=== PATIENT | female | born 1985 | race African-American/Black ===

== ENCOUNTER 2017-07-01 14:03 | Outpatient (CLI) | payer MEDICAID ==
[~2017-07-01] VITALS: Ht 167.6 cm; Wt 85.4 kg
[~2017-07-01 14:03] MED LIST: CALC500T7 PO; DCS100C PO; HC2.5C30 TOP; HYDR-3720 PO; HYDR1TAB PO; IBP800T PO; METR500T PO; NITR-65 PO; OMEP40CA36 PO; ONDA-43 PO; ONDA8TAB9 PO; PNT40TEC PO; PREN1TAB71 PO; SCR1T PO; SRTR100T PO; TRAM50TA2 PO; TRAZ150T42 PO
[2017-07-01 14:20] VITALS: BP 120/82
--- NOTE | 2017-07-04 08:09 | Physician Query-Final Dx ---
ROLAND OQUENDO 07/04/17 0809: Clinic Account Progress/Dx Physician Query: Please give diagnosis Date of Service Jul 01, 2017 at 14:03 MARY AMEZCUA DO 07/19/17 1043: Clinic Account Progress/Dx DIAGNOSIS: Diagnosis low back pain third trimester ROLAND OQUENDO Jul 04, 2017 08:09 MARY AMEZCUA DO Jul 19, 2017 10:43
== END 2017-07-01 15:40 | disposition home or self-care (01) ==
LOC: WSo 14:03 → LDRP 14:03 → WSo 15:40
PROVIDERS: ATTEND Obstetrics & Gynecology
DX: O99.89 Other specified diseases and conditions complicating pregnancy, childbirth and the puerperium (principal); M54.5 Low back pain; Z3A.32 32 weeks gestation of pregnancy
CPT/HCPCS: 99213

== ENCOUNTER 2017-07-20 12:08 | Outpatient (CLI) | payer MEDICAID ==
[~2017-07-20] VITALS: Ht 160 cm; Wt 84.4 kg
[2017-07-20 12:20] VITALS: BP 115/66
[2017-07-20] MEDS: D5 LR IV SOLUTION 1,000 ML IV SCH ×3 (12:25→16:30)
[2017-07-20 12:37] LABS: BASOPHILS % (AUTO) 0 % (0-10); EOSINOPHILS # (AUTO) 0.2 10^3/uL (0.0-0.3); EOSINOPHILS % (AUTO) 1 % (0-10); LYMPHOCYTES # (AUTO) 3.7 X 10^3 (1.0-4.0); LYMPHOCYTES % (AUTO) 22 % (12-44); MEAN CORPUSCULAR HEMOGLOBIN 28 PG (25-34); MEAN CORPUSCULAR HGB CONC 34 G/DL (32-36); MEAN CORPUSCULAR VOLUME 83 FL (80-99); MEAN PLATELET VOLUME 9.2 FL (7.4-10.4); MONOCYTES # (AUTO) 1.8 X 10^3 (0.0-1.0); MONOCYTES % (AUTO) 10 % (0-12); NEUTROPHILS # (AUTO) 11.4 X 10^3 (1.8-7.8); NEUTROPHILS % (AUTO) 67 % (42-75); PLATELET COUNT 365 10^3/uL (130-400); RED BLOOD COUNT 4.07 10^6/uL (4.35-5.85); RED CELL DISTRIBUTION WIDTH 13.9 % (10.0-14.5); WHITE BLOOD COUNT 17.2 10^3/uL (4.3-11.0)
[2017-07-20 12:55] LABS: BAND NEUTROPHILS 1 %; EOSINOPHILS % (MANUAL) 2 %; LYMPHOCYTES % (MANUAL) 21 %; NEUTROPHILS % (MANUAL) 67 %
[2017-07-20] MEDS ORDERED: CITRIC ACID/SOB CIT (BICITRA) 30 ML UDC PO ONE (15:00)
[2017-07-20 15:10] VITALS: BP 118/59
--- NOTE | 2017-07-20 17:15 | Progress Note-Standard ---
Standard Progress Note Progress Notes/Assess & Plan Date Seen by Provider: Jul 20, 2017 Time Seen by Provider: 17:10 Progress/Assessment & Plan this patient is a 31-year-old female currently at 35 gestation. She was seen in my clinic on this date for routine follow-up. She did complain of sensation of leaking fluid per the vagina in the night. she also complained of feeling somewhat queasy and with decreased appetite and increased thirst. Nitrazine was performed on the vaginal discharge that was negative. Fern test was performed on a sample of the vaginal discharge taken from the posterior fornix. That was negative. Patient denied bleeding. An ultrasound was performed showing an DECLAN of 41 mm. Patient was sent to labor and delivery for medical evaluation for lab work and for hydration. Her lab work follows Laboratory Tests 07/20/17 12:26 Vital Signs Date Time Temp Pulse Resp B/P (MAP) Pulse Ox O2 Delivery O2 Flow Rate FiO2 07/20/17 15:10 98.0 112 20 118/59 Room Air 07/20/17 12:20 97.3 114 20 115/66 Room Air I & O 07/21/17 07:00 Intake Total 1000 ml Balance 1000 ml monitor shows a beautifully reactive heart rate strip. Bedside sono shows an DECLAN of 58 mm. patient reports feeling significantly improved after her hydration. Her physical exam is unremarkable. She does appear to be comfortable. Assessment and plan 35+ week gestation with oligohydramnios likely due to mild dehydration possibly due to a viral syndrome. She is symptomatically improved with hydration the DECLAN has increased from 41mm to 58 mm which is still somewhat low but it is within the range of normal that being from 50 mm to 240 mm. Plan is for discharge home with strict regard options to return to clinic for any signs or symptoms or indications of leaking fluid, labor, progressive unrelenting nausea vomiting or diarrhea. Patient is return to clinic next week as scheduled and when necessary. Final Diagnosis oligohydramnios/dehydration LYNDA DE LEON MD Jul 20, 2017 5:15 pm
== END 2017-07-20 17:15 | disposition home or self-care (01) ==
LOC: WSo 12:08 → LDRP 12:09 → 3RD 12:38 → LDRP 12:38 → WSo 17:15
PROVIDERS: ATTEND Obstetrics & Gynecology
DX: O41.03X0 Oligohydramnios, third trimester, not applicable or unspecified (principal); E86.0 Dehydration; Z3A.35 35 weeks gestation of pregnancy
CPT/HCPCS: 36415; 85007; 85027; 86850; 86900; 86901; 96360; 96361; 99213

== ENCOUNTER 2017-07-21 02:27 | Outpatient (CLI) | payer MEDICAID ==
[~2017-07-21] VITALS: Ht 160 cm; Wt 86.2 kg
[2017-07-21] MEDS ORDERED: D5 LR IV SOLUTION 1,000 ML IV ONE (02:45)
[2017-07-21] MEDS ORDERED: ONDANSETRON 4 MG/2 ML (SDV) Z0FRAN ONE (02:50)
[2017-07-21 03:00] VITALS: BP 114/69
[2017-07-21] MEDS: D5 LR IV SOLUTION 1,000 ML IV SCH ×2 (03:00→07:34)
[2017-07-21] MEDS ORDERED: ONDANSETRON 4 MG/2 ML (SDV) Z0FRAN IVP ONE (03:15)
[2017-07-21 03:19] LABS: BILIRUBIN,URINE NEGATIVE (NEGATIVE); KETONES,URINE NEGATIVE (NEGATIVE); LEUKOCYTE ESTERASE ,URINE 1+ (NEGATIVE); NITRITE,URINE NEGATIVE (NEGATIVE); PH,URINE 8 (5-9); PROTEIN,URINE NEGATIVE (NEGATIVE); UROBILINOGEN,URINE NORMAL (NORMAL)
[2017-07-21 03:20] LABS: BASOPHILS % (AUTO) 0 % (0-10); EOSINOPHILS # (AUTO) 0.3 10^3/uL (0.0-0.3); EOSINOPHILS % (AUTO) 1 % (0-10); LYMPHOCYTES # (AUTO) 4.1 X 10^3 (1.0-4.0); LYMPHOCYTES % (AUTO) 22 % (12-44); MEAN CORPUSCULAR HEMOGLOBIN 27 PG (25-34); MEAN CORPUSCULAR HGB CONC 33 G/DL (32-36); MEAN CORPUSCULAR VOLUME 84 FL (80-99); MEAN PLATELET VOLUME 9.4 FL (7.4-10.4); MONOCYTES # (AUTO) 2.1 X 10^3 (0.0-1.0); MONOCYTES % (AUTO) 12 % (0-12); NEUTROPHILS # (AUTO) 11.8 X 10^3 (1.8-7.8); NEUTROPHILS % (AUTO) 64 % (42-75); PLATELET COUNT 355 10^3/uL (130-400); RED BLOOD COUNT 3.61 10^6/uL (4.35-5.85); RED CELL DISTRIBUTION WIDTH 13.7 % (10.0-14.5); WHITE BLOOD COUNT 18.3 10^3/uL (4.3-11.0)
[2017-07-21 03:40] LABS: ALANINE AMINOTRANSFERASE 6 U/L (0-55); ALBUMIN 2.7 GM/DL (3.2-4.5); ANION GAP 9 MMOL/L (5-14); ASPARTATE AMINO TRANSFERASE 9 U/L (5-34); BILIRUBIN,TOTAL 0.2 MG/DL (0.1-1.0); BLOOD UREA NITROGEN 4 MG/DL (7-18); BUN/CREATININE RATIO 7; CALCIUM 8.8 MG/DL (8.5-10.1); CARBON DIOXIDE 23 MMOL/L (21-32); CHLORIDE 106 MMOL/L (98-107); CREATININE SERUM 0.56 MG/DL (0.60-1.30); GFR ESTIMATED > 60; GLUCOSE 93 MG/DL (70-105); POTASSIUM 3.5 MMOL/L (3.6-5.0); SODIUM 138 MMOL/L (135-145); TOTAL PROTEIN 5.3 GM/DL (6.4-8.2)
[2017-07-21 03:46] LABS: BAND NEUTROPHILS 2 %; EOSINOPHILS % (MANUAL) 1 %; HYPOCHROMASIA SLIGHT; LYMPHOCYTES % (MANUAL) 16 %; NEUTROPHILS % (MANUAL) 74 %
[2017-07-21] MEDS ORDERED: CLINDAMYCIN 900 MG/6ML (CLEOCIN) VIAL ONE (03:53)
[2017-07-21] MEDS ORDERED: NS (IVPB) 50 ML ONE (03:54)
[2017-07-21] MEDS ORDERED: CLINDAMYCIN INJECTION 900 MG in NS (IVPB) 50 ML IV SCH ×2 (06:00→12:00)
[2017-07-21 07:25] VITALS: BP 107/67
--- NOTE | 2017-07-21 07:54 | Progress Note-Standard ---
Standard Progress Note Progress Notes/Assess & Plan Date Seen by Provider: Jul 21, 2017 Time Seen by Provider: 07:50 Progress/Assessment & Plan this patient is a 31-year-old female at 35-6/7 weeks' gestation. She was just released last evening after being clinically evaluated through the day and hydrated due to oligohydramnios. Inclining with oligo sent to labor and delivery hydrated and her oligo had improved from 41 mm at 58mm.with the oligohydramnios resolved to a satisfactory point patient was discharged home. Patient returned down last evening with unrelenting nausea and vomiting. She was not febrile. She denied ruptured membranes or bleeding. She had no diarrhea. She again was hydrated and treated with antiemetics to good effect. This morning patient is already requesting discharge. Her nausea has resolved. She is having no contractions. She denies ruptured membranes or bleeding. Allergies are Ceclor Medications are vitamins Medical social surgical obstetric and family history is upper that apartment. Patient generally is well-developed well-nourished female currently no acute distress. The abdomen is soft nontender gravid and benign She'll be show clubbing cyanosis. Pelvic exam is deferred. monitor showed normal heart rate pattern no contractions Laboratory Tests 07/21/17 03:00 assessment and plan 35 and 6 weeks gestation with hyperemesis likely due to viral syndrome. Patient is symptomatically improved and requested discharge home. Patient will be discharged with follow-up in clinic. Final Diagnosis viral gastroenteritis/hyperemesis LYNDA DE LEON MD Jul 21, 2017 7:54 am
--- NOTE | 2017-07-21 07:55 | Discharge Instructions ---
Discharge Instructions Discharge Medications New, Converted or Re-Newed RX: Other Patient Instructions Patient Instructions: as directed Return to [facility] For: as directed Activity & Diet Discharge Diet: No Restrictions Activity as Tolerated: Yes Orders-Post D/C & Referrals return to clinic when necessary and as scheduled for OB LYNDA DE LEON MD Jul 21, 2017 7:55 am
[2017-07-21 08:05] VITALS: BP 107/67
== END 2017-07-21 08:05 | disposition home or self-care (01) ==
LOC: LDRP 02:27 → WSo 02:27
PROVIDERS: ATTEND Obstetrics & Gynecology
DX: O98.513 Other viral diseases complicating pregnancy, third trimester (principal); A08.4 Viral intestinal infection, unspecified; Z3A.35 35 weeks gestation of pregnancy
CPT/HCPCS: 36415; 80053; 81000; 85007; 85027; 87088; 96361; 96374; 96375; 99213

== ENCOUNTER 2017-07-28 13:08 | Outpatient (CLI) | payer MEDICAID ==
[~2017-07-28] VITALS: Ht 160 cm; Wt 85.3 kg
[2017-07-28 13:23] VITALS: BP 122/67
[2017-07-28] MEDS ORDERED: ACET-2267 PO (13:32)
[2017-07-28] MEDS ORDERED: AZIT1PAC11 PO (13:32)
--- NOTE | 2017-07-29 11:21 | Physician Query-Final Dx ---
ROLAND OQUENDO 07/29/17 1121: Clinic Account Progress/Dx Physician Query: Please give diagnosis Date of Service Jul 28, 2017 at 13:08 LYNDA DE LEON MD 07/29/17 1145: Clinic Account Progress/Dx DIAGNOSIS: Diagnosis false labor ROLAND OQUENDO Jul 29, 2017 11:21 LYNDA DE LEON MD Jul 29, 2017 11:45
== END 2017-07-28 14:05 | disposition home or self-care (01) ==
LOC: WSo 13:08 → LDRP 13:09 → WSo 14:05
PROVIDERS: ATTEND Obstetrics & Gynecology
DX: O47.03 False labor before 37 completed weeks of gestation, third trimester (principal); Z3A.36 36 weeks gestation of pregnancy
CPT/HCPCS: 99213

== ENCOUNTER 2017-08-05 13:45 | Inpatient (IN) | payer MEDICAID ==
[~2017-08-05] VITALS: Ht 160 cm; Wt 85.3 kg
[~2017-08-05 13:45] MED LIST changes: +ACET-2267 PO; +AZIT1PAC11 PO
--- OUTSIDE RECORDS SUMMARY | 2017-08-05 13:53 | XMS REPORT ---
Author Author GENERATED, SYSTEM Organization Unknown Address Unknown Phone Unavailable Care Team Providers Care Replenishment Merchandising Associate Name Role Phone PP Unavailable Reason For Visit Chief Complaint VAGINAL BLEEDING Social History Functional Status Vital Signs Results Chemistry from 12/24/2016 8:54 PMSODIUM 138 MMOL/L (136-145 MMOL/L) POTASSIUM 3.6 MMOL/L (3.5-5.1 MMOL/L) CHLORIDE 102 MMOL/L (98-107 MMOL/L) TCO2 28.2 MMOL/L (21.0-32.0 MMOL/L) *ANION GAP 7.8 MMOL/L L (8.0-16.0 MMOL/L) BUN 14 MG/DL (7-18 MG/DL) CREATININE 0.78 MG/DL (0.55-1.02 MG/DL) *BUN/CREATININE RATIO 17.9 H (9.1-17.0 ) GLUCOSE 96 MG/DL (65-99 MG/DL) *GFR EST NON AFR EGYPTIAN >90 ML/MIN (Reference Range: not available) *GFR EST AFR AMER >90 ML/MIN (Reference Range: not available) CALCIUM 9.0 MG/DL (8.5-10.1 MG/DL) BILIRUBIN TOTAL 0.20 MG/DL (0.20-1.00 MG/DL) TOTAL PROTEIN 6.9 GM/DL (6.4-8.2 GM/DL) ALBUMIN 3.6 GM/DL (3.4-5.0 GM/DL) *GLOBULIN 3.3 GM/DL (2.3-3.5 GM/DL) *A/G RATIO 1.1 MG/DL L (1.5-2.2 MG/DL) ALK PHOS 55 U/L (46-116 U/L) ALT (SGPT) 14 U/L L (16-63 U/L) AST (SGOT) 11 U/L L (15-37 U/L) LIPASE 119 U/L (73-393 U/L) HCG QUANT 35972 MIU/ML H (0-6 MIU/ML) Hematology from 12/24/2016 8:54 PMWBC 15.2 X10e3/UL H (3.6-11.2 X10e3/UL) RBC 4.77 X10e6/UL (3.63-4.92 X10e6/UL) HEMOGLOBIN 13.2 G/DL (11.0-14.3 G/DL) HEMATOCRIT 40.4 % (31.2-41.9 %) *MCV 84.9 FL (79.0-98.0 FL) *MCH 27.7 PG (27.0-33.0 PG) *MCHC 32.7 G/DL (32.0-36.0 G/DL) *RDW 14.3 % (12.3-17.0 %) *RDWSD 42.4 (37.1-47.8 ) PLATELET 284 X10e3/UL (159-386 X10e3/UL) *MPV 7.7 FL (7.4-10.4 FL) AUTOMATED DIFF PERFORMED (Reference Range: not available) SEGS 58.6 % (Reference Range: not available) *LYMPHOCYTES 31.0 % (Reference Range: not available) *MONOCYTES 7.6 % (Reference Range: not available) *EOSINOPHILS 2.0 % (Reference Range: not available) *BASOPHILS 0.8 % (Reference Range: not available) *ABSOLUTE NEUTROPHILS 8.90 X10e3/UL H (1.80-7.80 X10e3/UL) *ABSOLUTE LYMPHOCYTES 4.70 X10e3/UL H (1.00-3.00 X10e3/UL) *ABSOLUTE MONOCYTES 1.20 X10e3/UL H (0.30-1.00 X10e3/UL) *ABSOLUTE EOSINOPHILS 0.30 X10e3/UL (0.00-0.50 X10e3/UL) *ABSOLUTE BASOPHILS 0.10 X10e3/UL (0.00-0.20 X10e3/UL) Urinalysis from 12/24/2016 9:15 PM*URINE COLOR STRAW (STRAW/YELL/DK YELL ) *URINE APPEARANCE CLEAR (CLEAR ) URINE PH 7.0 (5.0-8.0 ) URINE SPECIFIC GRAVITY 1.020 (<=1.005->=1.030 ) *URINE GLUCOSE NEGATIVE MG/DL (NEGATIVE MG/DL) *URINE BILIRUBIN NEGATIVE (NEGATIVE ) *URINE KETONES NEGATIVE MG/DL (NEGATIVE MG/DL) *URINE BLOOD NEGATIVE (NEGATIVE ) *URINE PROTEIN NEGATIVE MG/DL (NEGATIVE MG/DL) *URINE UROBILINOGEN 0.2 EU/DL (0.2-1.0 EU/DL) *URINE NITRITES POSITIVE A (NEGATIVE ) *URINE LEUKOCYTES NEGATIVE (NEGATIVE ) *MICROSCOPIC EXAM PERFORMED PERFORMED (Reference Range: not available) *WBC URINE 0-1 /HPF (0-5 /HPF) *SQUAMOUS EP. CELLS FEW /LPF (NEG-FEW /LPF) *BACTERIA MANY /HPF A (NEGATIVE /HPF) Microbiology from 12/24/2016 11:45 PM* *SOHA- FUNGAL SMEAR Specimen Number: [id number] Sample Collection Date/Time: 12/24/2016 11:45 PM Specimen Source: Cervix Cervix *WET PREP: No Trichomonas seen No yeast seen Few Clue cells seen *SOHA- FUNGAL SMEAR: No yeast or fungal elements seen CULTURE GC PROFILE: No growth * *WET PREP Specimen Number: [id number] Sample Collection Date/Time: 12/24/2016 11:45 PM Specimen Source: Cervix Cervix *WET PREP: No Trichomonas seen No yeast seen Few Clue cells seen *SOHA- FUNGAL SMEAR: No yeast or fungal elements seen CULTURE GC PROFILE: No growth * CULTURE GC PROFILE (Preliminary Result) Specimen Number: [id number] Sample Collection Date/Time: 12/24/2016 11:45 PM Specimen Source: Cervix Cervix *WET PREP: No Trichomonas seen No yeast seen Few Clue cells seen CULTURE GC PROFILE: No growth *SOHA- FUNGAL SMEAR: No yeast or fungal elements seen Microbiology from 12/24/2016 9:15 PM* CULTURE URINE (Preliminary Result) Specimen Number: [id number] Sample Collection Date/Time: 12/24/2016 9:15 PM Specimen Source: Urine Clean Catch CULTURE URINE: Gram-negative bacillus >100,000 cfu/ml ID and Susceptibility to follow Blood Bank from 12/24/2016 9:13 PMRH TYPE POS (Reference Range: not available ) Problems Encounter Diagnosis No relevant problems exist. Encounters Encounter Diagnosis No relevant problems exist. Plan of Care Procedures No relevant procedures performed. Immunizations No immunizations administered or ordered. Hospital Course Hospital Discharge Instructions Allergies, Adverse Reactions, Alerts This section is inbound call center representative of the current allergy information, at the time of the CCD generation. In the case of regeneration of the CCD, the allergy information may not reflect the state of known allergies at the time of the CCD' s subject visit. * Latex Allergy has not been assessed. * IV Contrast Allergy has not been assessed. Medication Medication reconciliation has not been performed.
--- OUTSIDE RECORDS SUMMARY | 2017-08-05 13:53 | XMS REPORT ---
Author Author GENERATED, SYSTEM Organization Unknown Address Unknown Phone Unavailable Care Team Providers Care Uranium Processing Supervisor Name Role Phone PP Unavailable Reason For Visit Chief Complaint SCHOLIOSIS/BACK PAIN, NAUSEA Social History Functional Status Vital Signs Results Problems Encounter Diagnosis No relevant problems exist. Encounters Encounter Diagnosis No relevant problems exist. Plan of Care Procedures No relevant procedures performed. Immunizations No immunizations administered or ordered. Hospital Course Hospital Discharge Instructions Allergies, Adverse Reactions, Alerts * Latex Allergy has not been assessed. * IV Contrast Allergy has not been assessed. Medication Medication reconciliation has not been performed.
--- OUTSIDE RECORDS SUMMARY | 2017-08-05 13:54 | XMS REPORT ---
Author Author GENERATED, SYSTEM Organization Unknown Address Unknown Phone Unavailable Care Team Providers Care Cane Flume Feeding Machine Operator Name Role Phone PP Unavailable Reason For Visit Chief Complaint TOOTH PAIN Social History Functional Status Vital Signs Results Problems Encounter Diagnosis No relevant problems exist. Encounters Encounter Diagnosis No relevant problems exist. Plan of Care Procedures No relevant procedures performed. Immunizations No immunizations administered or ordered. Hospital Course Hospital Discharge Instructions Allergies, Adverse Reactions, Alerts This section is sales representative gas service of the current allergy information, at the [...]
--- OUTSIDE RECORDS SUMMARY | 2017-08-05 13:54 | XMS REPORT | Summary of Care ---
Author Author Francis Cano M.D. Organization Unknown Address Unknown Phone Unavailable Care Team Providers Care Senior Environmental Scientist Name Role Phone Francis Cano M.D. Unavailable Unavailable No Assigned PCP-Pt Confirmed Unavailable Unavailable Functional Status Name Dates Details Functional status health issues are not documented Status: Name Dates Details Cognitive status health issues are not documented Status: Problems Name Dates Details Encounter for supervision of normal in multigravida in second trimester (V22.1, Z34.82) Status: Active Medications Name Dates Details PNV Plus Multivitamin 27-1 MG Oral Tablet Brian Cano M.D. E * Start Active Allergies and Adverse Reactions Name Dates Details Ceclor CAPS (Allergy) Status: Active Procedures Procedure Dates Details Chlamydia/GC TMA Assay [id number] Ordered: HIV Ag/Ab Combo 3405 Ordered: OBSTETRIC PANEL 2130 Ordered: Immunization Name Dates Details Immunizations not documented Social History Name Dates Details Unknown if ever smoked Vital Signs Date Test Result Details 14:14 BP Systolic 102 mm[Hg] Status: Comments: Location: ; Position: BP Diastolic 58 mm[Hg] Status: Comments: Location: ; Position: Height 63 in Status: Weight 165 lb Status: Body Mass Index Calculated 29.23 kg/m2 Status: Body Surface Area Calculated 1.78 m2 Status: Results Date Description Value Details 15:53 CBC w/ Auto Diff 7150 Comments: Manual differential indicated. WBC 15.8 K/uL (Above high threshold) Range: 4.5-11.0 RBC 4.70 mil/uL Range: 3.60-5.00 HGB 13.7 g/dL Range: 12.0-16.0 HCT 39.5 % Range: 36.0-48.0 MCV 84.2 fL Range: 80.0-99.0 MCH 29.2 pg Range: 27.3-32.5 MCHC 34.7 % Range: 32.0-36.0 RDW 13.7 % Range: 11.6-14.8 PLATELETS 273 K/uL Range: 150-400 MPV 7.1 fL Range: 6.0-11.0 16:16 Manual Differential 7400 SEGS 71 % Range: 37-80 BANDS 1 % Range: 0-7 LYMPH 24 % Range: 13-50 MONO 4 % Range: 0-12 EOSIN 0 % Range: 0-7 BASO 0 % Range: 0-3 KENNETH LYMPH 0 % Range: 0-0 META 0 % Range: 0-0 MYELO 0 % Range: 0-0 PRO 0 % Range: 0-0 BLAST 0 % Range: 0-0 NUC RBC 0 /100 WBC Range: 0-0 SMUDGE 0 /100 WBC PLATELET Adequate Range: Adequate Plan of Care Name Dates Details Planned Observations Planned Goals not documented Planned Encounters Appointment; Provider: Brian Cano M.D. On 06-Apr-2017 15:00 Interventions Provided Labs/Procedures/Imaging* Chlamydia/GC TMA Assay [id number]; To be Done: 09 Mar 2017 * HIV Ag/Ab Combo 3405; To be Done: 09 Mar 2017 * OBSTETRIC PANEL 2130; To be Done: 09 Mar 2017 Instructions Name Dates Details Instructions not documented Encounters Appointment; Brian Cano M.D. Encounter Diagnosis: Problem not documented On 14:15 Appointment; Brian Cano M.D. Encounter Diagnosis: Problem not documented On 10:00
--- OUTSIDE RECORDS SUMMARY | 2017-08-05 13:54 | XMS REPORT ---
Author Author CARLOS HAYES [facility] eClinicalWorks Address Unknown Phone Unavailable Care Team Providers Care Podiatry Assistant Name Role Phone CARLOS HAYES Unavailable Allergies No Known Allergies Problems Problem Type Condition ICD-9 Code Onset Dates Condition Status Assessment Dental examination V72.2 Active Problem Nondependent tobacco use disorder 305.1 Active Problem Counseling on substance use and abuse V65.42 Active Problem Dizziness and giddiness 780.4 Active Problem Sebaceous cyst 706.2 Active Problem Syncope and collapse 780.2 Active Problem Scoliosis (and kyphoscoliosis), idiopathic 737.30 Active Problem Shortness of breath 786.05 Active Problem Unspecified procreative management V26.9 Active Problem Unspecified backache 724.5 Active Medications No Known Medications Procedures Procedure Coding System Code Date PANORAMIC FILM SEE ALSO CODE 21976 CPT-4 D0330 May 01, 2015 LTD ORAL EVALUATION - PROBLEM FOCUS CPT-4 D0140 May 01, 2015 Results No Known Results Summary Purpose eClinicalWorks Submission
--- OUTSIDE RECORDS SUMMARY | 2017-08-05 13:54 | XMS REPORT ---
Author Author GENERATED, SYSTEM Organization Unknown Address Unknown Phone Unavailable Care Team Providers Care Staff Appraiser Name Role Phone PP Unavailable Reason For Visit Chief Complaint RIGHT SIDE PAIN Social History Functional Status Vital Signs Results Chemistry from 12/19/2016 12:19 PMSODIUM 137 MMOL/L (136-145 MMOL/L) POTASSIUM 3.9 MMOL/L (3.5-5.1 MMOL/L) CHLORIDE 103 MMOL/L (98-107 MMOL/L) TCO2 27.6 MMOL/L (21.0-32.0 MMOL/L) *ANION GAP 6.4 MMOL/L L (8.0-16.0 MMOL/L) BUN 8 MG/DL (7-18 MG/DL) CREATININE 0.72 MG/DL (0.55-1.02 MG/DL) *BUN/CREATININE RATIO 11.1 (9.1-17.0 ) GLUCOSE 79 MG/DL (65-99 MG/DL) *GFR EST NON AFR TURKMEN >90 ML/MIN (Reference Range: not available) *GFR EST AFR AMER >90 ML/MIN (Reference Range: not available) CALCIUM 8.5 MG/DL (8.5-10.1 MG/DL) BILIRUBIN TOTAL 0.60 MG/DL (0.20-1.00 MG/DL) TOTAL PROTEIN 6.9 GM/DL (6.4-8.2 GM/DL) ALBUMIN 3.6 GM/DL (3.4-5.0 GM/DL) *GLOBULIN 3.3 GM/DL (2.3-3.5 GM/DL) *A/G RATIO 1.1 MG/DL L (1.5-2.2 MG/DL) ALK PHOS 55 U/L (46-116 U/L) ALT (SGPT) 16 U/L (16-63 U/L) AST (SGOT) 12 U/L L (15-37 U/L) TEST POSITIVE (NEGATIVE ) Hematology from 12/19/2016 12:19 PMWBC 10.0 X10e3/UL (3.6-11.2 X10e3/UL) RBC 4.82 X10e6/UL (3.63-4.92 X10e6/UL) HEMOGLOBIN 13.6 G/DL (11.0-14.3 G/DL) HEMATOCRIT 40.6 % (31.2-41.9 %) *MCV 84.2 FL (79.0-98.0 FL) *MCH 28.2 PG (27.0-33.0 PG) *MCHC 33.5 G/DL (32.0-36.0 G/DL) *RDW 14.2 % (12.3-17.0 %) *RDWSD 42.4 (37.1-47.8 ) PLATELET 282 X10e3/UL (159-386 X10e3/UL) *MPV 7.7 FL (7.4-10.4 FL) AUTOMATED DIFF PERFORMED (Reference Range: not available) SEGS 54.9 % (Reference Range: not available) *LYMPHOCYTES 31.3 % (Reference Range: not available) *MONOCYTES 10.4 % (Reference Range: not available) *EOSINOPHILS 2.6 % (Reference Range: not available) *BASOPHILS 0.8 % (Reference Range: not available) *ABSOLUTE NEUTROPHILS 5.50 X10e3/UL (1.80-7.80 X10e3/UL) *ABSOLUTE LYMPHOCYTES 3.10 X10e3/UL H (1.00-3.00 X10e3/UL) *ABSOLUTE MONOCYTES 1.00 X10e3/UL (0.30-1.00 X10e3/UL) *ABSOLUTE EOSINOPHILS 0.30 X10e3/UL (0.00-0.50 X10e3/UL) *ABSOLUTE BASOPHILS 0.10 X10e3/UL (0.00-0.20 X10e3/UL) Problems Encounter Diagnosis No relevant problems exist. Encounters Encounter Diagnosis No relevant problems exist. Plan of Care Procedures No relevant procedures performed. Immunizations No immunizations administered or ordered. Hospital Course Hospital Discharge Instructions Allergies, Adverse Reactions, Alerts This section is financial services representative of the current allergy information, at [...]
--- OUTSIDE RECORDS SUMMARY | 2017-08-05 13:54 | XMS REPORT ---
Author Author GENERATED, SYSTEM Organization Unknown Address Unknown Phone Unavailable Care Team Providers Care Linoleum Printer Name Role Phone PP Unavailable Reason For Visit Chief Complaint 9 WKS PREG. BLEEDING Social History Functional Status Vital Signs Results Urinalysis from 01/12/2017 10:15 AM*URINE COLOR YELLOW (STRAW/YELL/DK YELL ) *URINE APPEARANCE SL CLOUDY A (CLEAR ) URINE PH 6.0 (5.0-8.0 ) URINE SPECIFIC GRAVITY 1.020 (<=1.005->=1.030 ) *URINE GLUCOSE NEGATIVE MG/DL (NEGATIVE MG/DL) *URINE BILIRUBIN NEGATIVE (NEGATIVE ) *URINE KETONES NEGATIVE MG/DL (NEGATIVE MG/DL) *URINE BLOOD NEGATIVE (NEGATIVE ) *URINE PROTEIN NEGATIVE MG/DL (NEGATIVE MG/DL) *URINE UROBILINOGEN 0.2 EU/DL (0.2-1.0 EU/DL) *URINE NITRITES POSITIVE A (NEGATIVE ) *URINE LEUKOCYTES TRACE A (NEGATIVE ) *MICROSCOPIC EXAM PERFORMED PERFORMED (Reference Range: not available) *WBC URINE 25-50 /HPF A (0-5 /HPF) *SQUAMOUS EP. CELLS FEW /LPF (NEG-FEW /LPF) *MUCOUS THREADS FEW /LPF A (NEGATIVE /LPF) *BACTERIA FEW /HPF A (NEGATIVE /HPF) Microbiology from 01/12/2017 10:45 AM* *SOHA- FUNGAL SMEAR Specimen Number: [id number] Sample Collection Date/Time: 01/12/2017 10:45 AM Specimen Source: Genital Vaginal/Cervix *WET PREP: Many Clue cells seen No Trichomonas seen *SOHA- FUNGAL SMEAR: No yeast or fungal elements seen * *WET PREP Specimen Number: [id number] Sample Collection Date/Time: 01/12/2017 10:45 AM Specimen Source: Genital Vaginal/Cervix *WET PREP: Many Clue cells seen No Trichomonas seen *SOHA- FUNGAL SMEAR: No yeast or fungal elements seen Problems Encounter Diagnosis No relevant problems exist. Encounters Encounter Diagnosis No relevant problems exist. Plan of Care Procedures No relevant procedures performed. Immunizations No immunizations administered or ordered. Hospital Course Hospital Discharge Instructions Allergies, Adverse Reactions, Alerts This section is entry level marketing representative of the current allergy information, at [...]
--- OUTSIDE RECORDS SUMMARY | 2017-08-05 13:54 | XMS REPORT ---
Author CARLOS Hernandez Organization eClinicalWorks Address Unknown Phone Unavailable Care Team Providers Care Crystalizer Operator Name Role Phone CARLOS PAULINO CP Unavailable Allergies No Known Allergies Problems Problem Type Condition Code Onset Dates Condition Status Problem Counseling on substance use and abuse V65.42 Active Problem Shortness of breath 786.05 Active Problem Nondependent tobacco use disorder 305.1 Active Assessment Gastritis, presence of bleeding unspecified, unspecified chronicity , unspecified gastritis type K29.70 Active Problem Syncope and collapse 780.2 Active Problem Dizziness and giddiness 780.4 Active Problem Anxiety associated with depression F41.8 Active Problem Unspecified backache 724.5 Active Problem Scoliosis (and kyphoscoliosis), idiopathic 737.30 Active Problem Sebaceous cyst 706.2 Active Problem Unspecified procreative management V26.9 Active Medications No Known Medications Procedures Procedure Coding System Code Date Office Visit, New Pt., Level 2 CPT-4 91196 Apr 27, 2016 Vital Signs Date/Time: Apr 27, 2016 Cardiac Monitoring Heart Rate 78 bpm Weight 141 lbs Height 63 in BMI 24.97 Index Blood Pressure Diastolic 76 mmHg Blood Pressure Systolic 108 mmHg Results No Known Results Summary Purpose eClinicalWorks Submission
[2017-08-05] MEDS ORDERED: LACTATED RINGERS 1,000 ML IV ONE (13:55)
[2017-08-05 14:00] VITALS: BP 103/66
[2017-08-05] MEDS ORDERED: LACTATED RINGERS 1,000 ML IV PRN ×2 (14:31)
[2017-08-05 14:37] LABS: BASOPHILS % (AUTO) 0 % (0-10); EOSINOPHILS # (AUTO) 0.2 10^3/uL (0.0-0.3); EOSINOPHILS % (AUTO) 1 % (0-10); LYMPHOCYTES # (AUTO) 3.6 X 10^3 (1.0-4.0); LYMPHOCYTES % (AUTO) 20 % (12-44); MEAN CORPUSCULAR HEMOGLOBIN 27 PG (25-34); MEAN CORPUSCULAR HGB CONC 33 G/DL (32-36); MEAN CORPUSCULAR VOLUME 83 FL (80-99); MEAN PLATELET VOLUME 10.3 FL (7.4-10.4); MONOCYTES # (AUTO) 1.7 X 10^3 (0.0-1.0); MONOCYTES % (AUTO) 9 % (0-12); NEUTROPHILS # (AUTO) 12.7 X 10^3 (1.8-7.8); NEUTROPHILS % (AUTO) 70 % (42-75); PLATELET COUNT 366 10^3/uL (130-400); RED BLOOD COUNT 4.36 10^6/uL (4.35-5.85); WHITE BLOOD COUNT 18.2 10^3/uL (4.3-11.0)
[2017-08-05] MEDS ORDERED: CATHETER FLUSH 10 ML SYR IV PRN (14:45)
[2017-08-05] MEDS ORDERED: FAMOTIDINE 20MG/2ML IV (PEPCID) IV ONE ×2 (14:45→17:30)
[2017-08-05] MEDS ORDERED: METOCLOPRAMIDE INJ 10 MG/2 ML (REGLAN) IV ONE ×2 (14:45→17:30)
[2017-08-05] MEDS ORDERED: ceFAZolin 2 GM/50 ML NS 50 ML IV ONE (14:45)
[2017-08-05] MEDS ORDERED: CITRIC ACID/SOB CIT (BICITRA) 30 ML UDC PO ONE ×2 (14:45→17:30)
[2017-08-05] MEDS ORDERED: metroNIDAZOLE 500MG/100ML IVPB 100 ML IV ONE (14:45)
[2017-08-05 14:51] LABS: BAND NEUTROPHILS 0 %; BASOPHILS % (MANUAL) 0 %; EOSINOPHILS % (MANUAL) 2 %; LYMPHOCYTES % (MANUAL) 12 %; NEUTROPHILS % (MANUAL) 70 %; REACTIVE LYMPHOCYTES 8 %
[2017-08-05] MEDS ORDERED: ONDANSETRON 4 MG/2 ML (SDV) Z0FRAN ONE ×2 (16:55→18:24)
[2017-08-05] MEDS ORDERED: KETOROLAC 30 MG/ML VIAL ONE ×2 (16:55→18:24)
[2017-08-05] MEDS ORDERED: D5 LR IV SOLUTION 1,000 ML IV SCH (17:18)
--- NOTE | 2017-08-05 17:26 | History & Physical ---
History and Physical Date Seen by Provider: Aug 05, 2017 Time Seen by Provider: 17:24 this patient is a 31-year-old female at 37-5/7 weeks gestation who has had a previous she was cleaned and clinic on this date found to have an DECLAN of 27. Her DECLAN has been borderline around 50 for a couple of weeks at one point she was admitted with a low DECLAN hydrated and a recovered. She's 37-5/7 weeks' gestation with fairly significant decrease in her DECLAN she is admitted now for repeat delivery. She denies rupture membranes or bleeding and assessment for amniotic fluid per the vagina was negative. Allergies are to Ceclor Medications are vitamins Past medical history, past surgical history, obstetric history, family history, and social histories are per the antepartum record HEENT exam is normal Neck is supple no lymphadenopathy and no thyromegaly Abdomen is gravid soft nontender nondistended the fundal height is about low side Pelvic exam is deferred Extreme show clubbing cyanosis. There is no Homans sign Laboratory Tests 08/05/17 14:00 White blood cell count is elevated hemoglobin is normal platelet count is normal Assessment and plan 37-5/7 weeks' gestation in a patient with severe oligohydramnios and previous . Of note is that her white count is elevated. Plan is for admission for repeat delivery now 37-5/7 weeks' gestation with previous and severe oligohydramnios Allergies and Home Medications Allergies Coded Allergies: cefaclor (Verified Allergy, Intermediate, HIVES, 08/24/07) Home Medications Acetaminophen 500 Mg Tablet, 1,000 MG PO Q6H, (Reported) Vit/Fe Fumarate/Fa 1 Each Tablet, 1 EACH PO HS, (Reported) Clinical Quality Measures DVT/VTE Risk/Contraindication: Risk Factor Score Per Nursin RFS Level Per Nursing on Admit: 1=Low/No VTE PPX LYNDA DE LEON MD Aug 05, 2017 5:26 pm
--- NOTE | 2017-08-05 17:27 | Progress Note-Post Operative ---
Post-Operative Progess Note Surgeon (s)/Stock Grader (s) Surgeon LYNDA DE LEON MD Stock Grader: Radha Auguste Pre-Operative Diagnosis 37 5/7 weeks' gestation with severe oligohydramnios and previous Post-Operative Diagnosis signed Procedure & Operative Findings Date of Procedure 08/05/17 Procedure Performed/Findings repeat low transverse delivery Anesthesia Type spinal Estimated Blood Loss Estimated blood loss (mL): 350cc Specimens/Packing Specimens Removed placenta and umbilical cord and cord bloods Packing: none LYNDA DE LEON MD Aug 05, 2017 17:27
[2017-08-05] MEDS ORDERED: LACTATED RINGERS 1,000 ML IV SCH ×2 (17:28)
[2017-08-05] MEDS ORDERED: CLINDAMYCIN 900 MG/6ML (CLEOCIN) VIAL ONE (17:29)
[2017-08-05] MEDS ORDERED: D5 LR IV SOLUTION 1,000 ML IV ONE (17:29)
[2017-08-05] MEDS ORDERED: MEPERIDINE (DEMEROL) INJ 100 MG/ML IM PRN (17:30)
[2017-08-05] MEDS ORDERED: PROMETHAZINE INJ 25 MG/ML (PHENERGAN) AMP IM PRN (17:30)
[2017-08-05] MEDS ORDERED: CLINDAMYCIN INJECTION 900 MG in NS (IVPB) 50 ML IV ONE (17:30)
[2017-08-05] MEDS ORDERED: MEASLES,MUMPS,RUBELLA 1 EA INJ SC ONE (17:30)
[2017-08-05] MEDS ORDERED: TETANUS,DIPTH,PERTUSS P/F (BOOSTRIX) 0.5 ML VIAL IM ONE (17:30)
[2017-08-05] MEDS ORDERED: NS (IVPB) 50 ML ONE (17:30)
[2017-08-05] MEDS ORDERED: ONDANSETRON 4 MG/2 ML (SDV) Z0FRAN IVP PRN (17:30)
[2017-08-05] MEDS ORDERED: fentaNYL INJECTION 100 MCG/2 ML AMP ONE (18:07)
[2017-08-05] MEDS ORDERED: DEXAMETHASONE 10 MG/ML (DECADRON) 1 ML VIAL ONE (18:24)
[2017-08-05] MEDS ORDERED: OXYTOCIN/NORMAL SALINE 1,000 ML IV ONE (18:38)
[2017-08-05] MEDS: KETOROLAC 30 MG/ML VIAL IVP SCH (19:00)
[2017-08-05 19:55] VITALS: BP 99/67
[2017-08-05 21:00] VITALS: BP 101/64
[2017-08-05] MEDS: OXYTOCIN/NORMAL SALINE 500 ML IV SCH (21:00)
[2017-08-05] MEDS: oxyCODONE/APAP 10/325MG (PERCOCET 10) TABLET PO PRN ×2 (21:59→22:51)
[2017-08-06] VITALS: BP 99/58
[2017-08-06] MEDS: OXYTOCIN/NORMAL SALINE 500 ML IV SCH (01:01)
--- NOTE | 2017-08-06 03:43 | OPERATIVE REPORT ---
DATE OF SERVICE: 08/05/2017 PREOPERATIVE DIAGNOSES: Term at 37-5/7 weeks' gestation with previous and with severe oligohydramnios. POSTOPERATIVE DIAGNOSES: Term at 37-5/7 weeks' gestation with previous and with severe oligohydramnios. OPERATIVE PROCEDURE: Repeat low transverse delivery of a viable male with Apgars of 8 and 9 at 1 and 5 minutes respectively, weight of 7 pounds 5 ounces. Cord arterial blood pH of 7.30 and a time of 1838. OPERATIVE DESCRIPTION: With the patient in the supine position under satisfactory spinal anesthesia, she was prepped and draped in the usual fashion for abdominal surgery. Gleason catheter was placed in the urinary bladder. Repeat Pfannenstiel incision made through the skin with a scalpel at the site of the patient's previous Pfannenstiel incision. The abdomen was entered in the usual manner. Bladder retractor placed in position and a clean scalpel used to make a 4 cm hysterotomy incision transversely across the lower uterine segment at this site. There was a large uterine window extending entirely across the lower uterine segment and approximately 2.5 to 3 cm in height. The membranes and the peritoneum were incised releasing a very small amount of amniotic fluid that was meconium stained. There was no particulate meconium. The incision was extended by blunt dissection. Sanchez forceps were applied to facilitate delivery of a vigorous viable male with Apgars of 8 and 9 at 1 and 5 minutes respectively, weight is 7 pounds and 5 ounces. Cord blood pH and time as noted above. The was bulb suctioned on delivery of the head and again on completion of delivery. The umbilical cord was doubly clamped and cut and the passed to Kathi Culp RN, the pediatric nurse in attendance for the delivery. The placenta delivered spontaneously Tillman. It was heavily calcified, but otherwise normal. It was sent to pathology for permanent section. The uterus was exteriorized, the anterior wiped clean with a wet laparotomy sponge. Uterine incision then closed with a running lock suture of 2-0 Vicryl. Hemostasis was complete. The uterus was returned to the abdominal cavity. All blood clot and debris removed from the abdominal cavity. Sponge and needle counts correct. Hemostasis assured. The anterior parietal peritoneum was closed with a running suture of 2-0 Vicryl. Rectus muscles were closed with that suture as well rectus fascia was closed with 2-0 Vicryl, subcutaneous tissue with 2-0 Vicryl and the skin was stapled. Sponge and needle counts were correct on completion of the procedure. ESTIMATED BLOOD LOSS: Around 350 mL. The patient tolerated the procedure well and was transferred to the recovery room in stable condition. The infant had been taken stable to the full term nursery under the care of nurse Culp. Job ID: [id number] DocumentID: [id number] Dictated Date: 08/05/2017 22:38:25 Station Cook Date: 08/06/2017 03:42:26 Dictated By: LYNDA DE LEON MD
[2017-08-06 03:52] VITALS: BP 108/65
[2017-08-06] MEDS: oxyCODONE/APAP 10/325MG (PERCOCET 10) TABLET PO PRN ×3 (03:52→16:59)
[2017-08-06] MEDS: KETOROLAC 30 MG/ML VIAL IVP SCH ×2 (06:13)
--- NOTE | 2017-08-06 07:16 | Progress Note-Standard ---
Standard Progress Note Progress Notes/Assess & Plan Date Seen by Provider: Aug 06, 2017 Time Seen by Provider: 07:14 Progress/Assessment & Plan is without complaint. She is ambulating, voiding, tolerating by mouth, has pain control. Patient denies chest pain, denies shortness of breath, denies headache, denies nausea vomiting. Vital Signs Date Time Temp Pulse Resp B/P (MAP) Pulse Ox O2 Delivery O2 Flow Rate FiO2 08/06/17 03:52 97.2 74 18 108/65 (79) 98 Room Air 08/06/17 00:00 97.2 90 20 99/58 (72) 97 Room Air 08/05/17 21:00 97.9 88 18 101/64 (76) 98 Room Air 08/05/17 19:55 98.1 78 20 99/67 (78) 99 Room Air 08/05/17 14:00 97.6 115 20 103/66 (78) Room Air I & O 08/06/17 07:00 Intake Total 1056 ml Output Total 450 ml Balance 606 ml vital signs stable. Patient is afebrile. abdomen is benign. Incision is clean dry and intact. Extremities show no clubbing cyanosis. Homans sign. There is some pretibial pitting edema that is normal. Assessment and plan postoperative day number 1 status post repeat doing well. Plan is for routine care today with likely discharge home tomorrow LYNDA DE LEON MD Aug 06, 2017 7:15 am
[2017-08-06] MEDS ORDERED: OXYC-465 PO (07:17)
[2017-08-06] MEDS ORDERED: DOCU100C37 PO (07:17)
[2017-08-06] MEDS ORDERED: IBUP-1780 PO (07:17)
--- NOTE | 2017-08-06 07:19 | Discharge Instructions ---
Discharge Instructions Discharge Medications New, Converted or Re-Newed RX: RX on Chart Patient Instructions Patient Instructions: as directed Return to The Hospital For: as directed Activity & Diet Discharge Diet: No Restrictions Activity as Tolerated: No Orders-Post D/C & Referrals Follow Up Appt: RTC on Saturday, August 12, 2017 at 930 a.m. for incision check. Call to make follow up appt. for patient in 4 weeks. Wound Care: Remove vandana, apply benzoin and steri strips. Activity Per routine post instructions. Diet as tolerated Patient may shower or tub bathe as desired. Continue home meds LYNDA DE LEON MD Aug 06, 2017 7:19 am
[2017-08-06] MEDS: DOCUSATE SODIUM 100 MG (COLACE) CAP PO SCH ×2 (10:01→21:06)
[2017-08-06] MEDS ORDERED: IBUPROFEN 800 MG (MOTRIN) TAB PO ONE (13:07)
[2017-08-06] MEDS: IBUPROFEN 800 MG (MOTRIN) TAB PO SCH ×2 (13:14→18:09)
--- NOTE | 2017-08-06 13:19 | Anesthesia-Regional Post-Op ---
Regional Patient Condition Mental Status: Alert, Oriented x3 Circulation: Same as Pre-Op Headache: Absent Sensation: Full Recovery Motor Block: Absent Post Op Complications Complications None Follow Up Care/Instructions Patient Instructions None needed. Anesthesia/Patient Condition Patient is doing well, no complaints per nursing staff, stable vital signs, no apparent adverse anesthesia problems. She was off the floor but ambulating well per nursing staff. Will be available if needed. SAIDA WISDOM DO Aug 06, 2017 13:19
[2017-08-06 15:21] VITALS: BP 106/71
[2017-08-06 21:06] VITALS: BP 91/53
[2017-08-07 03:49] VITALS: BP 87/57
[2017-08-07] MEDS: IBUPROFEN 800 MG (MOTRIN) TAB PO SCH ×3 (03:49→14:21)
[2017-08-07] MEDS: DOCUSATE SODIUM 100 MG (COLACE) CAP PO SCH (08:26)
[2017-08-07] MEDS: oxyCODONE/APAP 10/325MG (PERCOCET 10) TABLET PO PRN (08:26)
--- NOTE | 2017-08-07 10:16 | Progress Note-Standard ---
Standard Progress Note Progress Notes/Assess & Plan Date Seen by Provider: Aug 07, 2017 Time Seen by Provider: 10:15 Progress/Assessment & Plan is without complaint. She is ambulating, voiding, tolerating by mouth, has pain control. Patient denies chest pain, denies shortness of breath, denies headache, denies nausea vomiting. Vital Signs Date Time Temp Pulse Resp B/P (MAP) Pulse Ox O2 Delivery O2 Flow Rate FiO2 08/06/17 03:52 97.2 74 18 108/65 (79) 98 Room Air 08/06/17 00:00 97.2 90 20 99/58 (72) 97 Room Air 08/05/17 21:00 97.9 88 18 101/64 (76) 98 Room Air 08/05/17 19:55 98.1 78 20 99/67 (78) 99 Room Air 08/05/17 14:00 97.6 115 20 103/66 (78) Room Air I & O 08/06/17 07:00 Intake Total 1056 ml Output Total 450 ml Balance 606 ml vital signs stable. Patient is afebrile. abdomen is benign. Incision is clean dry and intact. Extremities show no clubbing cyanosis. Homans sign. There is some pretibial pitting edema that is normal. Assessment and plan postoperative day number 1 status post repeat doing well. Plan is for routine care today with likely discharge home tomorrow August 07, 2017. Patient is without complaint. She is ablating a voiding well has good pain control. She is requesting discharge home. Vital Signs Date Time Temp Pulse Resp B/P (MAP) Pulse Ox O2 Delivery O2 Flow Rate FiO2 08/07/17 03:49 97.7 82 18 87/57 (67) 97 Room Air 08/06/17 21:06 97.3 86 18 91/53 (66) 98 Room Air 08/06/17 15:21 97.9 74 18 106/71 (83) 99 Room Air I & O 08/07/17 07:00 Intake Total 1560 ml Output Total 900 ml Balance 660 ml Vital signs are stable. Patient is afebrile. abdomen is benign. Incision is clean dry and intact. Extreme show clubbing cyanosis. There is no Homans sign. Assessment and plan postoperative day number 2 status post repeat doing well. Plan is for discharge home with follow-up in clinic. If the baby is not discharged patient may room in. Final Diagnosis repeat at 37-5/7 weeks' gestation due to severe oligo LYNDA DE LEON MD Aug 07, 2017 10:16 am
[2017-08-07 10:25] VITALS: BP 118/81
== END 2017-08-07 14:30 | disposition home or self-care (01) | DRG 766 ==
LOC: LDRP 13:45
PROVIDERS: ADMIT Obstetrics & Gynecology; ATTEND Obstetrics & Gynecology
PROC: 10D00Z1 Extraction of Products of Conception, Low, Open Approach (ICD-10-PCS; principal; 2017-08-05 18:13)
DX: O41.03X0 Oligohydramnios, third trimester, not applicable or unspecified (principal); O34.211 Maternal care for low transverse scar from previous cesarean delivery; Z3A.37 37 weeks gestation of pregnancy; Z37.0 Single live birth
CPT/HCPCS: 36415; 85007; 85027; 86850; 86900; 86901; 87081; 94664

== ENCOUNTER 2017-12-06 15:44 | Emergency (ER) | payer MEDICAID ==
[~2017-12-06] VITALS: Ht 160 cm; Wt 78.9 kg
[~2017-12-06 15:44] MED LIST changes: +DOCU100C37 PO; +IBUP-1780 PO; +OXYC-465 PO
--- OUTSIDE RECORDS SUMMARY | 2017-12-06 15:51 | XMS REPORT | Continuity of Care Document ---
Author Author [facility] Address Unknown Phone Unavailable Allergies Active Description Code Type Severity Reaction Onset Reported/Identified Relationship to Patient Clinical Status Yes cefaclor [id number] Drug Allergy Moderate HIVES 08/24/2007 Yes Ceclor Drug Allergy N/A N/A 01/13/2011 Medications Medication Packaging Start Date Stop Date Route Dosage Sig PNV Plus Multivitamin 27-1 MG Oral Tablet Tablet 03/09/2017 Tablet Problems Date Dx Coded Attending Type Code Diagnosis Diagnosed By 04/09/2008 SHALINI WATKINS APRN 724.2 PAIN LOW BACK 04/09/2008 SHALINI WATKINS APRN R V25.40 CONTRACEPTIVE SURVEILLANCE UNSPECIFIED 04/09/2008 SHALINI WATKINS APRN R V25.49 SURVEILLANCE OF OTHER CONTRACEPTIVE METHOD 01/13/2011 SHALINI WATKINS APRN R V72.31 PARACHUTE PANEL JOINER EXAM, ROUTINE 01/13/2011 SHALINI WATKINS APRN R V74.5 STD SCREEN 04/13/2012 SHALINI WATKINS APRN R 706.2 SEBACEOUS CYST 04/13/2012 SHALINI WATKINS APRN R V26.9 PROCREATIVE MANAGEMENT 04/27/2012 SHALINI WATKINS APRN R 305.1 TOBACCO ABUSE 04/27/2012 SHALINI WATKINS APRN R 724.5 BACKACHE UNSPECIFIED 04/27/2012 SHALINI WATKINS APRN R 737.30 SCOLIOSIS (AND KYPHOSCOLIOSIS) IDIOPATHIC 04/27/2012 SHALINI WATKINS APRN R 786.05 SHORTNESS OF BREATH 04/27/2012 SHALINI WATKINS APRN R V65.42 COUNSELING - SMOKING CESSATION 07/24/2013 MOISES ROLLINS, LYNDA Mckinley Ot 644.03 THRT YASH LABOR-ANTEPART 07/24/2013 MOISES ROLLINS, LYNDA Mckinley Ot V04.81 ND FOR PROPHYLACTIC VACCIN AND INOCULATI 07/24/2013 MOISES ROLLINS, LYNDA Mckinley Ot V06.1 [id number], COMBINED [ 09/17/2013 LYNDA DE LEON MD, Ot 644.03 THRT YASH LABOR-ANTEPART 09/30/2013 LYNDA DE LEON MD, Ot 644.03 THRT YASH LABOR-ANTEPART 10/20/2013 LYNDA DE LEON MD, Ot 654.21 PREV DELIVRY W/ OR W/O MENT ANT 10/20/2013 LYNDA DE LEON MD, Ot V27.0 DELIVER-SINGLE LIVEBORN 11/08/2013 SHALINI WATKINS APRN R 780.2 SYNCOPE AND COLLAPSE 11/08/2013 SHALINI WATKINS APRN R 780.4 DIZZINESS AND VERTIGO 11/13/2014 Ot 305.70 AMPHETAMINE ABUSE-UNSPEC 11/13/2014 Ot 535.51 UNSPEC GASTRITIS GASTRODUODENITIS, W/ 11/13/2014 Ot 787.01 NAUSEA WITH VOMITING 06/07/2017 Working Z23 Encounter for immunization KaiacarolannBrian 07/01/2017 MARY AMEZCUA DO Ot M54.5 LOW BACK PAIN 07/01/2017 MARY AMEZCUA DO Ot O99.89 OTH DISEASES AND CONDITIONS COMPL PREG/C 07/01/2017 MARY AMEZCUA DO, Ot Z3A.32 32 WEEKS GESTATION OF 07/20/2017 LYNDA DE LEON MD Ot 654.23 PREV DELIVERY, ANTEPARTUM COND 07/20/2017 LYNDA DE LEON MD, Ot V72.63 PRE-PROCEDURAL LABORATORY EXAMINATION 07/20/2017 LYNDA DE LEON MD, Ot V74.8 SCREEN-BACTERIAL DIS NEC 07/20/2017 ALMA WEEKS DO Ot 285.9 ANEMIA NOS 07/20/2017 LYNDA DE LEON MD, Ot E86.0 DEHYDRATION 07/20/2017 LYNDA DE LEON MD, Ot O41.03X0 OLIGOHYDRAMNIOS, THIRD TRIMESTER, NOT AP 07/20/2017 LYNDA DE LEON MD, Ot Z3A.35 35 WEEKS GESTATION OF 07/21/2017 LYNDA DE LEON MD, Ot A08.4 VIRAL INTESTINAL INFECTION, UNSPECIFIED 07/21/2017 LYNDA DE LEON MD, Ot O98.513 OTHER VIRAL DISEASES COMPLICATING PREGNA 07/21/2017 LYNDA DE LEON MD, Ot Z3A.35 35 WEEKS GESTATION OF 07/25/2017 LYNDA DE LEON MD, Ot E86.0 DEHYDRATION 07/25/2017 LYNDA DE LEON MD, Ot O41.03X0 OLIGOHYDRAMNIOS, THIRD TRIMESTER, NOT AP 07/25/2017 LYNDA DE LEON MD, Ot Z3A.35 35 WEEKS GESTATION OF 07/26/2017 LYNDA DE LEON MD, Ot A08.4 VIRAL INTESTINAL INFECTION, UNSPECIFIED 07/26/2017 LYNDA DE LEON MD, Ot O98.513 OTHER VIRAL DISEASES COMPLICATING PREGNA 07/26/2017 LYNDA DE LEON MD, Ot ZCarol.35 35 WEEKS GESTATION OF 07/28/2017 LYNDA DE LEON MD, Ot O47.03 FALSE LABOR BEFORE 37 COMPLETED WEEKS OF 07/28/2017 LYNDA DE LEON MD, Ot Z3A.36 36 WEEKS GESTATION OF 08/03/2017 LYNDA DE LEON MD, Ot O47.03 FALSE LABOR BEFORE 37 COMPLETED WEEKS OF 08/03/2017 LYNDA DE LEON MD, Ot Z3A.36 36 WEEKS GESTATION OF 08/07/2017 LYNDA DE LEON MD, Ot O34.211 MATERN CARE FOR LOW TRANSVERSE SCAR FROM 08/07/2017 LYNDA DE LEON MD, Ot O41.03X0 OLIGOHYDRAMNIOS, THIRD TRIMESTER, NOT AP 08/07/2017 LYNDA DE LEON MD, Ot Z37.0 SINGLE LIVE 08/07/2017 LYNDA DE LEON MD, Ot ZCarol.37 37 WEEKS GESTATION OF Procedures Code Description Performed By Performed On 74.1 LOW CERVICAL 10/19/2013 24943 ROUTINE VENIPUNCTURE 11/08/2013 84624 EKG, TRACING 11/08/2013 96276 URINE DRUG SCREEN (IN-HOUSE ) 11/08/2013 75008 UA W/ CULTURE IF INDICATED 11/08/2013 71872 CBC 11/08/2013 9828206 GFR CALC (RESULT ONLY) 11/08/2013 69753 CMP 11/08/2013 56673 CULTURE URINE 11/09/2013 10717 Immunization Admin with counseling Brian Cano 06/07/2017 81107 Immunization Adm Single Vaccine Brian Cano 06/07/2017 35453 Influenza vaccine, quad, IM , 3yr T > Brian Cano 06/07/2017 68272 Tdap, 7 Yrs & Older Brian Cano 06/07/2017 [id number] EXTRACTION OF POC, LOW CERVICAL, OPEN AP 08/05/2017 Results Test Result Range CBC WITH PLATELET AND DIFFERENTIAL - 12/19/16 12:19 SEGS 54.9 % NRG *BASOPHILS 0.8 % NRG *EOSINOPHILS 2.6 % NRG AUTOMATED DIFF PERFORMED NRG *LYMPHOCYTES 31.3 % NRG *MONOCYTES 10.4 % NRG *ABSOLUTE BASOPHILS 0.10 10*3/uL 0.00-0.20 *ABSOLUTE EOSINOPHILS 0.30 10*3/uL 0.00-0.50 *ABSOLUTE LYMPHOCYTES 3.10 10*3/uL 1.00-3.00 *ABSOLUTE MONOCYTES 1.00 10*3/uL 0.30-1.00 *ABSOLUTE NEUTROPHILS 5.50 10*3/uL 1.80-7.80 MPV 7.7 fL 7.4-10.4 PLATELETS 282 10*3/uL 159-386 WBC 10.0 10*3/uL 3.6-11.2 RBC 4.82 3.63-4.92 HEMOGLOBIN 13.6 11.0-14.3 HEMATOCRIT 40.6 % 31.2-41.9 MCV 84.2 fL 79.0-98.0 MCH 28.2 pg 27.0-33.0 MCHC 33.5 32.0-36.0 RDW 14.2 % 12.3-17.0 RDWSD 42.4 37.1-47.8 TEST - 12/19/16 12:19 TEST POSITIVE NEGATIVE COMPREHENSIVE METABOLIC PANEL - 12/19/16 12:19 BILIFUBIN TOTAL 0.60 0.20-1.00 TOTAL PROTEIN 6.9 6.4-8.2 ALBUMIN 3.6 3.4-5.0 *GLOBULIN 3.3 2.3-3.5 *A/G RATIO 1.1 1.5-2.2 ALK PHOS 55 U/L 46-116 ALT (SGPT) 16 U/L 16-63 AST (SGOT) 12 U/L 15-37 GFR ESTIMATION - 12/19/16 12:19 *GFR EST NON AFR NEW ZEALANDER >90 mL/min NRG *GRFA EST AFR AMER >90 mL/min NRG CBC WITH PLATELET AND DIFFERENTIAL - 12/24/16 20:54 SEGS 58.6 % NRG *BASOPHILS 0.8 % NRG *EOSINOPHILS 2.0 % NRG AUTOMATED DIFF PERFORMED NRG *LYMPHOCYTES 31.0 % NRG *MONOCYTES 7.6 % NRG *ABSOLUTE BASOPHILS 0.10 10*3/uL 0.00-0.20 *ABSOLUTE EOSINOPHILS 0.30 10*3/uL 0.00-0.50 *ABSOLUTE LYMPHOCYTES 4.70 10*3/uL 1.00-3.00 *ABSOLUTE MONOCYTES 1.20 10*3/uL 0.30-1.00 *ABSOLUTE NEUTROPHILS 8.90 10*3/uL 1.80-7.80 MPV 7.7 fL 7.4-10.4 PLATELETS 284 10*3/uL 159-386 WBC 15.2 10*3/uL 3.6-11.2 RBC 4.77 3.63-4.92 HEMOGLOBIN 13.2 11.0-14.3 HEMATOCRIT 40.4 % 31.2-41.9 MCV 84.9 fL 79.0-98.0 MCH 27.7 pg 27.0-33.0 MCHC 32.7 32.0-36.0 RDW 14.3 % 12.3-17.0 RDWSD 42.4 37.1-47.8 COMPREHENSIVE METABOLIC PANEL - 12/24/16 20:54 BILIFUBIN TOTAL 0.20 0.20-1.00 TOTAL PROTEIN 6.9 6.4-8.2 ALBUMIN 3.6 3.4-5.0 *GLOBULIN 3.3 2.3-3.5 *A/G RATIO 1.1 1.5-2.2 ALK PHOS 55 U/L 46-116 ALT (SGPT) 14 U/L 16-63 AST (SGOT) 11 U/L 15- GFR ESTIMATION - 12/24/16 20:54 *GFR EST NON AFR NEW ZEALANDER >90 mL/min NRG *GRFA EST AFR AMER >90 mL/min NRG LIPASE - 12/24/16 20:54 LIPASE 119 U/L 73-393 HCG QUANT - 12/24/16 20:54 HCG QUANT 51975 0-6 RH TYPE - 12/24/16 21:13 RH TYPE POS NRG URINALYSIS (CULTURE PRN) - 12/24/16 21:15 *URINE APPEARANCE CLEAR CLEAR *URINE BILIRUBIN NEGATIVE NEGATIVE *URINE BLOOD NEGATIVE NEGATIVE *URINE GLUCOSE NEGATIVE NEGATIVE *URINE KETONES NEGATIVE NEGATIVE *URINE LEUKOCYTES NEGATIVE NEGATIVE *URINE NITRITES POSITIVE NEGATIVE URINE PH 7.0 5.0-8.0 *URINE PROTEIN NEGATIVE NEGATIVE URINE SPECIFIC GRAVITY 1.020 <=1.005->=1.030 *URINE UROBILINOGEN 0.2 0.2-1.0 *URINE COLOR STRAW STRAW/YELL/DK YELL URINE MICROSCOPIC - 12/24/16 21:15 WBC 0-1 /[HPF] 0-5 MICROSCOPIC EXAM PERFORMED PERFORMED NRG SQUAMOUS EP. CELLS FEW /[LPF] NEG-FEW BACTERIA MANY /[HPF] NEGATIVE CULTURE URINE - 12/24/16 21:15 CULTURE URINE >100,000 cfu/ml NRG ISOLATE1 - 12/24/16 21:15 ORGANISM Escherichia coli NRG Ampicillin <=2 NRG Ampicillin/sulbactam <=2 NRG Cefazolin <=4 NRG Cefepime <=1 NRG Ceftazidime <=1 NRG Ceftriaxone <=1 NRG Ertapenem <=0.5 NRG ESBL Neg NRG Gentamicin <=1 NRG Levofloxacin <=0.12 NRG Meropenem <=0.25 NRG Nitrofurantoin <=16 NRG Piperacillin/tazobactam <=4 NRG Tobramycin <=1 NRG Trimethoprim/Sulfa <=20 NRG Aztreonam <=1 NRG CULTURE-GC PROFILE - 12/24/16 23:45 CULTURE GC PROFILE No Neisseria gonorrhoeae isolated NRG CHLAMYDIA DNA PROBE - 12/24/16 23:45 CHLAMYDIA DNA PROBE Negative Negative URINALYSIS (CULTURE PRN) - 01/12/17 10:15 *URINE APPEARANCE SL CLOUDY CLEAR *URINE BILIRUBIN NEGATIVE NEGATIVE *URINE BLOOD NEGATIVE NEGATIVE *URINE GLUCOSE NEGATIVE NEGATIVE *URINE KETONES NEGATIVE NEGATIVE *URINE LEUKOCYTES TRACE NEGATIVE *URINE NITRITES POSITIVE NEGATIVE URINE PH 6.0 5.0-8.0 *URINE PROTEIN NEGATIVE NEGATIVE URINE SPECIFIC GRAVITY 1.020 <=1.005->=1.030 *URINE UROBILINOGEN 0.2 0.2-1.0 *URINE COLOR YELLOW STRAW/YELL/DK YELL URINE MICROSCOPIC - 01/12/17 10:15 WBC 25-50 /[HPF] 0-5 MUCOUS THREADS FEW /[LPF] NEGATIVE MICROSCOPIC EXAM PERFORMED PERFORMED NRG SQUAMOUS EP. CELLS FEW /[LPF] NEG-FEW BACTERIA FEW /[HPF] NEGATIVE CULTURE URINE - 01/12/17 10:15 CULTURE URINE >100,000 cfu/ml NRG ISOLATE1 - 01/12/17 10:15 ORGANISM Escherichia coli NRG Ampicillin <=2 NRG Ampicillin/sulbactam <=2 NRG Cefazolin <=4 NRG Cefepime <=1 NRG Ceftazidime <=1 NRG Ceftriaxone <=1 NRG Ertapenem <=0.5 NRG ESBL Neg NRG Gentamicin <=1 NRG Levofloxacin <=0.12 NRG Meropenem <=0.25 NRG Nitrofurantoin <=16 NRG Piperacillin/tazobactam <=4 NRG Tobramycin <=1 NRG Trimethoprim/Sulfa <=20 NRG Aztreonam <=1 NRG CULTURE-GC PROFILE - 01/12/17 10:45 CULTURE GC PROFILE No Neisseria gonorrhoeae isolated NRG CHLAMYDIA DNA PROBE - 01/12/17 10:45 CHLAMYDIA DNA PROBE Negative Negative Complete blood count (CBC) with automated white blood cell (WBC) differential - 07/20/17 12:26 Blood leukocytes automated count (number/volume) 17.2 10*3/uL 4.3-11.0 Blood erythrocytes automated count (number/volume) 4.07 10*6/uL 4.35-5.85 Venous blood hemoglobin measurement (mass/volume) 11.4 g/dL 11.5-16.0 Blood hematocrit (volume fraction) 34 % 35-52 Automated erythrocyte mean corpuscular volume 83 [foz_us] 80-99 Automated erythrocyte mean corpuscular hemoglobin (mass per erythrocyte) 28 pg 25-34 Automated erythrocyte mean corpuscular hemoglobin concentration measurement ( mass/volume) 34 g/dL 32-36 Automated erythrocyte distribution width ratio 13.9 % 10.0-14.5 Automated blood platelet count (count/volume) 365 10*3/uL 130-400 Automated blood platelet mean volume measurement 9.2 [foz_us] 7.4-10.4 Automated blood neutrophils/100 leukocytes 67 % 42-75 Automated blood lymphocytes/100 leukocytes 22 % 12-44 Blood monocytes/100 leukocytes 10 % 0-12 Automated blood eosinophils/100 leukocytes 1 % 0-10 Automated blood basophils/100 leukocytes 0 % 0-10 Blood neutrophils automated count (number/volume) 11.4 10*3 1.8-7.8 Blood lymphocytes automated count (number/volume) 3.7 10*3 1.0-4.0 Blood monocytes automated count (number/volume) 1.8 10*3 0.0-1.0 Automated eosinophil count 0.2 10*3/uL 0.0-0.3 Automated blood basophil count (count/volume) 0.0 10*3/uL 0.0-0.1 Blood manual differential performed detection - 07/20/17 12:26 Blood monocytes/100 leukocytes 9 % NRG Manual blood segmented neutrophils/100 leukocytes 67 % NRG Blood band neutrophils/100 leukocytes 1 % NRG Manual blood lymphocytes/100 leukocytes 21 % NRG Manual eosinophils/100 leukocytes in nose 2 % NRG Blood type T Indirect antibody screen panel - 07/20/17 12:26 ABO+Rh group AP NRG Transfusion band number [id number] NRG Blood group antibody screen NEGATIVE NRG Complete blood count (CBC) with automated white blood cell (WBC) differential - 07/21/17 03:00 Blood leukocytes automated count (number/volume) 18.3 10*3/uL 4.3-11.0 Blood erythrocytes automated count (number/volume) 3.61 10*6/uL 4.35-5.85 Venous blood hemoglobin measurement (mass/volume) 9.9 g/dL 11.5-16.0 Blood hematocrit (volume fraction) 30 % 35-52 Automated erythrocyte mean corpuscular volume 84 [foz_us] 80-99 Automated erythrocyte mean corpuscular hemoglobin (mass per erythrocyte) 27 pg 25-34 Automated erythrocyte mean corpuscular hemoglobin concentration measurement ( mass/volume) 33 g/dL 32-36 Automated erythrocyte distribution width ratio 13.7 % 10.0-14.5 Automated blood platelet count (count/volume) 355 10*3/uL 130-400 Automated blood platelet mean volume measurement 9.4 [foz_us] 7.4-10.4 Automated blood neutrophils/100 leukocytes 64 % 42-75 Automated blood lymphocytes/100 leukocytes 22 % 12-44 Blood monocytes/100 leukocytes 12 % 0-12 Automated blood eosinophils/100 leukocytes 1 % 0-10 Automated blood basophils/100 leukocytes 0 % 0-10 Blood neutrophils automated count (number/volume) 11.8 10*3 1.8-7.8 Blood lymphocytes automated count (number/volume) 4.1 10*3 1.0-4.0 Blood monocytes automated count (number/volume) 2.1 10*3 0.0-1.0 Automated eosinophil count 0.3 10*3/uL 0.0-0.3 Automated blood basophil count (count/volume) 0.0 10*3/uL 0.0-0.1 Comprehensive metabolic panel - 07/21/17 03:00 Serum or plasma sodium measurement (moles/volume) 138 mmol/L 135-145 Serum or plasma potassium measurement (moles/volume) 3.5 mmol/L 3.6-5.0 Serum or plasma chloride measurement (moles/volume) 106 mmol/L 98-107 Carbon dioxide 23 mmol/L 21-32 Serum or plasma anion gap determination (moles/volume) 9 mmol/L 5-14 Serum or plasma urea nitrogen measurement (mass/volume) 4 mg/dL 7-18 Serum or plasma creatinine measurement (mass/volume) 0.56 mg/dL 0.60-1.30 Serum or plasma urea nitrogen/creatinine mass ratio 7 NRG Serum or plasma creatinine measurement with calculation of estimated glomerular filtration rate > NRG Serum or plasma glucose measurement (mass/volume) 93 mg/dL 70-105 Serum or plasma calcium measurement (mass/volume) 8.8 mg/dL 8.5-10.1 Serum or plasma total bilirubin measurement (mass/volume) 0.2 mg/dL 0.1-1.0 Serum or plasma alkaline phosphatase measurement (enzymatic activity/volume) 133 U/L 40-136 Serum or plasma aspartate aminotransferase measurement (enzymatic activity/ volume) 9 U/L 5-34 Serum or plasma alanine aminotransferase measurement (enzymatic activity/volume ) 6 U/L 0-55 Serum or plasma protein measurement (mass/volume) 5.3 g/dL 6.4-8.2 Serum or plasma albumin measurement (mass/volume) 2.7 g/dL 3.2-4.5 Blood manual differential performed detection - 07/21/17 03:00 Blood monocytes/100 leukocytes 7 % NRG Manual blood segmented neutrophils/100 leukocytes 74 % NRG Blood band neutrophils/100 leukocytes 2 % NRG Manual blood lymphocytes/100 leukocytes 16 % NRG Manual eosinophils/100 leukocytes in nose 1 % NRG Blood hypochromia detection by light microscopy SLIGHT NRG Complete urinalysis with reflex to culture - 07/21/17 03:05 Urine color determination YELLOW NRG Urine clarity determination VERY CLOUDY NRG Urine pH measurement by test strip 8 5-9 Specific gravity of urine by test strip 1.015 1.016- 1.022 Urine protein assay by test strip, semi-quantitative NEGATIVE NEGATIVE Urine glucose detection by automated test strip NEGATIVE NEGATIVE Erythrocytes detection in urine sediment by light microscopy 1+ NEGATIVE Urine ketones detection by automated test strip NEGATIVE NEGATIVE Urine nitrite detection by test strip NEGATIVE NEGATIVE Urine total bilirubin detection by test strip NEGATIVE NEGATIVE Urine urobilinogen measurement by automated test strip (mass/volume) NORMAL NORMAL Urine leukocyte esterase detection by dipstick 1+ NEGATIVE Automated urine sediment erythrocyte count by microscopy (number/high power field) [HPF] NRG Automated urine sediment leukocyte count by microscopy (number/high power field ) [HPF] NRG Bacteria detection in urine sediment by light microscopy TRACE NRG Squamous epithelial cells detection in urine sediment by light microscopy 2-5 NRG Crystals detection in urine sediment by light microscopy PRESENT NRG Casts detection in urine sediment by light microscopy NONE NRG Mucus detection in urine sediment by light microscopy NEGATIVE NRG Complete urinalysis with reflex to culture YES NRG Amorphous sediment detection in urine sediment by light microscopy MOD DAVID PHOSPHATE NRG Bacterial urine culture - 07/21/17 03:05 Bacterial urine culture NG NRG Complete blood count (CBC) with automated white blood cell (WBC) differential - 08/05/17 14:00 Blood leukocytes automated count (number/volume) 18.2 10*3/uL 4.3-11.0 Blood erythrocytes automated count (number/volume) 4.36 10*6/uL 4.35-5.85 Venous blood hemoglobin measurement (mass/volume) 11.9 g/dL 11.5-16.0 Blood hematocrit (volume fraction) 36 % 35-52 Automated erythrocyte mean corpuscular volume 83 [foz_us] 80-99 Automated erythrocyte mean corpuscular hemoglobin (mass per erythrocyte) 27 pg 25-34 Automated erythrocyte mean corpuscular hemoglobin concentration measurement ( mass/volume) 33 g/dL 32-36 Automated erythrocyte distribution width ratio 14.0 % 10.0-14.5 Automated blood platelet count (count/volume) 366 10*3/uL 130-400 Automated blood platelet mean volume measurement 10.3 [foz_us] 7.4-10.4 Automated blood neutrophils/100 leukocytes 70 % 42-75 Automated blood lymphocytes/100 leukocytes 20 % 12-44 Blood monocytes/100 leukocytes 9 % 0-12 Automated blood eosinophils/100 leukocytes 1 % 0-10 Automated blood basophils/100 leukocytes 0 % 0-10 Blood neutrophils automated count (number/volume) 12.7 10*3 1.8-7.8 Blood lymphocytes automated count (number/volume) 3.6 10*3 1.0-4.0 Blood monocytes automated count (number/volume) 1.7 10*3 0.0-1.0 Automated eosinophil count 0.2 10*3/uL 0.0-0.3 Automated blood basophil count (count/volume) 0.0 10*3/uL 0.0-0.1 Blood manual differential performed detection - 08/05/17 14:00 Blood monocytes/100 leukocytes 8 % NRG Manual blood segmented neutrophils/100 leukocytes 70 % NRG Blood band neutrophils/100 leukocytes 0 % NRG Manual blood lymphocytes/100 leukocytes 12 % NRG Manual eosinophils/100 leukocytes in nose 2 % NRG Manual blood basophils/100 leukocytes 0 % NRG Blood lymphocytes variant/100 leukocytes 8 % NRG Blood erythrocyte morphology finding identification NORMAL NRG Blood type T Indirect antibody screen panel - 08/05/17 14:00 ABO+Rh group AP NRG Transfusion band number [id number] NRG Blood group antibody screen NEGATIVE NRG Methicillin resistant Staphylococcus aureus (MRSA) screening culture - 14:25 Methicillin resistant Staphylococcus aureus (MRSA) screening culture NEG NRG Encounters ACCT No. Visit Date/Time Discharge Status Pt. Type Provider Facility Loc./Unit Complaint [id number] 11/08/2013 10:56:00 11/08/2013 23:59:59 CLS Outpatient SHALINI WATKINS APRN [id number] 08/05/2017 13:45:00 08/07/2017 14:30:00 DIS Inpatient LYNDA DE LEON MD [facility] LDRP PREVIOUS SECTION [id number] 07/28/2017 13:08:00 07/28/2017 14:05:00 DIS Outpatient LYNDA DE LEON MD [facility] WSo CONTRACTIONS [id number] 07/21/2017 02:27:00 07/21/2017 08:05:00 DIS Outpatient LYNDA DE LEON MD [facility] WSo VOMITING [id number] 07/20/2017 12:08:00 07/20/2017 17:15:00 [facility] AR[facility] BABY [id number] 07/01/2017 14:03:00 07/01/2017 15:40:00 DIS Outpatient MARY AMEZCUA DO [facility] WSo CONTRACTIONS [id number] 01/30/2014 10:55:00 01/30/2014 23:59:59 CLS Outpatient GELALMA FOSTER DO [facility] LAB ANEMIA [id number] 10/18/2013 23:40:00 10/20/2013 13:15:00 DIS Inpatient LYNDA DE LEON MD [facility] WS LABOR [id number] 10/16/2013 07:17:00 10/16/2013 23:59:59 CLS Outpatient LYNDA DE LEON MD [facility] PREOP PREVIOUS SECTION [id number] 09/30/2013 10:53:00 09/30/2013 14:00:00 DIS Outpatient LYNDA DE LEON MD [facility] WSo VOMITING DIARRHEA [id number] 09/17/2013 16:20:00 09/17/2013 16:24:00 DIS Outpatient LYNDA DE LEON MD [facility] WSo CONTRACTIONS [id number] 07/24/2013 10:51:00 07/24/2013 12:25:00 DIS Outpatient [facility] LE[facility],ABD PAIN [id number] 05/03/2013 08:09:00 05/03/2013 11:00:00 DIS Emergency [id number] 11/13/2014 22:01:00 Document Registration [id number] 06/07/2017 11:43:45 Document Registration [id number] 04/26/2017 09:03:47 ACT Outpatient [facility] 1 [id number] 04/26/2017 09:03:26 ACT Outpatient [facility] 1 2201 [id number] 04/25/2017 15:20:34 Document Registration [id number] 06/06/2017 10:21:00 06/06/2017 23:54:35 DIS Emergency JIMBO BILLY TOOTH PAIN [id number] 01/12/2017 10:04:00 01/12/2017 23:50:42 DIS Emergency DAVID HARRELL 9 WKS PREG. BLEEDING [id number] 12/24/2016 20:10:00 12/25/2016 03:33:46 DIS Emergency ALMA ROY L VAGINAL BLEEDING [id number] 12/19/2016 11:48:00 12/20/2016 01:37:32 DIS Emergency DAVID HARRELL RIGHT SIDE PAIN [id number] 03/14/2016 12:47:00 03/14/2016 17:28:50 DIS Emergency DAVID HARRELL SCHOLIOSIS/BACK PAIN, NAUSEA [id number] 10/06/2017 13:00:00 10/06/2017 23:59:59 [facility] Outpatient RICKEY VALDIVIA APRN [id number] 01/13/2017 07:39:01 ACT Document Registration
[2017-12-06] MEDS ORDERED: KETOROLAC 30 MG/ML VIAL IVP ONE (16:30)
[2017-12-06 16:45] LABS: BASOPHILS % (AUTO) 0 % (0-10); EOSINOPHILS # (AUTO) 0.3 10^3/uL (0.0-0.3); EOSINOPHILS % (AUTO) 3 % (0-10); HEMATOCRIT 40 % (35-52); HEMOGLOBIN 13.2 G/DL (11.5-16.0); LYMPHOCYTES # (AUTO) 3.3 X 10^3 (1.0-4.0); LYMPHOCYTES % (AUTO) 33 % (12-44); MEAN CORPUSCULAR HEMOGLOBIN 27 PG (25-34); MEAN CORPUSCULAR HGB CONC 33 G/DL (32-36); MEAN CORPUSCULAR VOLUME 82 FL (80-99); MEAN PLATELET VOLUME 9.8 FL (7.4-10.4); MONOCYTES # (AUTO) 0.6 X 10^3 (0.0-1.0); MONOCYTES % (AUTO) 6 % (0-12); NEUTROPHILS # (AUTO) 5.7 X 10^3 (1.8-7.8); NEUTROPHILS % (AUTO) 57 % (42-75); PLATELET COUNT 360 10^3/uL (130-400); RED BLOOD COUNT 4.92 10^6/uL (4.35-5.85); RED CELL DISTRIBUTION WIDTH 13.9 % (10.0-14.5)
[2017-12-06 16:55] LABS: ALANINE AMINOTRANSFERASE 18 U/L (0-55); ALBUMIN 4.2 GM/DL (3.2-4.5); ALKALINE PHOSPHATASE 81 U/L (40-136); BILIRUBIN,TOTAL 0.2 MG/DL (0.1-1.0); BUN/CREATININE RATIO 11; CALCIUM 9.5 MG/DL (8.5-10.1); CARBON DIOXIDE 30 MMOL/L (21-32); CHLORIDE 107 MMOL/L (98-107); CREATININE SERUM 0.75 MG/DL (0.60-1.30); GFR ESTIMATED > 60; GLUCOSE 94 MG/DL (70-105); POTASSIUM 3.6 MMOL/L (3.6-5.0); SODIUM 141 MMOL/L (135-145)
[2017-12-06 17:15] LABS: BILIRUBIN,URINE NEGATIVE (NEGATIVE); CLARITY,URINE CLEAR; COLOR,URINE YELLOW; GLUCOSE, URINE (UA) NEGATIVE (NEGATIVE); KETONES,URINE NEGATIVE (NEGATIVE); LEUKOCYTE ESTERASE ,URINE NEGATIVE (NEGATIVE); NITRITE,URINE NEGATIVE (NEGATIVE); PH,URINE 7 (5-9); PROTEIN,URINE NEGATIVE (NEGATIVE); UROBILINOGEN,URINE NORMAL (NORMAL)
[2017-12-06 17:26] LABS: BACTERIA,URINE TRACE /HPF; RBC,URINE 0-2 /HPF; SQUAMOUS EPITHELIAL CELL,UR 0-2 /HPF; WBC,URINE RARE /HPF
--- NOTE | 2017-12-06 17:30 | ED Back Pain ---
General Chief Complaint: Back Problems Stated Complaint: BACK PAIN Nursing Triage Note: PT AMBULATED TO ED WITH MOTHER AND CHILD. PT C/O MID LOW BACK PAIN THAT HAS BEEN GOING ON FOR A MONTH. PT STATES SHE HAS BEEN TREATED FOR A KIDNEY INFECTIN, AND UTI IN THE LAST MONTH. PT ALSO STATES SHE IS CURRENTLY TAKING FLEXERIL AND IT IS NOT HELPING. PT STATES SHE DOES HAVE A HISTORY OF SCOLIOSIS. PT ALSO STATES SHE IS FEELING TIRED AND WEAK. DENIES ANY PAIN, NUMBNESS IN LEGS. DENIES PROBLEMS WITH BOWEL OR BLADDER. Nursing Sepsis Screen: No Definite Risk Source of Information: Patient Exam Limitations: No Limitations (MELISSA EDWARDS MD) History of Present Illness Date Seen by Provider: Dec 06, 2017 Time Seen by Provider: 16:24 Initial Comments This 32-year-old woman presents to the emergency room with complaints of mid lower back pain that is not being treated effectively with gabapentin and Flexeril as prescribed by her primary care provider. She also reports having bladder infection treated within the last 3 weeks. She reports feeling excessively tired and weak recently. Her last menstrual period was 3 days ago. She does have a history of scoliosis. She does not use NSAIDs for her back pain because of history of ulcers. (MELISSA EDWARDS MD) Allergies and Home Medications Allergies Coded Allergies: cefaclor (Verified Allergy, Intermediate, HIVES, 08/24/07) Home Medications Tramadol HCl 50 Mg Tablet, 50 MG PO Q6H PRN for PAIN-MODERATE TO SEVERE Prescribed by: MELISSA DAVIDSON on 12/06/17 5326 Patient Home Medication List Home Medication List Reviewed: Yes (MELISSA EDWARDS MD) Constitutional: see HPI EENTM: no symptoms reported Respiratory: no symptoms reported Cardiovascular: no symptoms reported Gastrointestinal: no symptoms reported Genitourinary: see HPI : No LMP: Dec 02, 2017 Musculoskeletal: see HPI Skin: no symptoms reported Psychiatric/Neurological: No Symptoms Reported (MELISSA EDWARDS MD) Past Reypyuk-Jjholi-Pggzzh Hx Patient Social History Alcohol Use: Denies Use Recreational Drug Use: No (chronic drug user of many kinds) Smoking Status: Current Everyday Smoker Type Used: Cigarettes 2nd Hand Smoke Exposure: Yes Recent Foreign Travel: No Contact w/Someone Who Travel: No Recent Infectious Disease Expo: No Recent Hopitalizations: Yes (SUICIDE ATTEMPT, ALCOHOL ABUSE) Physical Abuse: No Sexual Abuse: No (MELISSA EDWARDS MD) Immunizations Up To Date Tetanus Booster (TDap): Unknown Date of Influenza Vaccine: May 31, 2017 (MELISSA EDWARDS MD) Seasonal Allergies Seasonal Allergies: No (MELISSA EDWRADS MD) Past Medical History Surgeries: Yes (c section) Section, Tonsillectomy Respiratory: No Cardiac: No Neurological: No : No Last Menstrual Period: Dec 03, 2017 Reproductive Disorders: No UTI-Chronic Gastrointestinal: Yes Ulcer Musculoskeletal: Yes (SCOLIOSIS) Scoliosis Endocrine: No Cancer: No Psychosocial: Yes (SOCIAL PHOBIA) Depression Nursing Suicide Risk Score: 0 Integumentary: No Blood Disorders: No (MELISSA EDWARDS MD) Family Medical History Cancer of colon GRANDPARENTS Congestive heart failure GRANDPARENTS Family history: Arthritis GRANDPARENTS Family history: Cardiovascular disease GRANDPARENTS Family history: Diabetes mellitus GRANDPARENTS Family history: Hypertension GRANDPARENTS Myocardial infarction GRANDPARENTS Seizure disorder GRANDPARENTS Stroke GRANDPARENTS No Family History of: Abdominal aortic aneurysm Family history: Gastrointestinal disease Family history: Thyroid disorder Hereditary disease History of - anemia History of - respiratory disease No Pertinent Family Hx (MELISSA EDWARDS MD) Physical Exam Vital Signs Vital Signs - First Documented 12/06/17 15:45 Temp 97.9 Pulse 108 Resp 16 B/P (MAP) 114/77 (89) Pulse Ox 96 O2 Delivery Room Air (EDISON OTOOLE) Vital Signs Capillary Refill : Less Than 3 Seconds (MELISSA EDWARDS MD) General Appearance: No Apparent Distress, WD/WN, Obese HEENT: PERRL/EOMI, Normal ENT Inspection Neck: Normal Inspection Cardiovascular: Regular Rate, Rhythm, No Edema, No Murmur Respiratory: Lungs Clear, Normal Breath Sounds, No Accessory Muscle Use, No Respiratory Distress Gastrointestinal: Normal Bowel Sounds, Non Tender, Soft Extremity: Normal Inspection, No Pedal Edema Neurologic/Psychiatric: Alert, Oriented x3, No Motor/Sensory Deficits, Normal Mood/Affect, ventilating expert II-XII Norm as Tested Skin: Normal Color, Warm/Dry (MELISSA EDWARDS MD) Progress/Results/Core Measures Lab Results Laboratory Tests Test 12/06/17 16:01 12/06/17 16:10 Range/Units Urine Color YELLOW Urine Clarity CLEAR Urine pH 7 5-9 Urine Specific [place] 1.005 L 1.016-1.022 Urine Protein NEGATIVE NEGATIVE Urine Glucose (UA) NEGATIVE NEGATIVE Urine Ketones NEGATIVE NEGATIVE Urine Nitrite NEGATIVE NEGATIVE Urine Bilirubin NEGATIVE NEGATIVE Urine Urobilinogen NORMAL NORMAL MG/DL Urine Leukocyte Esterase NEGATIVE NEGATIVE Urine RBC (Auto) 5+ H NEGATIVE Urine RBC 0-2 /HPF Urine WBC RARE /HPF Urine Squamous Epithelial Cells 0-2 /HPF Urine Crystals NONE /LPF Urine Bacteria TRACE /HPF Urine Casts NONE /LPF Urine Mucus NEGATIVE /LPF Urine Culture Indicated NO Urine Opiates Screen NEGATIVE NEGATIVE Urine Oxycodone Screen NEGATIVE NEGATIVE Urine Methadone Screen NEGATIVE NEGATIVE Urine Propoxyphene Screen NEGATIVE NEGATIVE Urine Barbiturates Screen NEGATIVE NEGATIVE Ur Tricyclic Antidepressants Screen NEGATIVE NEGATIVE Urine Phencyclidine Screen NEGATIVE NEGATIVE Urine Amphetamines Screen NEGATIVE NEGATIVE Urine Methamphetamines Screen NEGATIVE NEGATIVE Urine Benzodiazepines Screen NEGATIVE NEGATIVE Urine Cocaine Screen NEGATIVE NEGATIVE Urine Cannabinoids Screen NEGATIVE NEGATIVE White Blood Count 10.0 4.3-11.0 10^3/uL Red Blood Count 4.92 4.35-5.85 10^6/uL Hemoglobin 13.2 11.5-16.0 G/DL Hematocrit 40 35-52 % Mean Corpuscular Volume 82 80-99 FL Mean Corpuscular Hemoglobin 27 25-34 PG Mean Corpuscular Hemoglobin Concent 33 32-36 G/DL Red Cell Distribution Width 13.9 10.0-14.5 % Platelet Count 360 130-400 10^3/uL Mean Platelet Volume 9.8 7.4-10.4 FL Neutrophils (%) (Auto) 57 42-75 % Lymphocytes (%) (Auto) 33 12-44 % Monocytes (%) (Auto) 6 0-12 % Eosinophils (%) (Auto) 3 0-10 % Basophils (%) (Auto) 0 0-10 % Neutrophils # (Auto) 5.7 1.8-7.8 X 10^3 Lymphocytes # (Auto) 3.3 1.0-4.0 X 10^3 Monocytes # (Auto) 0.6 0.0-1.0 X 10^3 Eosinophils # (Auto) 0.3 0.0-0.3 10^3/uL Basophils # (Auto) 0.0 0.0-0.1 10^3/uL Sodium Level 141 135-145 MMOL/L Potassium Level 3.6 3.6-5.0 MMOL/L Chloride Level 107 98-107 MMOL/L Carbon Dioxide Level 30 21-32 MMOL/L Anion Gap 4 L 5-14 MMOL/L Blood Urea Nitrogen 8 7-18 MG/DL Creatinine 0.75 0.60-1.30 MG/DL Estimat Glomerular Filtration Rate > 60 BUN/Creatinine Ratio 11 Glucose Level 94 70-105 MG/DL Calcium Level 9.5 8.5-10.1 MG/DL Total Bilirubin 0.2 0.1-1.0 MG/DL Aspartate Amino Transf (AST/SGOT) 15 5-34 U/L Alanine Aminotransferase (ALT/SGPT) 18 0-55 U/L Alkaline Phosphatase 81 40-136 U/L Total Protein 7.0 6.4-8.2 GM/DL Albumin 4.2 3.2-4.5 GM/DL TSH Sully Testing 0.30 L 0.35-4.94 UIU/ML Serum Test, Qualitative NEGATIVE NEGATIVE (EDISON OTOOLE) Medications Given in ED Current Medications Medications Dose Ordered Sig/Adrianne Route Start Time Stop Time Status Last Admin Dose Admin Ketorolac Tromethamine 15 mg ONCE ONCE IVP 12/06/17 16:30 12/06/17 16:31 DC 12/06/17 16:36 15 MG Tramadol HCl 50 mg ONCE ONCE PO 12/06/17 17:45 12/06/17 17:46 DC 12/06/17 17:46 50 MG (EDISON OTOOLE) Vital Signs/I&O 12/06/17 15:45 Temp 97.9 Pulse 108 Resp 16 B/P (MAP) 114/77 (89) Pulse Ox 96 O2 Delivery Room Air (EDISON OTOOLE) Blood Pressure Mean: 89 Progress Note : Progress Note Labs and urine were evaluated. Patient received Toradol for initial pain management but pain rebounded. Ultram was given for further treatment. (MELISSA EDWARDS MD) Progress Note : Progress Note 1812: Received report from Dr. Davidson regarding the patient having a free T4 labs still pending. He has already drawn up discharge instructions and discussed with the patient and given her a prescription for Ultram. She responded favorably to both NSAIDs and tramadol today in the ER. Of note the patient has a history of positive UDS for amphetamine, methamphetamine, cocaine , opiates and alcohol. She has a primary care provider relationship with Dr. Funk and would probably be appropriate for her to consider follow-up with him for nonpharmacologic as well as pharmacologic management of her chronic symptoms. (EDISON OTOOLE) Transfer of Care Time: 18:13 Care transferred to: Bryan (EDISON OTOOLE) Departure Impression Primary Impression: Lower back pain Qualified Codes: M54.5 - Low back pain Additional Impression: Fatigue Qualified Codes: R53.83 - Other fatigue Disposition: 01 HOME, SELF-CARE Condition: Improved Departure-Patient Inst. Decision time for Depature: 18:06 (MELISSA EDWARDS MD) Referrals: NO,LOCAL PHYSICIAN (PCP) Primary Care Physician Patient Instructions: Low Back Pain (DC) Add. Discharge Instructions: Drink plenty of clear liquids. You may take your gabapentin and Flexeril as prescribed. Add Tylenol (acetaminophen) and/or Ultram for pain not controlled by your other medications. Follow-up with Dr. Funk as soon as possible for further management of your pain. Non-medicine forms of pain management would also be appropriate including physical therapy, weight loss, gentle heat, etc. All discharge instructions reviewed with patient and/or family. Voiced understanding. Scripts Tramadol HCl (Ultram) 50 Mg Tablet 50 MG PO Q6H PRN for PAIN-MODERATE TO SEVERE, #15 TAB Prov: MELISSA EDWARDS MD 12/06/17 MELISSA EDWARDS MD Dec 06, 2017 17:30 EDISON OTOOLE Dec 06, 2017 18:17
[2017-12-06 17:51] LABS: AMPHETAMINE SCREEN, URINE NEGATIVE (NEGATIVE); BARBITURATE SCREEN URINE NEGATIVE (NEGATIVE); BENZODIAZEPINES SCREEN URINE NEGATIVE (NEGATIVE); CANNABINOID SCREEN, URINE NEGATIVE (NEGATIVE); COCAINE SCREEN URINE NEGATIVE (NEGATIVE); METHADONE STAT NEGATIVE (NEGATIVE); METHAMPHETAMINE SCREEN URINE S NEGATIVE (NEGATIVE); OPIATE SCREEN URINE NEGATIVE (NEGATIVE); OXYCODONE STAT NEGATIVE (NEGATIVE); PROPOXYPHENE STAT NEGATIVE (NEGATIVE); TRICYCLIC ANTIDEPRESSANTS SCRE NEGATIVE (NEGATIVE)
[2017-12-06] MEDS ORDERED: GABA-488 (18:00)
[2017-12-06] MEDS ORDERED: CYCL10TA9 (18:00)
[2017-12-06] MEDS ORDERED: TRAM-42 PO (18:08)
[2017-12-06 18:15] LABS: FREE T4 (FREE THYROXINE) 1.09 NG/DL (0.70-1.48)
[2017-12-06 18:36] VITALS: BP 103/96
== END 2017-12-06 18:36 | disposition home or self-care (01) ==
LOC: EDUNIT# 15:44 → ER 15:46
DX: M54.5 Low back pain (principal); R53.83 Other fatigue; F32.9 Major depressive disorder, single episode, unspecified; F17.210 Nicotine dependence, cigarettes, uncomplicated; Z87.440 Personal history of urinary (tract) infections; Z87.19 Personal history of other diseases of the digestive system; Z87.59 Personal history of other complications of pregnancy, childbirth and the puerperium; Z90.89 Acquired absence of other organs; Z91.5 Personal history of self-harm; Z88.1 Allergy status to other antibiotic agents
CPT/HCPCS: 36415; 80053; 80306; 81000; 84439; 84443; 84703; 85025; 96374

== ENCOUNTER 2018-02-08 10:03 | Emergency (ER) | payer MEDICAID ==
[~2018-02-08] VITALS: Ht 160 cm; Wt 77.1 kg
[~2018-02-08 10:03] MED LIST changes: +CYCL10TA9; +GABA-488; +TRAM-42 PO
--- OUTSIDE RECORDS SUMMARY | 2018-02-08 10:08 | XMS REPORT ---
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 Active 737748870 Problem Adderall use disorder, moderate, dependence F15.20 Active 98222039 Problem Posttraumatic stress disorder F43.10 Active 46507974 Problem Nondependent tobacco use disorder 305.1 Active 233624861 Problem Alcohol dependence in sustained full remission F10.21 Active 51772259 Problem Phencyclidine use disorder, moderate, in sustained remission, 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 Active 698204546 Problem Unspecified procreative management V26.9 Active Problem Shortness of breath 786.05 Active 024695725 Problem Dizziness and giddiness 780.4 Active 495271875 Problem Counseling on substance use and abuse V65.42 Active 399990204 Problem Syncope and collapse 780.2 Active 014190062 ALLERGIES No Information ENCOUNTERS Encounter Location Date Diagnosis [facility], [place] [id number] [place] [address] Jan, [facility] [address] [place] [address] Nov, 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 ; Alcohol dependence in sustained full remission F10.21 and Phencyclidine use disorder, moderate, in sustained remission, 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 [facility] [place] [id number] [place] [address] Oct, [facility] [place] [id number] [place] [address] Aug, Posttraumatic stress disorder F43.10 and 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 [facility] [address] [place] [address] Aug, 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 ; Alcohol dependence in sustained full remission F10.21 and Phencyclidine use disorder, moderate, in sustained remission, 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 [facility] [place] [id number] [place] [address] Aug, Posttraumatic stress disorder F43.10 and 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 [facility] [address] [place] [address] Jul, 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 ; Alcohol dependence in sustained full remission F10.21 and Phencyclidine use disorder, moderate, in sustained remission, 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 [facility] [place] [id number] [place] [address] Jul, [facility] [place] [address] [address] Jul, [facility] [address] [place] [address] Jul, 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 ; Alcohol dependence in sustained full remission F10.21 and Phencyclidine use disorder, moderate, in sustained remission, 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 [facility] [id number] [place] [id number] Jul, Dental examination Z01.20 [facility] [place] [id number] [place] [address] Jul, [facility] [place] [id number] [place] [address] Jul, Posttraumatic stress disorder F43.10 and Other stimulant dependence, uncomplicated F15.20 [facility] [id number] [place] [id number] Jun, Dental examination Z01.20 and Dental caries K02.9 [facility] [address] [place] [id number] Mar, Gastritis, presence of bleeding unspecified, unspecified chronicity, unspecified gastritis type K29.70 [facility] [place] [id number] [address] 22 Oct, 2015 Anxiety associated with depression F41.8 [facility] [place] [address] [address] 26 Aug, 2015 Anxiety associated with depression F41.8 [facility] [place] [address] [id number] [id number] 15 Jul, 2015 [facility] [address] [id number] [id number] 03 Apr, 2015 Dental examination V72.2 [facility] [place] [address] [address] 13 Nov, 2014 [facility] [place] [address] [address] 18 Oct, 2013 [facility] [place] [address] [address] 18 Oct, 2013 [facility] [place] [address] [address] 14 Oct, 2013 [facility] [place] [address] [address] 13 Oct, 2013 [facility] [place] [address] [address] 13 Oct, 2013 [facility] [place] [address] [address] 19 Apr, 2012 [facility] [place] [address] [address] 11 Apr, 2012 [facility], [place] [address] [address] 10 Apr, 2012 [facility] [place] [id number] [address] 09 Apr, 2012 [facility], [place] [address] [address] Mar, [facility] [place] [id number] [address] Mar, [facility], [place] [address] [address] Mar, [facility] [place] [address] [address] Mar, [facility] [place] [address] [address] Sep, [facility] [place] [id number] [address] Jun, [facility], [place] [address] [address] December, IMMUNIZATIONS No Known Immunizations SOCIAL HISTORY Never Assessed REASON FOR VISIT PRSUP Intake PLAN OF CARE VITAL SIGNS MEDICATIONS Unknown Medications RESULTS No Results PROCEDURES Procedure Date Ordered Result Body Site Alcohol and/or drug services Aug 12, 2017 INSTRUCTIONS MEDICATIONS ADMINISTERED No Known Medications
--- OUTSIDE RECORDS SUMMARY | 2018-02-08 10:08 | XMS REPORT ---
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 Active 948709813 Problem Adderall use disorder, moderate, dependence F15.20 Active 93035132 Problem Posttraumatic stress disorder F43.10 Active 23259980 Problem Nondependent tobacco use disorder 305.1 Active 978358170 Problem Alcohol dependence in sustained full remission F10.21 Active 84738548 Problem Phencyclidine use disorder, moderate, in sustained remission, 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 Active 116169067 Problem Unspecified procreative management V26.9 Active Problem Shortness of breath 786.05 Active 798030993 Problem Dizziness and giddiness 780.4 Active 955183321 Problem Counseling on substance use and abuse V65.42 Active 758066448 Problem Syncope and collapse 780.2 Active 899238822 ALLERGIES No Information ENCOUNTERS Encounter Location Date Diagnosis [facility] [address] [place] [address] Jan, [facility] [address] [place] [address] Nov, 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 ; Alcohol dependence in sustained full remission F10.21 and Phencyclidine use disorder, moderate, in sustained remission, 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 [facility] [address] [address] Oct, [facility] [id number] [place] [address] Aug, Posttraumatic stress disorder F43.10 and 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 [facility] [address] [place] [address] Aug, 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 ; Alcohol dependence in sustained full remission F10.21 and Phencyclidine use disorder, moderate, in sustained remission, 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 [facility] [id number] [place] [address] Aug, Posttraumatic stress disorder F43.10 and 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 [facility] [address] [place] [address] Jul, 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 ; Alcohol dependence in sustained full remission F10.21 and Phencyclidine use disorder, moderate, in sustained remission, 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 [facility] [id number] [place] [address] Jul, [facility] [id number] [place] [address] Jul, [facility] [address] [place] [address] Jul, 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 ; Alcohol dependence in sustained full remission F10.21 and Phencyclidine use disorder, moderate, in sustained remission, 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 [facility] [id number] [place] [id number] Jul, Dental examination Z01.20 [facility] [id number] [place] [address] Jul, [facility] [id number] [place] [address] Jul, Posttraumatic stress disorder F43.10 and Other stimulant dependence, uncomplicated F15.20 [facility] [id number] [place] [id number] Jun, Dental examination Z01.20 and Dental caries K02.9 [facility] [address] [id number] Mar, Gastritis, presence of bleeding unspecified, unspecified chronicity, unspecified gastritis type K29.70 [facility] [address] [address] 22 Oct, 2015 Anxiety associated with depression F41.8 [facility] [address] [address] 26 Aug, 2015 Anxiety associated with depression F41.8 [facility] [place] [address] [id number] [id number] 15 Jul, 2015 [facility] [address] [id number] [id number] 03 Apr, 2015 Dental examination V72.2 [facility] [address] [place] [address] 13 Nov, 2014 [facility] [address] [address] 18 Oct, 2013 [facility] [address] [address] 18 Oct, 2013 [facility] [address] [address] 14 Oct, 2013 [facility] [address] [address] 13 Oct, 2013 [facility] [address] [address] 13 Oct, 2013 [facility] [address] [address] 19 Apr, 2012 [facility] [address] [address] 11 Apr, 2012 [facility] [address] [address] 10 Apr, 2012 [facility] [address] [address] 0[address] 09 Apr, 2012 [facility] [address] [address] Mar, [facility] [id number] [address] 2310 Mar, [facility] [address] [address] Mar, [facility] [address] [address] Mar, [facility] [address] [address] Sep, [facility] [address] [address] Jun, [facility] [address] [address] December, IMMUNIZATIONS No Known Immunizations SOCIAL HISTORY Never Assessed REASON FOR VISIT ATS-Brief PLAN OF CARE VITAL SIGNS MEDICATIONS Unknown Medications RESULTS No Results PROCEDURES Procedure Date Ordered Result Body Site Alcohol and/or drug services Jul 29, 2017 INSTRUCTIONS MEDICATIONS ADMINISTERED No Known Medications
--- OUTSIDE RECORDS SUMMARY | 2018-02-08 10:08 | XMS REPORT ---
Author Author GABRIELLA RAMESH Organization 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 Active 101652600 Problem Adderall use disorder, moderate, dependence F15.20 Active 09243251 Problem Posttraumatic stress disorder F43.10 Active 99884082 Problem Nondependent tobacco use disorder 305.1 Active 731862076 Problem Alcohol dependence in sustained full remission F10.21 Active 78173672 Problem Phencyclidine use disorder, moderate, in sustained remission, 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 [address] [place] [address] Oct, 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 [id number] [place] [address] Jul, 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 [id number] [place] [address] Jul, [facility] [id number] [place] [address] 9945 Jul, Posttraumatic stress disorder F43.10 and Other stimulant dependence, uncomplicated F15.20 [facility] [id number] [place] [id number] Jun, Dental examination Z01.20 and Dental caries K02.9 [facility] [address] [place] [id number] Mar, Gastritis, presence of bleeding unspecified, unspecified chronicity, unspecified gastritis type K29.70 [facility] [id number] [address] 22 Oct, 2015 Anxiety associated with depression F41.8 [facility] [address] [address] 26 Aug, 2015 Anxiety associated with depression F41.8 [facility] [place] [address] [id number] [place] [id number] 15 Jul, 2015 [facility] [address] [id number] [id number] 03 Apr, [address] [facility] [address] [address] 13 Nov, 2014 [facility] [address] [address] 18 Oct, 2013 [facility] [address] [address] 18 Oct, 2013 [facility] [address] [address] 14 Oct, 2013 [facility] [address] [address] 13 Oct, 2013 [facility] [address] [address] 13 Oct, 2013 [facility] [address] [address] 19 Apr, 2012 [facility] [address], [place] [address] 2541 11 Apr, 2012 [facility] [address] [address] 10 Apr, 2012 [facility] [address] [id number] [address] 09 Apr, 2012 [facility] [address], [place] [address] Mar, [facility] [address] [facility] [id number] [address] Mar, [facility] [address], [place] [address] Mar, [facility] [id number], [place] [address] Mar, [facility] [address], [place] [address] Sep, [facility] [address] [id number], [place] [address] Jun, [facility] [id number] [address] December, IMMUNIZATIONS No Known Immunizations SOCIAL HISTORY Never Assessed REASON FOR VISIT intake PLAN OF CARE Activity Details Follow Up Will schedule after she has her baby. Reason: VITAL SIGNS MEDICATIONS Unknown Medications RESULTS No Results PROCEDURES Procedure Date Ordered Result Body Site Psych diagnostic evaluation, established patient Jul 29, 2017 INSTRUCTIONS MEDICATIONS ADMINISTERED No Known Medications
--- OUTSIDE RECORDS SUMMARY | 2018-02-08 10:08 | XMS REPORT ---
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 Active 860534426 Problem Adderall use disorder, moderate, dependence F15.20 Active 42928322 Problem Posttraumatic stress disorder F43.10 Active 69070437 Problem Nondependent tobacco use disorder 305.1 Active 063310419 Problem Alcohol dependence in sustained full remission F10.21 Active 23882878 Problem Phencyclidine use disorder, moderate, in sustained remission, 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 Active 406760180 Problem Unspecified procreative management V26.9 Active Problem Shortness of breath 786.05 Active 203103621 Problem Dizziness and giddiness 780.4 Active 038160447 Problem Counseling on substance use and abuse V65.42 Active 348828249 Problem Syncope and collapse 780.2 Active 940286510 ALLERGIES No Information ENCOUNTERS Encounter Location Date Diagnosis [facility] [address] [place] [address]28- [address] Oct, [facility] [id number] [place] [address] 01015- 6[address] Aug, Posttraumatic stress disorder F43.10 and 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 [facility] [address] [place] [address] Aug, 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 ; Alcohol dependence in sustained full remission F10.21 and Phencyclidine use disorder, moderate, in sustained remission, 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 [facility] [address] [place] [address]87- [address] Aug, Posttraumatic stress disorder F43.10 and 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 [facility] [address] [place] [address] Jul, 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 ; Alcohol dependence in sustained full remission F10.21 and Phencyclidine use disorder, moderate, in sustained remission, 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 [facility] [id number] [place] [address]0486- 1526 Jul, [facility] [address] [address] Jul, [facility] [address] [place] [address] Jul, 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 ; Alcohol dependence in sustained full remission F10.21 and Phencyclidine use disorder, moderate, in sustained remission, 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 [facility] [address] [id number] Jul, Dental examination Z01.20 [facility] [address] [address] Jul, [facility] [address] [address] Jul, Posttraumatic stress disorder F43.10 and Other stimulant dependence, uncomplicated F15.20 [facility] [address] [id number] Jun, Dental examination Z01.20 and Dental caries K02.9 [facility] [address] [place] [id number] Mar, Gastritis, presence of bleeding unspecified, unspecified chronicity, unspecified gastritis type K29.70 [facility] [id number] [place] [address] 16765- 4528 Oct, Anxiety associated with depression F41.8 [facility] [id number] [place] [address] 24[address]- 4[address] Aug, Anxiety associated with depression F41.8 [facility] [place] [address] [id number] [facility] [id number] 15 Jul, 2015 [facility] [address] [id number] [id number] 03 Apr, 2015 Dental examination V72.2 [facility] [address] [id number] [address] 13 Nov, 2014 [facility] [address] [id number] [address] 90[address] 18 Oct, 2013 [facility] [address] [id number] [address] 77[address] 18 Oct, 2013 [facility] [address] [id number] [address]- 1497 14 Oct, 2013 [facility] [address] [id number] [address]- 6279 13 Oct, 2013 [facility] [address] [id number] [address]- 5177 13 Oct, 2013 [facility] [address] [id number] [address]- 1326 19 Apr, 2012 [facility] [address] [id number], [place] [address] 8[address] 11 Apr, 2012 [facility] [address] [id number] [address]- [address] 10 Apr, 2012 [facility] [address] [facility] [id number] [address]- 8962 09 Apr, 2012 [facility] [address] [facility] [id number] [address]- 5[address] 30 Mar, 2012 [facility] [address] [facility] [id number][place] [address]- 4[address] Mar, [facility] [address] [id number] [address]- 6987 Mar, [facility] [address] [facility] [id number] [place] [address]- 7[address] Mar, [facility] [address] [facility] [id number][place] [address]- 55[address] Sep, [facility] [address] [id number] [address]- 7[address] Jun, [facility] [address] [facility] [id number][place] [address] December, IMMUNIZATIONS No Known Immunizations SOCIAL HISTORY Never Assessed REASON FOR VISIT referral of 30 days PLAN OF CARE VITAL SIGNS MEDICATIONS Unknown Medications RESULTS No Results PROCEDURES No Known procedures INSTRUCTIONS MEDICATIONS ADMINISTERED No Known Medications
--- OUTSIDE RECORDS SUMMARY | 2018-02-08 10:09 | XMS REPORT ---
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 Active 259523369 Problem Adderall use disorder, moderate, dependence F15.20 Active 43690403 Problem Posttraumatic stress disorder F43.10 Active 77127788 Problem Nondependent tobacco use disorder 305.1 Active 470154373 Problem Alcohol dependence in sustained full remission F10.21 Active 31666714 Problem Phencyclidine use disorder, moderate, in sustained remission, 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 Active 487338153 Problem Unspecified procreative management V26.9 Active Problem Shortness of breath 786.05 Active 355125858 Problem Dizziness and giddiness 780.4 Active 871417078 Problem Counseling on substance use and abuse V65.42 Active 498365520 Problem Syncope and collapse 780.2 Active 496784650 ALLERGIES Substance Reaction Event Type Date Status ceclor Unknown Non Drug Allergy Jun, Active ENCOUNTERS Encounter Location Date Diagnosis [facility] [address] [place] [address] Nov, 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 ; Alcohol dependence in sustained full remission F10.21 and Phencyclidine use disorder, moderate, in sustained remission, 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 [facility] [address] [id number] [address] Oct, [facility] [address] [id number] [address] 37[address] Aug, Posttraumatic stress disorder F43.10 and 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 [facility] [address] [place] [address] Aug, 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 ; Alcohol dependence in sustained full remission F10.21 and Phencyclidine use disorder, moderate, in sustained remission, 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 [facility] [address] [address] Aug, Posttraumatic stress disorder F43.10 and 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 [facility] [address] [place] [address] Jul, 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 ; Alcohol dependence in sustained full remission F10.21 and Phencyclidine use disorder, moderate, in sustained remission, 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 [facility] [address] [address] Jul, [facility] [address] [address] Jul, [facility] [address] [place] [address] Jul, 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 ; Alcohol dependence in sustained full remission F10.21 and Phencyclidine use disorder, moderate, in sustained remission, 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 [facility] [address] [id number] Jul, Dental examination Z01.20 [facility] [address] [address] Jul, [facility] [address] [address] Jul, Posttraumatic stress disorder F43.10 and Other stimulant dependence, uncomplicated F15.20 [facility] [address] [id number] Jun, Dental examination Z01.20 and Dental caries K02.9 [facility] [address] [place] [id number] Mar, Gastritis, presence of bleeding unspecified, unspecified chronicity, unspecified gastritis type K29.70 [facility] [address] [id number]- 2546 22 Oct, 2015 Anxiety associated with depression F41.[address] [facility] [address] [id number] [address] 26 Aug, 2015 Anxiety associated with depression F41.8 [facility] [place] [address] [id number] [place] [id number] 15 Jul, [address] [facility] [address] [id number] [place] [id number] 03 Apr, 2015 Dental examination V72.2 [facility] [address] [id number] [address] 13 Nov, 2014 [facility] [address] [address]- 260[address] 18 Oct, 2013 [facility] [address] [address]- 137[address] 18 Oct, 2013 [facility] [address] [address] 14 Oct, 2013 [facility] [address] [address]- 5[address] 13 Oct, 2013 [facility] [address] [address]- 2[address] 13 Oct, 2013 [facility] [address] [address]- 3727 19 Apr, 2012 [facility] [address] [id number] [address]- 9340 11 Apr, 2012 [facility] [address] [id number] [address]- 6[address] 10 Apr, 2012 [facility] [address] [address]- 2731 09 Apr, 2012 [facility] [address] [id number] [address]- 6[address] 30 Mar, 2012 [facility] [address] [address]- 2546 Mar, [facility] [address] [facility] [id number] [place] [address]- 8[address] Mar, [facility] [address] [facility] [id number] [place] [address]- [address] Mar, [facility] [address] [facility] [id number] [place] [address]- [address] Sep, [facility] [address] [facility] [id number] [place] [address]- [address] Jun, [facility] [address] [facility] [id number] [place] [address]- 99[address] December, IMMUNIZATIONS No Known Immunizations SOCIAL HISTORY Never Assessed REASON FOR VISIT WALK IN ANUPAM PLAN OF CARE Activity Details Follow Up prn Reason:As needed VITAL SIGNS Height 63 in 2017-07-12 Blood pressure systolic 108 mmHg 2017-07-12 Blood pressure diastolic 76 mmHg 2017-07-12 MEDICATIONS Medication Instructions Dosage Frequency Start Date End Date Duration Status tylenol Active Acetaminophen-Codeine 300-15 MG Orally every 6 hrs 1 tablet as needed 6h Jun, Jun, 4 days Active RESULTS No Results PROCEDURES Procedure Date Ordered Result Body Site LTD ORAL EVALUATION - PROBLEM FOCUS Jul 12, 2017 INTRAORL-PERIAPICAL 1 FILM 08297 Jul 12, 2017 SURG REMOVAL ERUPTED TOOTH Jul 12, 2017 EXTRAC ERUPTED TOOTH/EXPOSED ROOT Jul 12, 2017 INSTRUCTIONS MEDICATIONS ADMINISTERED No Known Medications
--- OUTSIDE RECORDS SUMMARY | 2018-02-08 10:09 | XMS REPORT ---
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 Active 531072555 Problem Adderall use disorder, moderate, dependence F15.20 Active 00976897 Problem Posttraumatic stress disorder F43.10 Active 01299862 Problem Nondependent tobacco use disorder 305.1 Active 065865112 Problem Alcohol dependence in sustained full remission F10.21 Active 25353816 Problem Phencyclidine use disorder, moderate, in sustained remission, 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 Active 829381195 Problem Unspecified procreative management V26.9 Active Problem Shortness of breath 786.05 Active 907993960 Problem Dizziness and giddiness 780.4 Active 749029666 Problem Counseling on substance use and abuse V65.42 Active 786473625 Problem Syncope and collapse 780.2 Active [id number] ALLERGIES No Information ENCOUNTERS Encounter Location Date Diagnosis [facility] [id number] [place] [address] Jan, [facility] [address] [place] [address] Nov, 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 ; Alcohol dependence in sustained full remission F10.21 and Phencyclidine use disorder, moderate, in sustained remission, 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 [facility] [address] [place] [address] 99183- 3281 Oct, [facility] [id number] [place] [address] 62960- 1648 Aug, Posttraumatic stress disorder F43.10 and 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 [facility] [address] [place] [address] Aug, 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 ; Alcohol dependence in sustained full remission F10.21 and Phencyclidine use disorder, moderate, in sustained remission, 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 [facility] [id number] [place] [address] 09528- 9374 Aug, Posttraumatic stress disorder F43.10 and 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 [facility] [address] [place] [address] Jul, 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 ; Alcohol dependence in sustained full remission F10.21 and Phencyclidine use disorder, moderate, in sustained remission, 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 [facility] [id number] [place] [address] 27728- 1406 Jul, [facility] [address] [address] Jul, [facility] [address] [place] [address] Jul, 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 ; Alcohol dependence in sustained full remission F10.21 and Phencyclidine use disorder, moderate, in sustained remission, 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 [facility] [address] [place] [id number] Jul, Dental examination Z01.20 [facility] [id number] [place] [address]106[address] 9301 Jul, [facility] [id number] [place] [address] 79345- 6283 Jul, Posttraumatic stress disorder F43.10 and Other stimulant dependence, uncomplicated F15.20 [facility] [id number] [place] [id number] Jun, Dental examination Z01.20 and Dental caries K02.9 [facility] [address] [place] [id number] Mar, Gastritis, presence of bleeding unspecified, unspecified chronicity, unspecified gastritis type K29.70 [facility] [id number] [address] 22 Oct, 2015 Anxiety associated with depression F41.8 [facility] [id number] [address] Aug, Anxiety associated with depression F41.8 [facility] [place] [address] [id number] [place] [id number] 15 Jul, 2015 [facility] [address] [id number] [id number] 03 Apr, 2015 Dental examination V72.2 [facility] [address] [address] 13 Nov, 2014 [facility] [address] [address] 18 Oct, 2013 [facility] [address], [place] [address] 78[address] 18 Oct, 2013 [facility] [address] [address] 14 Oct, 2013 [facility] [address] [address] 2[address] 13 Oct, 2013 [facility] [address] [address] 29[address] 13 Oct, 2013 [facility] [address] [place] [address] 19 Apr, 2012 [facility] [address] [address] 2546 11 Apr, 2012 [facility] [address] [address] 10 Apr, 2012 [facility] [id number] [address] 2546 09 Apr, 2012 [facility] [address] [place] [address] 96[address] Mar, [facility] [id number] [address] 7[address] Mar, [facility] [address] [place] [address] 97[address] Mar, [facility] [address] [address] Mar, [facility] [address] [place] [address] 7568 Sep, [facility] [address], [place] [address] 16[address] Jun, [facility] [address], [place] [address] December, IMMUNIZATIONS No Known Immunizations SOCIAL HISTORY Never Assessed REASON FOR VISIT PRSUB-GRP PLAN OF CARE VITAL SIGNS MEDICATIONS Unknown Medications RESULTS No Results PROCEDURES Procedure Date Ordered Result Body Site Alcohol and/or drug services Aug 17, 2017 INSTRUCTIONS MEDICATIONS ADMINISTERED No Known Medications
--- OUTSIDE RECORDS SUMMARY | 2018-02-08 10:09 | XMS REPORT ---
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 Active 115466830 Problem Adderall use disorder, moderate, dependence F15.20 Active 78536700 Problem Posttraumatic stress disorder F43.10 Active 76895213 Problem Nondependent tobacco use disorder 305.1 Active 255004860 Problem Alcohol dependence in sustained full remission F10.21 Active 35143907 Problem Phencyclidine use disorder, moderate, in sustained remission, 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 Active 279419243 Problem Unspecified procreative management V26.9 Active Problem Shortness of breath 786.05 Active 198135081 Problem Dizziness and giddiness 780.4 Active 807113770 Problem Counseling on substance use and abuse V65.42 Active 413929128 Problem Syncope and collapse 780.2 Active 351332651 ALLERGIES Substance Reaction Event Type Date Status ceclor Unknown Non Drug Allergy Jul, Active ENCOUNTERS Encounter Location Date Diagnosis [facility] [address] [place] [address]215[address] 1327 Jan, [facility] [address] [place] [address] Nov, 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 ; Alcohol dependence in sustained full remission F10.21 and Phencyclidine use disorder, moderate, in sustained remission, 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 [facility] [address] [address] 99[address] Oct, [facility] [id number] [place] [address] 96014- 4343 Aug, Posttraumatic stress disorder F43.10 and 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 [facility] [address] [place] [address] Aug, 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 ; Alcohol dependence in sustained full remission F10.21 and Phencyclidine use disorder, moderate, in sustained remission, 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 [facility] [id number] [place] [address] 70622- 1067 Aug, Posttraumatic stress disorder F43.10 and 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 [facility] [address] [place] [address] Jul, 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 ; Alcohol dependence in sustained full remission F10.21 and Phencyclidine use disorder, moderate, in sustained remission, 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 [facility] [id number] [place] [address] 22150- 0023 Jul, [facility] [id number] [place] [address] 74470- 9817 Jul, [facility] [address] [place] [address] Jul, 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 ; Alcohol dependence in sustained full remission F10.21 and Phencyclidine use disorder, moderate, in sustained remission, 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 [facility] [id number] [place] [id number] Jul, Dental examination Z01.20 [facility] [id number] [place] [address] 58106- [address] Jul, [facility] [id number] [place] [address] 11324- 5723 Jul, Posttraumatic stress disorder F43.10 and Other stimulant dependence, uncomplicated F15.20 [facility] [id number] [place] [id number] Jun, Dental examination Z01.20 and Dental caries K02.9 [facility] [address] [place] [id number] Mar, Gastritis, presence of bleeding unspecified, unspecified chronicity, unspecified gastritis type K29.70 [facility] [id number] [address] 9[address] 22 Oct, 2015 Anxiety associated with depression F41.8 [facility] [address] [address] 98[address] Aug, Anxiety associated with depression F41.8 [facility] [place] [address] [id number] [place] [id number] 15 Jul, 2015 [facility] [address] [id number] [id number] 03 Apr, 2015 Dental examination V72.2 [facility] [address] [address] Nov, [facility] [address] [address] 5433 18 Oct, 2013 [facility] [address] [address] 8521 18 Oct, 2013 [facility] [address] [address]- 4[address] 14 Oct, 2013 [facility] [address] [address]- 59[address] 13 Oct, 2013 [facility] [address] [address]- 8672 13 Oct, 2013 [facility] [address] [address]- 7696 19 Apr, 2012 [facility] [address] [address]- 2152 11 Apr, 2012 [facility] [address] [address]- 7102 10 Apr, 2012 [facility] [address] [address]- 7763 09 Apr, 2012 [facility] [address] [address]- 2546 Mar, [facility] [address] [facility] [id number] [address]- 3796 Mar, [facility] [address] [facility] [id number] [place] [address]- 3766 Mar, [facility] [address] [facility] [id number] [place] [address]- 0836 Mar, [facility] [address] [facility] [id number] [place] [address]- 4726 Sep, [facility] [address] [facility] [id number] [address]- 8090 Jun, [facility] [address] [facility] [id number] [address] December, IMMUNIZATIONS No Known Immunizations SOCIAL HISTORY Never Assessed REASON FOR VISIT ANUPAM PLAN OF CARE VITAL SIGNS Height 63 in 2017-08-04 Blood pressure systolic 113 mmHg 2017-08-04 Blood pressure diastolic 74 mmHg 2017-08-04 MEDICATIONS Medication Instructions Dosage Frequency Start Date End Date Duration Status tylenol Active RESULTS No Results PROCEDURES Procedure Date Ordered Result Body Site LTD ORAL EVALUATION - PROBLEM FOCUS Aug 04, 2017 INTRAORL-PERIAPICAL 1 FILM [id number] Aug 04, 2017 Dental no charge Aug 04, 2017 INSTRUCTIONS MEDICATIONS ADMINISTERED No Known Medications
--- OUTSIDE RECORDS SUMMARY | 2018-02-08 10:10 | XMS REPORT ---
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 Active 161666458 Problem Adderall use disorder, moderate, dependence F15.20 Active 97192600 Problem Posttraumatic stress disorder F43.10 Active 76326047 Problem Nondependent tobacco use disorder 305.1 Active 347314966 Problem Alcohol dependence in sustained full remission F10.21 Active 12945709 Problem Phencyclidine use disorder, moderate, in sustained remission, 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 Active 819061778 Problem Unspecified procreative management V26.9 Active Problem Shortness of breath 786.05 Active 119985679 Problem Dizziness and giddiness 780.4 Active 503321867 Problem Counseling on substance use and abuse V65.42 Active 706986345 Problem Syncope and collapse 780.2 Active 153290726 ALLERGIES No Information ENCOUNTERS Encounter Location Date Diagnosis [facility] [address] [place] [address] 28169- [address] Jan, [facility] [address] [place] [address] Nov, 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 [facility] [address] [place] [id number] Jul, Dental examination Z01.20 [facility] [id number] [place] [address] 51968- 5275 Jul, [facility] [id number] [place] [address] 44264- 7204 Jul, Posttraumatic stress disorder F43.10 and Other stimulant dependence, uncomplicated F15.20 [facility] [id number] [place] [id number] Jun, Dental examination Z01.20 and Dental caries K02.9 [facility] [address] [place] [id number] Mar, Gastritis, presence of bleeding unspecified, unspecified chronicity, unspecified gastritis type K29.70 [facility] [id number], [place] [address] 6162 22 Oct, 2015 Anxiety associated with depression F41.8 [facility] [id number] [place] [address] 5586 Aug, Anxiety associated with depression F41.8 [facility] [place] [address] [id number] [place] [id number] 15 Jul, 2015 [facility] [address] [id number] [id number] 03 Apr, 2015 Dental examination V72.2 [facility] [address], [place] [address]- 1196 13 Nov, 2014 [facility] [address], [place] [address]- 2545 18 Oct, 2013 [facility] [address], [place] [address]- 4255 18 Oct, 2013 [facility] [address], [place] [address]- 8413 14 Oct, 2013 [facility] [address], [place] [address]- 7624 13 Oct, 2013 [facility] [address], [place] [address]- 9656 13 Oct, 2013 [facility] [address], [place] [address]- 3278 19 Apr, 2012 [facility] [address], [place] [address] 2546 11 Apr, 2012 [facility] [address], [place] [address]- 2546 10 Apr, 2012 [facility] [id number] [address]- 2546 09 Apr, 2012 [facility] [address], [place] [address]- 5651 Mar, [facility] [id number] [address] 5237 Mar, [facility] [address], [place] [address]- 5265 Mar, [facility] [address], [place] [address]- 8699 Mar, [facility] [address], [place] [address]- 2290 Sep, [facility] [id number], [place] [address]- 8701 Jun, [facility] [address], [place] [address]- 6225 December, IMMUNIZATIONS No Known Immunizations SOCIAL HISTORY Never Assessed REASON FOR VISIT [facility] Assessment PLAN OF CARE Activity Details Follow Up 1 Week Reason:subabfu VITAL SIGNS MEDICATIONS Unknown Medications RESULTS No Results PROCEDURES Procedure Date Ordered Result Body Site ALCOHOL AND/OR DRUG ASSESSMENT Aug 12, 2017 INSTRUCTIONS MEDICATIONS ADMINISTERED No Known Medications
--- OUTSIDE RECORDS SUMMARY | 2018-02-08 10:10 | XMS REPORT ---
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 Active 968751824 Problem Adderall use disorder, moderate, dependence F15.20 Active 97510033 Problem Posttraumatic stress disorder F43.10 Active 76318051 Problem Nondependent tobacco use disorder 305.1 Active 760121599 Problem Alcohol dependence in sustained full remission F10.21 Active 74928271 Problem Phencyclidine use disorder, moderate, in sustained remission, 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 Active 716764381 Problem Unspecified procreative management V26.9 Active Problem Shortness of breath 786.05 Active 355900085 Problem Dizziness and giddiness 780.4 Active 209096841 Problem Counseling on substance use and abuse V65.42 Active 828758370 Problem Syncope and collapse 780.2 Active 253361504 ALLERGIES No Information ENCOUNTERS Encounter Location Date Diagnosis [facility] [id number] [place] [address] Jan, [facility] [address] [place] [address] Nov, 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 ; Alcohol dependence in sustained full remission F10.21 and Phencyclidine use disorder, moderate, in sustained remission, 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 [facility] [id number] [place] [address] Oct, [facility] [id number] [place] [address] Aug, Posttraumatic stress disorder F43.10 and 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 [facility] [address] [place] [address] Aug, 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 ; Alcohol dependence in sustained full remission F10.21 and Phencyclidine use disorder, moderate, in sustained remission, 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 [facility] [id number] [place] [address] Aug, Posttraumatic stress disorder F43.10 and 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 [facility] [address] [place] [address] Jul, 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 ; Alcohol dependence in sustained full remission F10.21 and Phencyclidine use disorder, moderate, in sustained remission, 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 [facility] [id number] [place] [address] Jul, [facility] [address] [address] Jul, [facility] [address] [place] [address] Jul, 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 ; Alcohol dependence in sustained full remission F10.21 and Phencyclidine use disorder, moderate, in sustained remission, 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 [facility] [address] [place] [id number] Jul, Dental examination Z01.20 [facility] [id number] [place] [address] Jul, [facility] [id number] [place] [address] Jul, Posttraumatic stress disorder F43.10 and Other stimulant dependence, uncomplicated F15.20 [facility] [id number] [place] [id number] Jun, Dental examination Z01.20 and Dental caries K02.9 [facility] [address] [place] [id number] Mar, Gastritis, presence of bleeding unspecified, unspecified chronicity, unspecified gastritis type K29.70 [facility] [id number] [address] 22 Oct, 2015 Anxiety associated with depression F41.8 [facility] [id number] [address] Aug, Anxiety associated with depression F41.8 [facility] [place] [id number] [place] [phone] 15 Jul, 2015 [facility] [address] [id number] [phone] 03 Apr, 2015 Dental examination V72.2 [facility] [address] [address] 13 Nov, 2014 [facility] [address] [address] 18 Oct, 2013 [facility] [address] [address] 18 Oct, 2013 [facility] [address] [address] 14 Oct, 2013 [facility] [address] [address] 13 Oct, 2013 [facility] [address] [address] 13 Oct, 2013 [facility] [address] [address] 19 Apr, 2012 [facility] [id number] [address] 11 Apr, 2012 [facility] [address] [address] 10 Apr, 2012 [facility] [id number] [address] 09 Apr, 2012 [facility] [address] [address] Mar, [facility] [id number] [address] Mar, [facility] [id number] [address] Mar, [facility] [id number] [address] Mar, [facility] [address] [address] Sep, [facility] [id number] [address] Jun, [facility] [id number] [address] December, IMMUNIZATIONS No Known Immunizations SOCIAL HISTORY Never Assessed REASON FOR VISIT SUBAB-F/U PLAN OF CARE Activity Details Follow Up 1 Week Reason:subabfu VITAL SIGNS MEDICATIONS Unknown Medications RESULTS No Results PROCEDURES Procedure Date Ordered Result Body Site Alcohol and/or drug services Aug 19, 2017 INSTRUCTIONS MEDICATIONS ADMINISTERED No Known Medications
--- OUTSIDE RECORDS SUMMARY | 2018-02-08 10:11 | XMS REPORT | Continuity of Care Document ---
Author Author [facility] Address Unknown Phone Unavailable Allergies Active Description Code Type Severity Reaction Onset Reported/Identified Relationship to Patient Clinical Status Yes cefaclor [id number] Drug Allergy Moderate HIVES 08/24/2007 Yes Ceclor [...] METHOD 01/13/2011 SHALINI WATKINS APRN R V72.31 PROCUREMENT ASSISTANT EXAM, ROUTINE 01/13/2011 SHALINI WATKINS APRN R [...] 07/24/2013 MOISES ROLLINS, LYNDA Mckinley Ot V06.1 [id number], COMBINED [ 09/17/2013 LYNDA DE LEON MD, [...] PREGNA 07/26/2017 LYNDA DE LEON MD, Ot Z3A.35 35 WEEKS GESTATION OF 07/28/2017 LYNDA DE [...] LIVE 08/07/2017 LYNDA DE LEON MD, Ot Z3A.37 37 WEEKS GESTATION OF 12/06/2017 LYNDA DE LEON MD, Ot 654.23 PREV DELIVERY, ANTEPARTUM COND 12/06/2017 LYNDA DE LEON MD, Ot V72.63 PRE-PROCEDURAL LABORATORY EXAMINATION 12/06/2017 LYNDA DE LEON MD, Ot V74.8 SCREEN-BACTERIAL DIS NEC 12/06/2017 ALMA WEEKS DO Ot 285.9 ANEMIA NOS 12/07/2017 LYNDA DE LEON MD Ot 654.23 PREV DELIVERY, ANTEPARTUM COND 12/07/2017 LYNDA DE LEON MD Ot V72.63 PRE-PROCEDURAL LABORATORY EXAMINATION 12/07/2017 LYNDA DE LEON MD Ot V74.8 SCREEN-BACTERIAL DIS NEC 12/07/2017 MICKY PRICE, ALMA A Ot 285.9 ANEMIA NOS 12/08/2017 EDISON OTOOLE MD Ot F17.210 NICOTINE DEPENDENCE, CIGARETTES, UNCOMPL 12/08/2017 EDISON OTOOLE MD Ot F32.9 MAJOR DEPRESSIVE DISORDER, SINGLE EPISOD 12/08/2017 EDISON OTOOLE MD Ot M54.5 LOW BACK PAIN 12/08/2017 EDISON OTOOLE MD Ot R53.83 OTHER FATIGUE 12/08/2017 EDISON OTOOLE MD Ot Z87.19 PERSONAL HISTORY OF OTHER DISEASES OF 12/08/2017 EDISON OTOOLE MD Ot Z87.440 PERSONAL HISTORY OF URINARY (TRACT) INFE 12/08/2017 EDISON OTOOLE MD Ot Z87.59 PERSONAL HISTORY OF COMP OF PREG, CHLDBR 12/08/2017 EDISON OTOOLE MD Ot Z88.1 ALLERGY STATUS TO OTHER ANTIBIOTIC AGENT 12/08/2017 EDISON OTOOLE MD Ot Z90.89 ACQUIRED ABSENCE OF OTHER ORGANS 12/08/2017 EDISON OTOOLE MD Ot Z91.5 PERSONAL HISTORY OF SELF-HARM 12/08/2017 EDISON OTOOLE MD Ot F17.210 NICOTINE DEPENDENCE, CIGARETTES, UNCOMPL 12/08/2017 EDISON OTOOLE MD Ot F32.9 MAJOR DEPRESSIVE DISORDER, SINGLE EPISOD 12/08/2017 EDISON OTOOLE MD Ot M54.5 LOW BACK PAIN 12/08/2017 EDISON OTOOLE MD Ot R53.83 OTHER FATIGUE 12/08/2017 EDISON OTOOLE MD Ot Z87.19 PERSONAL HISTORY OF OTHER DISEASES OF 12/08/2017 EDISON OTOOLE MD Ot Z87.440 PERSONAL HISTORY OF URINARY (TRACT) INFE 12/08/2017 EDISON OTOOLE MD Ot Z87.59 PERSONAL HISTORY OF COMP OF PREG, CHLDBR 12/08/2017 EDISON OTOOLE MD Ot Z88.1 ALLERGY STATUS TO OTHER ANTIBIOTIC AGENT 12/08/2017 EDISON OTOOLE MD Ot Z90.89 ACQUIRED ABSENCE OF OTHER ORGANS 12/08/2017 EDISON OTOOLE MD Ot Z91.5 PERSONAL HISTORY OF SELF-HARM Procedures Code Description Performed By Performed On 74.1 LOW CERVICAL 10/19/2013 07540 ROUTINE VENIPUNCTURE 11/08/2013 22074 EKG, TRACING 11/08/2013 49453 URINE DRUG SCREEN (IN-HOUSE ) 11/08/2013 65988 UA W/ CULTURE IF INDICATED 11/08/2013 76341 CBC 11/08/2013 0041900 GFR CALC (RESULT ONLY) 11/08/2013 29836 CMP 11/08/2013 76803 CULTURE URINE 11/09/2013 30457 Immunization Admin with counseling Brian Cano 06/07/2017 83349 Immunization Adm Single Vaccine Brian Cano 06/07/2017 35682 Influenza vaccine, quad, IM , 3yr T > Brian Cano 06/07/2017 56719 Tdap, 7 Yrs & Older Brian Cano 06/07/2017 [id number] EXTRACTION OF POC, LOW CERVICAL, OPEN AP [...] - 12/19/16 12:19 *GFR EST NON AFR [place] >90 mL/min NRG *GRFA EST AFR AMER [...] 14 U/L 16-63 AST (SGOT) 11 U/L 15-37 GFR ESTIMATION - 12/24/16 20:54 *GFR EST NON AFR [place] >90 mL/min NRG *GRFA EST AFR AMER >90 mL/min NRG LIPASE - 12/24/16 20:54 LIPASE 119 U/L 73-393 HCG QUANT - 12/24/16 20:54 HCG QUANT 38266 0-6 RH TYPE - 12/24/16 21:13 RH [...] ABO+Rh group AP NRG Transfusion band number [id number] NRG Blood group antibody screen NEGATIVE NRG [...] ABO+Rh group AP NRG Transfusion band number [id number] NRG Blood group antibody screen NEGATIVE NRG Methicillin resistant Staphylococcus aureus (MRSA) screening culture - 14:25 Methicillin resistant Staphylococcus aureus (MRSA) screening culture NEG NRG Complete urinalysis with reflex to culture - 12/06/17 16:01 Urine color determination YELLOW NRG Urine clarity determination CLEAR NRG Urine pH measurement by test strip 7 5-9 Specific gravity of urine by test strip 1.005 1.016- 1.022 Urine protein assay by test strip, semi-quantitative NEGATIVE NEGATIVE Urine glucose detection by automated test strip NEGATIVE NEGATIVE Erythrocytes detection in urine sediment by light microscopy 5+ NEGATIVE Urine ketones detection by automated test strip NEGATIVE NEGATIVE Urine nitrite detection by test strip NEGATIVE NEGATIVE Urine total bilirubin detection by test strip NEGATIVE NEGATIVE Urine urobilinogen measurement by automated test strip (mass/volume) NORMAL NORMAL Urine leukocyte esterase detection by dipstick NEGATIVE NEGATIVE Automated urine sediment erythrocyte count by microscopy (number/high power field) [HPF] NRG Automated urine sediment leukocyte count by microscopy (number/high power field ) RARE NRG Bacteria detection in urine sediment by light microscopy TRACE NRG Squamous epithelial cells detection in urine sediment by light microscopy 0-2 NRG Crystals detection in urine sediment by light microscopy NONE NRG Casts detection in urine sediment by light microscopy NONE NRG Mucus detection in urine sediment by light microscopy NEGATIVE NRG Complete urinalysis with reflex to culture NO NRG Urine drug screening test - 12/06/17 16:01 Urine phencyclidine detection by screening method NEGATIVE NEGATIVE Urine benzodiazepines detection by screening method NEGATIVE NEGATIVE Urine cocaine detection NEGATIVE NEGATIVE Urine amphetamines detection by screening method NEGATIVE NEGATIVE Urine methamphetamine detection by screening method NEGATIVE NEGATIVE Urine cannabinoids detection by screening method NEGATIVE NEGATIVE Urine opiates detection by screening method NEGATIVE NEGATIVE Urine barbiturates detection NEGATIVE NEGATIVE Screening urine tricyclic antidepressants detection NEGATIVE NEGATIVE Urine methadone detection by screening method NEGATIVE NEGATIVE Urine oxycodone detection NEGATIVE NEGATIVE Urine propoxyphene detection NEGATIVE NEGATIVE Complete blood count (CBC) with automated white blood cell (WBC) differential - 12/06/17 16:10 Blood leukocytes automated count (number/volume) 10.0 10*3/uL 4.3-11.0 Blood erythrocytes automated count (number/volume) 4.92 10*6/uL 4.35-5.85 Venous blood hemoglobin measurement (mass/volume) 13.2 g/dL 11.5-16.0 Blood hematocrit (volume fraction) 40 % 35-52 Automated erythrocyte mean corpuscular volume 82 [foz_us] 80-99 Automated erythrocyte mean corpuscular hemoglobin (mass per erythrocyte) 27 pg 25-34 Automated erythrocyte mean corpuscular hemoglobin concentration measurement ( mass/volume) 33 g/dL 32-36 Automated erythrocyte distribution width ratio 13.9 % 10.0-14.5 Automated blood platelet count (count/volume) 360 10*3/uL 130-400 Automated blood platelet mean volume measurement 9.8 [foz_us] 7.4-10.4 Automated blood neutrophils/100 leukocytes 57 % 42-75 Automated blood lymphocytes/100 leukocytes 33 % 12-44 Blood monocytes/100 leukocytes 6 % 0-12 Automated blood eosinophils/100 leukocytes 3 % 0-10 Automated blood basophils/100 leukocytes 0 % 0-10 Blood neutrophils automated count (number/volume) 5.7 10*3 1.8-7.8 Blood lymphocytes automated count (number/volume) 3.3 10*3 1.0-4.0 Blood monocytes automated count (number/volume) 0.6 10*3 0.0-1.0 Automated eosinophil count 0.3 10*3/uL 0.0-0.3 Automated blood basophil count (count/volume) 0.0 10*3/uL 0.0-0.1 Serum or plasma choriogonadotropin ( test) detection - 12/06/17 16:10 Serum or plasma choriogonadotropin ( test) detection NEGATIVE NEGATIVE Comprehensive metabolic panel - 12/06/17 16:10 Serum or plasma sodium measurement (moles/volume) 141 mmol/L 135-145 Serum or plasma potassium measurement (moles/volume) 3.6 mmol/L 3.6-5.0 Serum or plasma chloride measurement (moles/volume) 107 mmol/L 98-107 Carbon dioxide 30 mmol/L 21-32 Serum or plasma anion gap determination (moles/volume) 4 mmol/L 5-14 Serum or plasma urea nitrogen measurement (mass/volume) 8 mg/dL 7-18 Serum or plasma creatinine measurement (mass/volume) 0.75 mg/dL 0.60-1.30 Serum or plasma urea nitrogen/creatinine mass ratio 11 NRG Serum or plasma creatinine measurement with calculation of estimated glomerular filtration rate > NRG Serum or plasma glucose measurement (mass/volume) 94 mg/dL 70-105 Serum or plasma calcium measurement (mass/volume) 9.5 mg/dL 8.5-10.1 Serum or plasma total bilirubin measurement (mass/volume) 0.2 mg/dL 0.1-1.0 Serum or plasma alkaline phosphatase measurement (enzymatic activity/volume) 81 U/L 40-136 Serum or plasma aspartate aminotransferase measurement (enzymatic activity/ volume) 15 U/L 5-34 Serum or plasma alanine aminotransferase measurement (enzymatic activity/volume ) 18 U/L 0-55 Serum or plasma protein measurement (mass/volume) 7.0 g/dL 6.4-8.2 Serum or plasma albumin measurement (mass/volume) 4.2 g/dL 3.2-4.5 Serum or plasma thyroxine (T4) free measurement (mass/volume) - 12/06/17 16:10 Serum or plasma thyroxine (T4) free measurement (mass/volume) 1.09 ng/dL 0.70-1.48 Serum or plasma thyrotropin measurement by detection limit <=0.05 miu/l (units/ volume) - 12/06/17 16:10 Serum or plasma thyrotropin measurement by detection limit <=0.05 miu/l (units/ volume) 0.30 u[iU]/mL 0.35-4.94 Encounters ACCT No. Visit Date/Time Discharge Status Pt. Type Provider Facility Loc./Unit Complaint [id number] 11/08/2013 10:56:00 11/08/2013 23:59:59 CLS Outpatient SHALINI WATKINS APRN [id number] 12/06/2017 15:46:00 12/06/2017 18:36:00 DIS Outpatient EDISON OTOOLE MD [facility] ER BACK PAIN [id number] 08/05/2017 13:45:00 08/07/2017 14:30:00 DIS Inpatient LYNDA DE LEON MD [facility] LDRP PREVIOUS SECTION [id number] 07/28/2017 13:08:00 07/28/2017 14:05:00 DIS Outpatient LYNDA DE LEON MD [facility] WSo CONTRACTIONS [id number] 07/21/2017 02:27:00 07/21/2017 08:05:00 DIS Outpatient LYNDA [facility] LEON MD [facility] VOMITING [id number] 07/20/2017 12:08:00 07/20/2017 17:15:00 DIS Outpatient LYNDA DE LEON MD [facility] NO FLUID AROUND BABY [id number] 07/01/2017 14:03:00 07/01/2017 15:40:00 DIS Outpatient MARY AMEZCUA DO [facility] WSo CONTRACTIONS [id number] 01/30/2014 10:55:00 01/30/2014 23:59:59 CLS Outpatient GELALMA FOSTER DO [facility] LAB ANEMIA [id number] 10/18/2013 23:40:00 10/20/2013 13:15:00 DIS Inpatient LYNDA DE LEON MD [facility] WS LABOR [id number] 10/16/2013 07:17:00 10/16/2013 23:59:59 CLS Outpatient LYNDA DE LEON MD [facility] PREOP PREVIOUS SECTION [id number] 09/30/2013 10:53:00 09/30/2013 14:00:00 DIS Outpatient LYNDA DE LEON MD [facility] VOMITING DIARRHEA [id number] 09/17/2013 16:20:00 09/17/2013 16:24:00 DIS Outpatient LYNDA DE LEON MD [facility] WSo CONTRACTIONS [id number] 07/24/2013 10:51:00 07/24/2013 12:25:00 DIS Outpatient LYNDA DE LEON MD Via [facility] LEAKING FLUID,ABD PAIN [id number] 05/03/2013 08:09:00 05/03/2013 11:00:00 DIS Emergency [id number] 11/13/2014 22:01:00 Document Registration [id number] 06/07/2017 11:43:45 Document Registration [id number] 04/26/2017 09:03:47 ACT Outpatient [facility] 1 [id number] 04/26/2017 09:03:26 ACT Outpatient [facility] 1 [id number] [id number] 04/25/2017 15:20:34 Document Registration [id number] 06/06/2017 10:21:00 06/06/2017 23:54:35 DIS Emergency JIMBO BILLY TOOTH PAIN [id number] 01/12/2017 10:04:00 01/12/2017 23:50:42 DIS Emergency DAVID HARRELL 9 WKS PREG. BLEEDING [id number] 12/24/2016 20:10:00 12/25/2016 03:33:46 DIS Emergency ALMA ROY L VAGINAL BLEEDING [id number] 12/19/2016 11:48:00 12/20/2016 01:37:32 DIS Emergency DAVID HARRELL RIGHT SIDE PAIN [id number] 03/14/2016 12:47:00 03/14/2016 17:28:50 DIS Emergency DAVID HARRELL SCHOLIOSIS/BACK PAIN, NAUSEA [id number] 12/23/2017 15:30:00 12/23/2017 23:59:59 CLS Outpatient RICKEY VALDIVIA APRN [id number] 01/13/2017 07:39:01 ACT Document Registration
--- NOTE | 2018-02-08 10:28 | ED Fall/Injury ---
General Chief Complaint: Trauma-Non Activation Stated Complaint: BODY SORE,ABD PAIN FELL IN SHOWER STATES IS PG Nursing Triage Note: ARRIVED VIA AMB TO ROOM 06 WITHOUT DIFFICULTY. STATES SHE FELL IN THE SHOWER YESTEDAY. TODAY SHE IS SORE ON THE LEFT SIDE OF HER BODY. STATES SHE IS ET UNKNOWN HOW FAR ALONG AND WANTS TO MAKE SURE EVERYTHING IS OK WITH THE BABY. PT HAS A 6MONTH OLD AT HOME. Source: patient History of Present Illness Date Seen by Provider: Feb 08, 2018 Time Seen by Provider: 10:14 Initial Comments PT STATES SHE FELL IN THE SHOWER LAST NIGHT SOMETIME BEFORE 1900 LANDED ON HER LEFT SIDE NO PAIN UNTIL THE MIDDLE OF THE NIGHT, AND NOW HER LEFT SIDE IS STARTING TO GET SORE PT STATES SHE IS , STATES SHE HAD A + HOME TEST ON 01/07/18, BUT HAS NO IDEA WHEN HER LMP WAS AND HAS NO IDEA HOW FAR ALONG SHE MIGHT BE. PT STATES SHE HAS A 6 MONTH OLD CHILD AT HOME NO CONTROL NO VAGINAL BLEEDING NO PELVIC PAIN DID NOT HIT HEAD AND NO LOSS OF CONSCIOUSNESS NO NECK OR BACK PAIN NO EXTREMITY PAIN STATES SHE "JUST WANTED TO GET THE BABY CHECKED" PT HAS NEW OB APPOINTMENT WITH DR. MCCOLLUM 02/16/18 Allergies and Home Medications Allergies Coded Allergies: cefaclor (Verified Allergy, Intermediate, HIVES, 08/24/07) diphenhydramine (Verified Allergy, Unknown, 02/08/18) Home Medications Tramadol HCl 50 Mg Tablet, 50 MG PO Q6H PRN for PAIN-MODERATE TO SEVERE Prescribed by: MELISSA GOTTI on 12/06/17 8690 Patient Home Medication List Home Medication List Reviewed: Yes Review of Systems Constitutional: no symptoms reported Eyes: No Symptoms Reported Ears, Nose, Mouth, Throat: no symptoms reported Respiratory: no symptoms reported Cardiovascular: no symptoms reported Gastrointestinal: no symptoms reported Genitourinary: no symptoms reported : Yes Musculoskeletal: see HPI Skin: no symptoms reported Psychiatric/Neurological: No Symptoms Reported Past Qymzrrw-Kjbiwo-Nzfplm Hx Patient Social History Alcohol Use: Denies Use Recreational Drug Use: No Smoking Status: Current Everyday Smoker Type Used: Cigarettes 2nd Hand Smoke Exposure: Yes Recent Foreign Travel: No Contact w/Someone Who Travel: No Recent Infectious Disease Expo: No Recent Hopitalizations: Yes (SUICIDE ATTEMPT, ALCOHOL ABUSE) Immunizations Up To Date Tetanus Booster (TDap): Unknown Date of Influenza Vaccine: May 31, 2017 Seasonal Allergies Seasonal Allergies: No Past Medical History Surgeries: Yes () Section, Tonsillectomy Respiratory: No Cardiac: No Neurological: No : Yes Reproductive Disorders: No Genitourinary: Yes UTI-Chronic Gastrointestinal: Yes Ulcer Musculoskeletal: Yes (SCOLIOSIS) Scoliosis Endocrine: No HEENT: No Cancer: No Psychosocial: Yes (SOCIAL PHOBIA) Depression Integumentary: No Blood Disorders: No Family Medical History Cancer of colon GRANDPARENTS Congestive heart failure GRANDPARENTS Family history: Arthritis GRANDPARENTS Family history: Cardiovascular disease GRANDPARENTS Family history: Diabetes mellitus GRANDPARENTS Family history: Hypertension GRANDPARENTS Myocardial infarction GRANDPARENTS Seizure disorder GRANDPARENTS Stroke GRANDPARENTS No Family History of: Abdominal aortic aneurysm Family history: Gastrointestinal disease Family history: Thyroid disorder Hereditary disease History of - anemia History of - respiratory disease No Pertinent Family Hx Physical Exam Vital Signs Vital Signs - First Documented 02/08/18 10:07 Temp 98.0 Pulse 110 Resp 16 B/P (MAP) 106/91 (96) Pulse Ox 98 O2 Delivery Room Air Capillary Refill : Less Than 3 Seconds General Appearance: WD/WN, no apparent distress, other (REEKS OF CIGARETTES. AMBULATES WITHOUT DIFFICULTY) Neck: non-tender, full range of motion, supple, normal inspection Cardiovascular: regular rate, rhythm, no edema, no JVD, no murmur Respiratory: normal breath sounds, no respiratory distress, other (MILD TENDERNESS TO LEFT LOWER RIBS--ANTERIOR, LATERAL AND POSTERIOR. 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, no motor/sensory deficits, alert, normal mood/affect, oriented x 3 Skin: normal color, warm/dry, other (NO EXTERNAL EVIDENCE OF TRAUMA ANYWHERE) [place] Coma Score Best Eye Response: (4) Open Spontaneously Best Verbal Response: (5) Oriented Best Motor Response: (6) Obeys Commands [place] Total: 15 Progress/Results/Core Measures Results/Orders Lab Results Laboratory Tests Test 02/08/18 10:35 02/08/18 10:40 Range/Units Urine Color YELLOW Urine Clarity CLEAR Urine pH 7 5-9 Urine Specific [place] 1.005 L 1.016-1.022 Urine Protein NEGATIVE NEGATIVE Urine Glucose (UA) NEGATIVE NEGATIVE Urine Ketones NEGATIVE NEGATIVE Urine Nitrite NEGATIVE NEGATIVE Urine Bilirubin NEGATIVE NEGATIVE Urine Urobilinogen NORMAL NORMAL MG/DL Urine Leukocyte Esterase NEGATIVE NEGATIVE Urine RBC (Auto) NEGATIVE NEGATIVE Urine RBC NONE /HPF Urine WBC 0-2 /HPF Urine Squamous Epithelial Cells 25-50 H /HPF Urine Renal Epithelial Cells NONE /HPF Urine Crystals NONE /LPF Urine Bacteria NEGATIVE /HPF Urine Casts NONE /LPF Urine Mucus NEGATIVE /LPF Urine Culture Indicated NO Urine Opiates Screen NEGATIVE NEGATIVE Urine Oxycodone Screen NEGATIVE NEGATIVE Urine Methadone Screen NEGATIVE NEGATIVE Urine Propoxyphene Screen NEGATIVE NEGATIVE Urine Barbiturates Screen NEGATIVE NEGATIVE Ur Tricyclic Antidepressants Screen NEGATIVE NEGATIVE Urine Phencyclidine Screen NEGATIVE NEGATIVE Urine Amphetamines Screen NEGATIVE NEGATIVE Urine Methamphetamines Screen NEGATIVE NEGATIVE Urine Benzodiazepines Screen NEGATIVE NEGATIVE Urine Cocaine Screen NEGATIVE NEGATIVE Urine Cannabinoids Screen NEGATIVE NEGATIVE White Blood Count 9.8 4.3-11.0 10^3/uL Red Blood Count 4.94 4.35-5.85 10^6/uL Hemoglobin 13.3 11.5-16.0 G/DL Hematocrit 40 35-52 % Mean Corpuscular Volume 80 80-99 FL Mean Corpuscular Hemoglobin 27 25-34 PG Mean Corpuscular Hemoglobin Concent 34 32-36 G/DL Red Cell Distribution Width 15.3 H 10.0-14.5 % Platelet Count 384 130-400 10^3/uL Mean Platelet Volume 9.5 7.4-10.4 FL Neutrophils (%) (Auto) 64 42-75 % Lymphocytes (%) (Auto) 24 12-44 % Monocytes (%) (Auto) 9 0-12 % Eosinophils (%) (Auto) 3 0-10 % Basophils (%) (Auto) 0 0-10 % Neutrophils # (Auto) 6.3 1.8-7.8 X 10^3 Lymphocytes # (Auto) 2.3 1.0-4.0 X 10^3 Monocytes # (Auto) 0.9 0.0-1.0 X 10^3 Eosinophils # (Auto) 0.3 0.0-0.3 10^3/uL Basophils # (Auto) 0.0 0.0-0.1 10^3/uL Sodium Level 137 135-145 MMOL/L Potassium Level 4.0 3.6-5.0 MMOL/L Chloride Level 106 98-107 MMOL/L Carbon Dioxide Level 23 21-32 MMOL/L Anion Gap 8 5-14 MMOL/L Blood Urea Nitrogen 6 L 7-18 MG/DL Creatinine 0.64 0.60-1.30 MG/DL Estimat Glomerular Filtration Rate > 60 BUN/Creatinine Ratio 9 Glucose Level 96 70-105 MG/DL Calcium Level 9.2 8.5-10.1 MG/DL Total Bilirubin 0.3 0.1-1.0 MG/DL Aspartate Amino Transf (AST/SGOT) 9 5-34 U/L Alanine Aminotransferase (ALT/SGPT) 8 0-55 U/L Alkaline Phosphatase 72 40-136 U/L Total Protein 6.8 6.4-8.2 GM/DL Albumin 4.0 3.2-4.5 GM/DL Amylase Level 44 25-125 U/L Lipase 13 8-78 U/L My Orders Orders - THIERRY RODRÍGUEZ DO Amylase (02/08/18 10:22) Cbc With Automated Diff (02/08/18 10:22) Comprehensive Metabolic Panel (02/08/18 10:22) Drug Screen Stat (Urine) (02/08/18 10:22) Hcg,Quantitative (02/08/18 10:22) Lipase (02/08/18 10:22) Protime With Inr (02/08/18 10:22) Partial Thromboplastin Time (02/08/18 10:22) Ua Culture If Indicated (02/08/18 10:22) Abo Rh Type (02/08/18 10:22) Us Ob Single Fetus<14 [id number] (02/08/18 10:22) Vital Signs/I&O 02/08/18 10:07 Temp 98.0 Pulse 110 Resp 16 B/P (MAP) 106/91 (96) Pulse Ox 98 O2 Delivery Room Air Blood Pressure Mean: 96 Diagnostic Imaging Comments ULTRASOUND --SINGLE IUP 9 WEEKS, FHR 181. NO ACUTE ABNORMALITIES--PER RADIOLOGIST REPORT @ 1128 Reviewed: Reviewed by Me Departure Impression Primary Impression: Status post fall Additional Impressions: LEFT TRUNK CONTUSION 9 weeks gestation of Disposition: 01 HOME, SELF-CARE Condition: Stable Departure-Patient Inst. Referrals: FRITZ MCCOLLUM RICHARD A DO (PCP/Family) Primary Care Physician Patient Instructions: Activity During , Contusion (DC), How to Adapt to Physical Changes During , How to Plan and Prepare for a Healthy Add. Discharge Instructions: LOTS OF CLEAR LIQUIDS--NO COFFEE, POP OR TEA TYLENOL NEEDED FOR PAIN TAKE VITAMINS DAILY KEEP YOUR APPOINTMENT WITH DR. MCCOLLUM SCHEDULED, OR SOONER IF SYMPTOMS WORSEN All discharge instructions reviewed with patient and/or family. Voiced understanding. THIERRY RODRÍGUEZ DO Feb 08, 2018 10:28
[2018-02-08 10:52] LABS: BILIRUBIN,URINE NEGATIVE (NEGATIVE); CLARITY,URINE CLEAR; COLOR,URINE YELLOW; GLUCOSE, URINE (UA) NEGATIVE (NEGATIVE); KETONES,URINE NEGATIVE (NEGATIVE); LEUKOCYTE ESTERASE ,URINE NEGATIVE (NEGATIVE); NITRITE,URINE NEGATIVE (NEGATIVE); PH,URINE 7 (5-9); PROTEIN,URINE NEGATIVE (NEGATIVE); UROBILINOGEN,URINE NORMAL (NORMAL)
[2018-02-08 10:52] LABS: BASOPHILS % (AUTO) 0 % (0-10); EOSINOPHILS # (AUTO) 0.3 10^3/uL (0.0-0.3); EOSINOPHILS % (AUTO) 3 % (0-10); HEMATOCRIT 40 % (35-52); HEMOGLOBIN 13.3 G/DL (11.5-16.0); LYMPHOCYTES # (AUTO) 2.3 X 10^3 (1.0-4.0); LYMPHOCYTES % (AUTO) 24 % (12-44); MEAN CORPUSCULAR HEMOGLOBIN 27 PG (25-34); MEAN CORPUSCULAR HGB CONC 34 G/DL (32-36); MEAN CORPUSCULAR VOLUME 80 FL (80-99); MEAN PLATELET VOLUME 9.5 FL (7.4-10.4); MONOCYTES # (AUTO) 0.9 X 10^3 (0.0-1.0); MONOCYTES % (AUTO) 9 % (0-12); NEUTROPHILS # (AUTO) 6.3 X 10^3 (1.8-7.8); NEUTROPHILS % (AUTO) 64 % (42-75); PLATELET COUNT 384 10^3/uL (130-400); RED BLOOD COUNT 4.94 10^6/uL (4.35-5.85); RED CELL DISTRIBUTION WIDTH 15.3 % (10.0-14.5); WHITE BLOOD COUNT 9.8 10^3/uL (4.3-11.0)
[2018-02-08 11:10] LABS: AMPHETAMINE SCREEN, URINE NEGATIVE (NEGATIVE); BARBITURATE SCREEN URINE NEGATIVE (NEGATIVE); BENZODIAZEPINES SCREEN URINE NEGATIVE (NEGATIVE); CANNABINOID SCREEN, URINE NEGATIVE (NEGATIVE); COCAINE SCREEN URINE NEGATIVE (NEGATIVE); METHADONE STAT NEGATIVE (NEGATIVE); METHAMPHETAMINE SCREEN URINE S NEGATIVE (NEGATIVE); OPIATE SCREEN URINE NEGATIVE (NEGATIVE); OXYCODONE STAT NEGATIVE (NEGATIVE); PROPOXYPHENE STAT NEGATIVE (NEGATIVE); TRICYCLIC ANTIDEPRESSANTS SCRE NEGATIVE (NEGATIVE)
[2018-02-08 11:17] LABS: ALANINE AMINOTRANSFERASE 8 U/L (0-55); ALKALINE PHOSPHATASE 72 U/L (40-136); AMYLASE 44 U/L (25-125); BILIRUBIN,TOTAL 0.3 MG/DL (0.1-1.0); BUN/CREATININE RATIO 9; CALCIUM 9.2 MG/DL (8.5-10.1); CARBON DIOXIDE 23 MMOL/L (21-32); CHLORIDE 106 MMOL/L (98-107); CREATININE SERUM 0.64 MG/DL (0.60-1.30); GFR ESTIMATED > 60; GLUCOSE 96 MG/DL (70-105); LIPASE 13 U/L (8-78); SODIUM 137 MMOL/L (135-145); TOTAL PROTEIN 6.8 GM/DL (6.4-8.2)
[2018-02-08 11:21] LABS: BACTERIA,URINE NEGATIVE /HPF; SQUAMOUS EPITHELIAL CELL,UR 25-50 /HPF; WBC,URINE 0-2 /HPF
--- NOTE | 2018-02-08 11:25 | Diagnostic Imaging Report ---
PROCEDURE: US OB SINGLE FETUS <14 WKS. TECHNIQUE: Multiple real-time grayscale images were obtained over the gravid uterus in various projections. INDICATION: dating. There is an intrauterine gestational sac containing a pole. [place]-rump length measurement is 2.3 cm consistent with 9 week zero day gestation. heart rate was recorded at 181 beats per minute. No carmen-gestational site hemorrhage is seen. Gestational sac shape is within normal limits. Adnexal evaluation was performed. Ovaries are not visualized. No adnexal mass or free fluid is seen. IMPRESSION: Single live IUP 9 weeks zero days gestational age. The estimated date of confinement sonographically is 09/13/2018. Dictated by: Dictated on workstation # [id number]
[2018-02-08 11:31] LABS: PROTHROMBIN TIME PATIENT 13.3 SEC (12.2-14.7)
[2018-02-08 11:34] VITALS: BP 106/91
== END 2018-02-08 11:34 | disposition home or self-care (01) ==
LOC: EDUNIT# 10:03 → ER 10:05
DX: O9A.211 Injury, poisoning and certain other consequences of external causes complicating pregnancy, first trimester (principal); S20.212A Contusion of left front wall of thorax, initial encounter; R40.2142 Coma scale, eyes open, spontaneous, at arrival to emergency department; R40.2252 Coma scale, best verbal response, oriented, at arrival to emergency department; R40.2362 Coma scale, best motor response, obeys commands, at arrival to emergency department; O99.341 Other mental disorders complicating pregnancy, first trimester; F32.9 Major depressive disorder, single episode, unspecified; O99.331 Smoking (tobacco) complicating pregnancy, first trimester; F17.210 Nicotine dependence, cigarettes, uncomplicated; Z87.19 Personal history of other diseases of the digestive system; Z87.59 Personal history of other complications of pregnancy, childbirth and the puerperium; Z90.89 Acquired absence of other organs; Z91.5 Personal history of self-harm; Z88.8 Allergy status to other drugs, medicaments and biological substances; Z88.6 Allergy status to analgesic agent; Z3A.09 9 weeks gestation of pregnancy; W18.2XXA Fall in (into) shower or empty bathtub, initial encounter
CPT/HCPCS: 36415; 76801; 80053; 80306; 81000; 82150; 83690; 84702; 85025; 85610; 85730

== ENCOUNTER → 2018-06-12 | Outpatient (CLI) | payer MEDICAID ==
--- NOTE | 2018-06-12 13:32 | Diagnostic Imaging Report ---
INDICATION: survey. TECHNIQUE: Multiple real-time grayscale images were obtained over the gravid uterus. COMPARISON: 02/08/2018. FINDINGS: Cervical length is 4.1 cm. There is a single live fetus in a cephalic presentation. Placenta is posterior. Amniotic fluid volume is normal. heart rate was recorded at 152 beats per minute. survey demonstrates kidney, bladder and stomach to be unremarkable. There is a four-chamber heart. There is a three-vessel cord with normal insertion. spine was limited in evaluation due to position. In addition, intracranial structures are somewhat limited in evaluation. Biometrical measurements are as follows: Biparietal 6.63 cm, age 26 weeks 6 days. Head circumference 23.98 cm, age 26 weeks 1 days. Abdominal circumference 20.84 cm, age 25 weeks 3 days. Femur length 4.86 cm, age 26 weeks 3 days. Sonographic estimate age: 26 weeks 5 days. Sonographic estimated date of delivery: 09/16/2018. Estimated Weight: 862 gm (+/- 126 gm). LMP percentile: 12%. heart rate: 152 beats per minute. number: 1 of 1. IMPRESSION: Single live IUP approximately 26 weeks 5 days gestational age showing normal interval growth when compared with prior study from 02/08/2018. spine and intracranial structures are somewhat limited in evaluation. Followup could be performed. Dictated by: Dictated on workstation # [id number]
== END ==
LOC: RAD 11:38
PROVIDERS: ATTEND Family Medicine
DX: Z36.89 Encounter for other specified antenatal screening (principal); Z3A.26 26 weeks gestation of pregnancy
CPT/HCPCS: 76805

== ENCOUNTER 2018-08-08 23:20 | Outpatient (CLI) | payer MEDICAID ==
[~2018-08-08] VITALS: Ht 162.6 cm; Wt 88.0 kg
[2018-08-08 23:35] VITALS: BP 129/76
[2018-08-08 23:39] LABS: BILIRUBIN,URINE NEGATIVE (NEGATIVE); COLOR,URINE YELLOW; GLUCOSE, URINE (UA) NEGATIVE (NEGATIVE); KETONES,URINE NEGATIVE (NEGATIVE); LEUKOCYTE ESTERASE ,URINE 1+ (NEGATIVE); NITRITE,URINE NEGATIVE (NEGATIVE); PH,URINE 7 (5-9); PROTEIN,URINE 2+ (NEGATIVE); UROBILINOGEN,URINE 1 MG/DL (NORMAL)
[2018-08-08 23:46] LABS: BACTERIA,URINE LARGE /HPF; CALCIUM OXALATE CRYSTALS,UR FEW /LPF; CLARITY,URINE SL CLOUDY; WBC,URINE 0-2 /HPF
[2018-08-08] MEDS ORDERED: NITR-65 PO (23:55)
== END 2018-08-08 23:55 | disposition home or self-care (01) ==
LOC: WSo 23:20 → LDRP 23:22 → WSo 23:55
PROVIDERS: ATTEND Family Medicine
DX: O99.89 Other specified diseases and conditions complicating pregnancy, childbirth and the puerperium (principal); N93.8 Other specified abnormal uterine and vaginal bleeding; Z3A.34 34 weeks gestation of pregnancy
CPT/HCPCS: 81000; 87088; 99212

== ENCOUNTER 2018-08-10 13:53 | Outpatient (CLI) | payer MEDICAID ==
[~2018-08-10] VITALS: Ht 162.6 cm; Wt 89.9 kg
[2018-08-10 14:27] LABS: BILIRUBIN,URINE NEGATIVE (NEGATIVE); COLOR,URINE YELLOW; GLUCOSE, URINE (UA) NEGATIVE (NEGATIVE); KETONES,URINE NEGATIVE (NEGATIVE); LEUKOCYTE ESTERASE ,URINE 1+ (NEGATIVE); NITRITE,URINE NEGATIVE (NEGATIVE); PH,URINE 7 (5-9); PROTEIN,URINE NEGATIVE (NEGATIVE); UROBILINOGEN,URINE NORMAL (NORMAL)
[2018-08-10 14:36] LABS: CLARITY,URINE SLIGHTLY CLOUDY
[2018-08-10 14:37] LABS: BACTERIA,URINE LARGE /HPF; SQUAMOUS EPITHELIAL CELL,UR 25-50 /HPF
[2018-08-10 15:33] LABS: BILIRUBIN,URINE NEGATIVE (NEGATIVE); CLARITY,URINE SLIGHTLY CLOUDY; COLOR,URINE YELLOW; GLUCOSE, URINE (UA) NEGATIVE (NEGATIVE); KETONES,URINE NEGATIVE (NEGATIVE); LEUKOCYTE ESTERASE ,URINE 1+ (NEGATIVE); NITRITE,URINE NEGATIVE (NEGATIVE); PH,URINE 7 (5-9); PROTEIN,URINE NEGATIVE (NEGATIVE); UROBILINOGEN,URINE NORMAL (NORMAL)
[2018-08-10 15:39] LABS: AMORPHOUS SEDIMENT,UR FEW AMOR URATES /LPF; WBC,URINE 0-2 /HPF
--- NOTE | 2018-08-14 16:58 | Physician Query-Final Dx ---
DENIA ENRIQUEZ 08/14/18 1658: Clinic Account Progress/Dx Physician Query: Please give diagnosis Date of Service Aug 10, 2018 at 13:53 LIDA CAMPOS MD 08/24/18 0737: Clinic Account Progress/Dx DIAGNOSIS: Diagnosis 1. IUP at 35w5d non labor 2. Uterine irritability 3. Previous CS DENIA ENRIQUEZ Aug 14, 2018 16:58 LIDA CAMPOS MD Aug 24, 2018 07:37
== END 2018-08-10 16:00 | disposition home or self-care (01) ==
LOC: WSo 13:53 → LDRP 13:54 → WSo 16:00
PROVIDERS: ATTEND Family Medicine
DX: O62.2 Other uterine inertia (principal); O34.211 Maternal care for low transverse scar from previous cesarean delivery; Z3A.35 35 weeks gestation of pregnancy
CPT/HCPCS: 81000; 87088; 99213

== ENCOUNTER 2018-08-23 04:59 | Outpatient (CLI) | payer MEDICAID ==
[~2018-08-23] VITALS: Ht 162.6 cm; Wt 91.6 kg
--- NOTE | 2018-08-23 05:00 | NUR ---
BENJI KUMAR presented to unit via wc from ED, accompanied by staff and so, with c/o CONTRACTIONS. BENJI KUMAR weighed, gowned, voided, and to bed. EFHM and TOCO applied, VS taken. BENJI KUMAR oriented to bed controls, call light, TV, heat, and A/C controls.
--- NOTE | 2018-08-23 05:05 | NUR ---
No record available.
[2018-08-23 05:15] VITALS: BP 115/72
[2018-08-23 05:29] LABS: BILIRUBIN,URINE NEGATIVE (NEGATIVE); CLARITY,URINE CLEAR; COLOR,URINE YELLOW; GLUCOSE, URINE (UA) NEGATIVE (NEGATIVE); KETONES,URINE NEGATIVE (NEGATIVE); LEUKOCYTE ESTERASE ,URINE NEGATIVE (NEGATIVE); NITRITE,URINE NEGATIVE (NEGATIVE); PH,URINE 8 (5-9); PROTEIN,URINE NEGATIVE (NEGATIVE); UROBILINOGEN,URINE NORMAL (NORMAL)
[2018-08-23 05:36] LABS: BACTERIA,URINE TRACE /HPF
[2018-08-23 05:42] VITALS: BP 99/70
--- NOTE | 2018-08-24 13:41 | Physician Query-Final Dx ---
ROLAND OQUENDO 08/24/18 1341: Clinic Account Progress/Dx Physician Query: Please give a diagnosis and include the weeks of gestation if known thank you Date of Service Aug 23, 2018 at 04:59 LIDA CAMPOS MD 08/28/18 0800: Clinic Account Progress/Dx DIAGNOSIS: Diagnosis 1. IUP at 36w4d without labor 2. Previous CS ROLAND OQUENDO Aug 24, 2018 13:41 LIDA CAMPOS MD Aug 28, 2018 08:00
== END 2018-08-23 05:50 | disposition home or self-care (01) ==
LOC: WSo 04:59 → LDRP 05:03 → WSo 05:50
PROVIDERS: ATTEND Family Medicine
DX: O34.219 Maternal care for unspecified type scar from previous cesarean delivery (principal); Z3A.36 36 weeks gestation of pregnancy
CPT/HCPCS: 81000; 99212

== ENCOUNTER 2018-09-08 08:59 | Outpatient (CLI) | payer MEDICAID ==
[~2018-09-08] VITALS: Ht 162.6 cm; Wt 92.1 kg
[2018-09-09] MEDS ORDERED: DOCU100C37 PO (12:49)
[2018-09-09] MEDS ORDERED: IBUP-844 PO (12:49)
[2018-09-09] MEDS ORDERED: ACHD5005 PO (12:49)
== END 2018-09-08 10:23 | disposition home or self-care (01) ==
LOC: PREOP 08:59
PROVIDERS: ATTEND Obstetrics & Gynecology
DX: Z01.818 Encounter for other preprocedural examination (principal)

== ENCOUNTER 2018-09-09 09:44 | Inpatient (IN) | payer MEDICAID ==
[~2018-09-09] VITALS: Ht 162.6 cm; Wt 90.8 kg
--- NOTE | 2018-09-09 09:50 | NUR ---
BENJI KUMAR presented to unit via AMBULATORY from ED, accompanied by S/O, with c/o CONTRACTIONS. BENJI KUMAR weighed, gowned, voided, and to bed. EFHM and TOCO applied, VS taken. BENJI KUMAR oriented to bed controls, call light, TV, heat, and A/C controls.
[2018-09-09 09:55] VITALS: BP 102/70
[2018-09-09 10:07] LABS: BILIRUBIN,URINE NEGATIVE (NEGATIVE); CLARITY,URINE SLIGHTLY CLOUDY; COLOR,URINE YELLOW; GLUCOSE, URINE (UA) NEGATIVE (NEGATIVE); KETONES,URINE NEGATIVE (NEGATIVE); LEUKOCYTE ESTERASE ,URINE 3+ (NEGATIVE); NITRITE,URINE NEGATIVE (NEGATIVE); PH,URINE 8 (5-9); PROTEIN,URINE NEGATIVE (NEGATIVE); UROBILINOGEN,URINE NORMAL (NORMAL)
[2018-09-09 10:15] LABS: BACTERIA,URINE LARGE /HPF
[2018-09-09 10:25] LABS: AMPHETAMINE SCREEN, URINE NEGATIVE (NEGATIVE); BARBITURATE SCREEN URINE NEGATIVE (NEGATIVE); BENZODIAZEPINES SCREEN URINE NEGATIVE (NEGATIVE); CANNABINOID SCREEN, URINE NEGATIVE (NEGATIVE); COCAINE SCREEN URINE NEGATIVE (NEGATIVE); METHADONE STAT NEGATIVE (NEGATIVE); METHAMPHETAMINE SCREEN URINE S NEGATIVE (NEGATIVE); OPIATE SCREEN URINE NEGATIVE (NEGATIVE); OXYCODONE STAT NEGATIVE (NEGATIVE); PROPOXYPHENE STAT NEGATIVE (NEGATIVE); TRICYCLIC ANTIDEPRESSANTS SCRE NEGATIVE (NEGATIVE)
--- NOTE | 2018-09-09 10:30 | NUR ---
reviewed SBAR report with Dr henderson. new orders received.
[2018-09-09] MEDS ORDERED: CITRIC ACID/SOB CIT (BICITRA) 30 ML UDC ONE (10:51)
[2018-09-09] MEDS ORDERED: FAMOTIDINE 20MG/2ML IV (PEPCID) ONE (10:51)
[2018-09-09] MEDS ORDERED: LACTATED RINGERS 1,000 ML IV ONE (10:51)
[2018-09-09] MEDS ORDERED: CLINDAMYCIN 900 MG/50 ML IVPB 50 ML IV NR (10:55)
[2018-09-09 10:57] LABS: BASOPHILS # (AUTO) 0.1 10^3/uL (0.0-0.1); BASOPHILS % (AUTO) 0 % (0-10); EOSINOPHILS # (AUTO) 0.2 10^3/uL (0.0-0.3); EOSINOPHILS % (AUTO) 1 % (0-10); HEMATOCRIT 35 % (35-52); HEMOGLOBIN 11.4 G/DL (11.5-16.0); LYMPHOCYTES # (AUTO) 3.3 X 10^3 (1.0-4.0); LYMPHOCYTES % (AUTO) 20 % (12-44); MEAN CORPUSCULAR HEMOGLOBIN 26 PG (25-34); MEAN CORPUSCULAR HGB CONC 32 G/DL (32-36); MEAN CORPUSCULAR VOLUME 80 FL (80-99); MEAN PLATELET VOLUME 9.6 FL (7.4-10.4); MONOCYTES # (AUTO) 1.4 X 10^3 (0.0-1.0); MONOCYTES % (AUTO) 9 % (0-12); NEUTROPHILS # (AUTO) 11.7 X 10^3 (1.8-7.8); NEUTROPHILS % (AUTO) 70 % (42-75); PLATELET COUNT 302 10^3/uL (130-400); RED CELL DISTRIBUTION WIDTH 14.7 % (10.0-14.5); WHITE BLOOD COUNT 16.6 10^3/uL (4.3-11.0)
[2018-09-09] MEDS ORDERED: CITRIC ACID/SOB CIT (BICITRA) 30 ML UDC PO ONE (11:00)
[2018-09-09] MEDS ORDERED: CATHETER FLUSH 10 ML SYR IV PRN (11:00)
[2018-09-09] MEDS ORDERED: METOCLOPRAMIDE INJ 10 MG/2 ML (REGLAN) IV ONE (11:00)
[2018-09-09 11:21] LABS: BAND NEUTROPHILS 0 %; BASOPHILS % (MANUAL) 0 %; EOSINOPHILS % (MANUAL) 1 %; LYMPHOCYTES % (MANUAL) 29 %; MONOCYTES % (MANUAL) 5 %; NEUTROPHILS % (MANUAL) 65 %
[2018-09-09 11:22] LABS: RBC MORPH NORMAL
[2018-09-09] MEDS ORDERED: CLINDAMYCIN 900 MG/50 ML IVPB 50 ML IV ONE (11:30)
--- NOTE | 2018-09-09 12:20 | History & Physical-OB ---
OB - Chief Complaint & HPI Date/Time Date of Admission: Date of Admission: Sep 09, 2018 at 10:30 Date seen by a Provider: Sep 09, 2018 Time Seen by a Provider: 11:00 Chief Complaint/History OB-Reason for Admission/Chief: Onset of Labor Hx : 4 Hx Para: 3 Expected Date of Delivery: Sep 13, 2018 Gestational Age in Weeks: 39 Gestational Age in Days: 3 Indication for : desires repeat (and salpingectomy) Admission Nurse Assessment Rev: Yes History of Labs GBS negative Allergies and Home Medications Allergies Coded Allergies: cefaclor (Verified Allergy, Intermediate, HIVES, 08/24/07) diphenhydramine (Verified Allergy, Unknown, 02/08/18) Home Medications No Active Prescriptions or Reported Meds Patient Home Medication List Home Medication List Reviewed: Yes OB - History Hx of Present Care: Yes Obstetrical Complications: None Medical Complications: None Obstetrical History Hx : 4 Hx Para: 3 Hx Termination: No Hx Total # of Abortions (Spona: 0 Hx Multiple Gestation: No Hx Complication: No Hx Induced Hypertens: No Hx Maternal Gestational Diabet: No Delivery History Hx Section: Yes Hx Blood Disorders: No Patient Past Medical History No chronic medical problems Social History/Family History Recent Infectious Disease Expo: No Alcohol Use: Denies Use Recreational Drug Use: Yes (chronic drug user of many kinds) 2nd Hand Smoke Exposure: Yes Immunizations Tetanus Booster (TDap): Unknown Date of Influenza Vaccine: Jun 23, 2018 OB - Admission Exam Physical Exam Vitals: Vital Signs 09/09/18 09:55 Pulse 118 Resp 20 B/P (MAP) 102/70 (81) O2 Delivery Room Air HEENT: Moist Membranes Heart: Rhythm Normal Lungs: Clear Abdomen: Gravid Cervical Dilatation: Fingertip Membranes: Intact Accelerations: Accelerations Present Contractions on Admission: 6-10 Minutes Apart Intensity: Mild Labs Laboratory Tests Test 09/09/18 09:55 09/09/18 10:46 Range/Units Urine Color YELLOW Urine Clarity SLIGHTLY CLOUDY Urine pH 8 5-9 Urine Specific [place] 1.020 1.016-1.022 Urine Protein NEGATIVE NEGATIVE Urine Glucose (UA) NEGATIVE NEGATIVE Urine Ketones NEGATIVE NEGATIVE Urine Nitrite NEGATIVE NEGATIVE Urine Bilirubin NEGATIVE NEGATIVE Urine Urobilinogen NORMAL NORMAL MG/DL Urine Leukocyte Esterase 3+ H NEGATIVE Urine RBC (Auto) NEGATIVE NEGATIVE Urine RBC NONE /HPF Urine WBC 2-5 /HPF Urine Squamous Epithelial Cells 5-10 /HPF Urine Crystals NONE /LPF Urine Bacteria LARGE H /HPF Urine Casts NONE /LPF Urine Mucus NEGATIVE /LPF Urine Culture Indicated YES Urine Opiates Screen NEGATIVE NEGATIVE Urine Oxycodone Screen NEGATIVE NEGATIVE Urine Methadone Screen NEGATIVE NEGATIVE Urine Propoxyphene Screen NEGATIVE NEGATIVE Urine Barbiturates Screen NEGATIVE NEGATIVE Ur Tricyclic Antidepressants Screen NEGATIVE NEGATIVE Urine Phencyclidine Screen NEGATIVE NEGATIVE Urine Amphetamines Screen NEGATIVE NEGATIVE Urine Methamphetamines Screen NEGATIVE NEGATIVE Urine Benzodiazepines Screen NEGATIVE NEGATIVE Urine Cocaine Screen NEGATIVE NEGATIVE Urine Cannabinoids Screen NEGATIVE NEGATIVE White Blood Count 16.6 H 4.3-11.0 10^3/uL Red Blood Count 4.40 4.35-5.85 10^6/uL Hemoglobin 11.4 L 11.5-16.0 G/DL Hematocrit 35 35-52 % Mean Corpuscular Volume 80 80-99 FL Mean Corpuscular Hemoglobin 26 25-34 PG Mean Corpuscular Hemoglobin Concent 32 32-36 G/DL Red Cell Distribution Width 14.7 H 10.0-14.5 % Platelet Count 302 130-400 10^3/uL Mean Platelet Volume 9.6 7.4-10.4 FL Neutrophils (%) (Auto) 70 42-75 % Lymphocytes (%) (Auto) 20 12-44 % Monocytes (%) (Auto) 9 0-12 % Eosinophils (%) (Auto) 1 0-10 % Basophils (%) (Auto) 0 0-10 % Neutrophils # (Auto) 11.7 H 1.8-7.8 X 10^3 Lymphocytes # (Auto) 3.3 1.0-4.0 X 10^3 Monocytes # (Auto) 1.4 H 0.0-1.0 X 10^3 Eosinophils # (Auto) 0.2 0.0-0.3 10^3/uL Basophils # (Auto) 0.1 0.0-0.1 10^3/uL Neutrophils % (Manual) 65 % Lymphocytes % (Manual) 29 % Monocytes % (Manual) 5 % Eosinophils % (Manual) 1 % Basophils % (Manual) 0 % Band Neutrophils 0 % Blood Morphology Comment NORMAL OB - Assessment/Plan/Diagnosis Assessment Assessment: other (Early labor with hx/o previous CS) Admission Dx IUP at 39w3d in labor Previous CS Admission Status: Inpatient Order (span 2 midnights) Reason for Inpatient Admission: Repeat Plan Plan: Section (Dr Mendoza) Other Plan Repeat CS Surgery crew notified LIDA CAMPOS MD Sep 09, 2018 12:20
[2018-09-09] MEDS ORDERED: MEASLES,MUMPS,RUBELLA 1 EA INJ SC SCH (12:45)
[2018-09-09] MEDS ORDERED: fentaNYL INJECTION 100 MCG/2 ML AMP ONE (12:45)
[2018-09-09] MEDS ORDERED: HYDROmorphone 2 MG/ML VIAL (DILAUDID) IV PRN (12:45)
[2018-09-09] MEDS ORDERED: TETANUS,DIPTH,PERTUSS P/F (BOOSTRIX) 0.5 ML VIAL IM SCH (12:45)
--- NOTE | 2018-09-09 12:46 | Progress Note-Pre Operative ---
Pre-Operative Progress Note H&P Reviewed The H&P was reviewed, patient examined and no changes noted. Date Seen by Provider: Sep 09, 2018 Time Seen by Provider: 12:20 Date H&P Reviewed: Sep 09, 2018 Time H&P Reviewed: 12:25 Pre-Operative Diagnosis: Previous c/s x 3, Fam Hx Ovar. FRITZ Valdez DO Sep 09, 2018 12:46 pm
--- NOTE | 2018-09-09 12:47 | Discharge Inst-Women's Service ---
Discharge Inst-Women's Serv Depart Medication/Instructions New, Converted or Re-Newed RX: RX on Chart Final Diagnosis POD 2 RLTCS w/ RRS Consults/Follow Up Additional Follow Up: Yes Orders/Referrals Dr. Mendoza in 7-[address] Santiago in 6 weeks Activity Activity: Activity as Tolerated Driving Instructions: No Driving for 1 Week NO SMOKING: NO SMOKING Nothing Inside Vagina: No Douching, No Moody, No Tampons Diet Discharge Diet: No Restrictions Symptoms to Report to : Bleeding Excessive, Pain Increased, Fever Over 101 Degrees F, Vaginal Bleeding Increase, Questions/Concerns For Any Problems or Questions: Contact Your Physician Skin/Wound Care Infection Signs and Symptoms: Increased Redness, Foul Odor of Wound, Increased Drainage, Skin Itchy or Has a Rash, Increased Swelling, Temperature Above 101 F Operative Area Clean and Dry: Keep Incision Clean/Dry Stitches/Dragan/Dermabond: Dermabond, Care of Stitches Bathing Instructions: FRITZ Beltran DO Sep 09, 2018 12:47 pm
[2018-09-09] MEDS ORDERED: DOCU100C37 PO (12:49)
[2018-09-09] MEDS ORDERED: ACHD5005 PO (12:49)
[2018-09-09] MEDS ORDERED: IBUP-844 PO (12:49)
[2018-09-09] MEDS ORDERED: OXYTOCIN/NORMAL SALINE 1,000 ML IV ONE (13:39)
[2018-09-09] MEDS ORDERED: LIDOCAINE PF 2% 5 ML (XYLOCAINE) VIAL ONE (13:39)
[2018-09-09] MEDS ORDERED: PHENYLEPHRINE 100 MCG/ML 10 ML (ANESTHESIA) SYR ONE (13:39)
[2018-09-09 14:15] VITALS: BP 97/76
[2018-09-09] MEDS ORDERED: BUPIVACAINE 0.5% 30 ML (SENSORCAINE) VIAL ONE (14:41)
[2018-09-09] MEDS: KETOROLAC 30 MG/ML VIAL IVP SCH ×2 (15:30→20:36)
--- NOTE | 2018-09-09 16:10 | NUR ---
rn to bedside. patient sitting up holding in arms. s/o present. vitals taken. reviewed with patient of need to check fundus and bleeding. blood soaked gown and blankets noted. large amount of blood and clots noted at perineum. patient denies pain or lightheadedness. A/O x3 ffu/0, constant trickle noted at perineum. no clots expressed with fundal massage. 1615 pericare performed. bed changed. repositioned to high fowlers. 1622 dr cosme notified of bleeding concerns and a minimum estimation of 400 cc of blood. will weigh pads and linens. reveiwed most recent vitals. patients denial of pain. new orders received. 1624 hemabate given IM in LAT> 1635 pads and linens weighed for more accurate blood loss. approx 700cc. 1640 patient sitting up in bed holding visiting with s/o denies pain or need. moderate amount of flow noted. no clots expressed with fundal massage.
[2018-09-09 16:15] VITALS: BP 97/71
[2018-09-09] MEDS ORDERED: METHYLERGONOVINE 0.2 MG/ML (METHERGINE) AMP ONE ×2 (16:22→18:21)
[2018-09-09] MEDS ORDERED: CARBOPROST (HEMABATE) 250 MCG/ML AMP IM ONE (17:00)
[2018-09-09] MEDS: OXYTOCIN/NORMAL SALINE 500 ML IV SCH ×3 (17:00→21:14)
--- NOTE | 2018-09-09 17:00 | NUR ---
rn to bedside. patient sitting in high fowlers eating dinner watching TV with s/o. pitocin increased to 999ml/hr till current bag is empty. hemabate given IM in LAT as ordered. patient eating denies nausea, dizziness, or pain. infant in open crib. continuing to monitor closely. fundus firm u/0 moderate-heavy flow constant oozing noted at perineum. no clots expressed.
--- NOTE | 2018-09-09 17:20 | NUR ---
pericare performed by this RN. s/o remains at bedside. patient denies concerns or need. new vpad and chucks under patient. repositioned to semifowler. pitocin decreased to 200cc/hr per dr cosme.
--- NOTE | 2018-09-09 18:10 | NUR ---
bleeding moderate. pads weighed approx 75cc. no clots expressed with massage. continues to watch TV . s/o at bedside reports feeling of nausea and diffuse pain over abdomen. pericare performed. denies further request at this time. 1814 dr cosme given patient update on bleeding, vitals , abdominal pain and nausea. new order received.
[2018-09-09] MEDS ORDERED: METHYLERGONOVINE 0.2 MG/ML (METHERGINE) AMP IM ONE (18:15)
--- NOTE | 2018-09-09 18:20 | NUR ---
vomited large amount of emesis. request nausea meds. 182 methergine given as ordered in LAT and Zofran 4mg administered IV as ordered see eMAR.
--- NOTE | 2018-09-09 18:21 | OPERATIVE REPORT ---
DATE OF SERVICE: 09/09/2018 PREOPERATIVE DIAGNOSES: 1. A 32-year-old G4, P3 at 39 weeks gestation. 2. Previous section x3. 3. Active labor. 4. Family history of ovarian cancer. POSTOPERATIVE DIAGNOSES: 1. A 32-year-old G4, P3 at 39 weeks gestation. 2. Previous section x3. 3. Active labor. 4. Family history of ovarian cancer. PROCEDURE: Repeat low transverse section with bilateral risk reducing salpingectomy. SURGEON: Kenny Mccollum DO AVIONICS SYSTEM ENGINEER: Dr. Sarwat Santiago. ANESTHESIA: Spinal. ESTIMATED BLOOD LOSS: 600 mL. URINE OUTPUT: 75 mL clear at the end of the procedure. FLUIDS: 1000 mL of lactated Ringer's solution. FINDINGS: A live male infant weighing 6 pounds 10 ounces, Apgars 9 and 9, grossly normal appearing bilateral fallopian tubes and ovaries. A uterine window at the time of incision into the peritoneum cavity. SPECIMENS SENT: Placenta. INDICATIONS FOR PROCEDURE: This 32-year-old female presented to the labor unit in active labor. She had previously been counseled in my office about risk reducing salpingectomy and family history of ovarian cancer was reviewed. We discussed risk of including risk of bleeding, infection, damage to surrounding structures including, but not limited to bowel, bladder, ureter, kidney, possible postoperative risk and complications, need for blood transfusions and even . After everything was discussed with the patient in detail, consent was obtained in the preoperative area and the patient was taken to the operating room. DESCRIPTION OF PROCEDURE: Once in the operating room, spinal anesthesia was found to be adequate. She was placed in supine position with a leftward tilt, prepped and draped in normal sterile fashion. A Pfannenstiel skin incision was made through the previously existing scar using a knife and carried down to underlying fascia using Bovie cautery. Fascial incision was extended laterally using Bovie cautery. The superior aspect of the fascial incision was then grasped with Jannet clamps, tented up and dissected off the underlying rectus muscles. The inferior aspect of the fascial incision was then grasped with Jannet clamps, tented up and dissected off the underlying rectus muscles. The rectus muscle was then dissected down the midline using sharp dissection, which exposed the peritoneum, which I extended rectus incision superior and inferiorly with Sigala scissors, which allowed me to enter the peritoneum bluntly. Once I entered the peritoneum bluntly, I am able to extend this incision bluntly and I placed Matias ring retractor in the peritoneal incision, which offered second lateral sidewall retraction. There was a small uterine window noted approximately 4 cm of the previous low transverse incision scar. I made an incision through this iatrogenically rupturing the membranes. Clear fluid was noted. I extended the uterine incision laterally and superiorly using bandage scissors. The infant was found in the vertex presentation. With gentle fundal pressure, the infant's head was elevated and the nares and oropharynx were then bulb suctioned. Anterior and posterior shoulders were delivered. was then brought out to the operative field where the cord was doubly clamped and cut and the was taken off of the operative field by Dr. Santiago. Cord blood was collected. Three-vessel cord with intact placenta was delivered spontaneously thereafter. IV Pitocin was initiated to facilitate uterine contraction. Uterine fundus became firmer with bimanual massage. Uterus was then exteriorized and cleared of all endometrial clots and debris. I then closed the uterine incision using 0 Vicryl suture in running locked fashion. Second layer of imbricating 0 Monocryl was placed. Excellent hemostasis was noted after doing this. I then took my attention to the fallopian tubes where using the LigaSure device, I bipolar cauterized the proximal isthmic portion and went down the mesosalpinx, cauterizing and sealing and cutting as I go. I did this bilaterally on both fallopian tubes. I then took my attention back to the pelvis and took the uterus back in the pelvis and copiously irrigated the pelvis using normal saline with no active bleeding noted from any of my dissection planes. I then placed Interceed antiadhesive over my low transverse incision and proceeded with closing the peritoneum and rectus muscles in one layer using 3-0 Vicryl suture in a running fashion. The fascia was reapproximated using 0 Vicryl suture in a running fashion. The skin was reapproximated using 4-0 Monocryl in a running subcuticular. Dermabond was applied to the incision and sterile dressing with adhesive white tape. The patient tolerated the procedure well and was taken to recovery area in stable condition. Lap and sponge counts were correct at the end of the procedure. Instrument count was correct as well. 500 mg of clindamycin was given preoperatively for infection prophylaxis. Gregg ID: [id number] DocumentID: [id number] Dictated Date: 09/09/2018 14:32:20 Car Barn Laborer Date: 09/09/2018 18:21:04 Dictated By: KENNY MCCOLLUM DO
[2018-09-09] MEDS: ONDANSETRON 4 MG/2 ML (SDV) Z0FRAN IVP PRN (18:25)
[2018-09-09] MEDS: HYDROcodone/APAP 5 MG/325 MG (LORTAB) TAB PO PRN (19:10)
[2018-09-09] MEDS: DOCUSATE SODIUM 100 MG (COLACE) CAP PO SCH (20:18)
[2018-09-09] MEDS: CATHETER FLUSH 10 ML SYR IV SCH ×2 (20:18→21:13)
[2018-09-09] MEDS: IBUPROFEN 600 MG (MOTRIN) TAB PO SCH (20:18)
[2018-09-09 20:36] VITALS: BP 128/85
[2018-09-09] MEDS ORDERED: OXYTOCIN/NORMAL SALINE 500 ML IV ONE (21:11)
[2018-09-10 00:35] VITALS: BP 95/65
[2018-09-10] MEDS: HYDROcodone/APAP 5 MG/325 MG (LORTAB) TAB PO PRN ×4 (00:35→19:55)
[2018-09-10] MEDS ORDERED: D5 LR IV SOLUTION 1,000 ML IV ONE (01:11)
[2018-09-10] MEDS: KETOROLAC 30 MG/ML VIAL IVP SCH ×2 (01:38→08:58)
[2018-09-10] MEDS: CATHETER FLUSH 10 ML SYR IV SCH (01:38)
[2018-09-10] MEDS: IBUPROFEN 600 MG (MOTRIN) TAB PO SCH ×4 (01:41→23:48)
[2018-09-10 04:10] VITALS: BP 95/55
[2018-09-10 06:27] LABS: BASOPHILS % (AUTO) 0 % (0-10); EOSINOPHILS # (AUTO) 0.2 10^3/uL (0.0-0.3); EOSINOPHILS % (AUTO) 1 % (0-10); HEMATOCRIT 29 % (35-52); HEMOGLOBIN 9.2 G/DL (11.5-16.0); LYMPHOCYTES # (AUTO) 2.6 X 10^3 (1.0-4.0); LYMPHOCYTES % (AUTO) 17 % (12-44); MEAN CORPUSCULAR HEMOGLOBIN 26 PG (25-34); MEAN CORPUSCULAR HGB CONC 32 G/DL (32-36); MEAN CORPUSCULAR VOLUME 81 FL (80-99); MEAN PLATELET VOLUME 9.8 FL (7.4-10.4); MONOCYTES # (AUTO) 1.6 X 10^3 (0.0-1.0); MONOCYTES % (AUTO) 10 % (0-12); NEUTROPHILS # (AUTO) 10.7 X 10^3 (1.8-7.8); NEUTROPHILS % (AUTO) 71 % (42-75); PLATELET COUNT 272 10^3/uL (130-400); RED BLOOD COUNT 3.56 10^6/uL (4.35-5.85); RED CELL DISTRIBUTION WIDTH 14.2 % (10.0-14.5)
[2018-09-10 08:45] VITALS: BP 109/73
--- NOTE | 2018-09-10 12:59 | Postpartum Progress Note ---
Note Note Day # 1 Subjective: Patient is without complaints. Ambulating, voiding. Tolerating a regular diet without nausea or vomiting. Normal lochia. Pain is well controlled with oral pain medications. Yesterday had an episode of heavy bleeding postoperatively after leaving recovery, totalling almost 800 cc of blood loss. She was given 0.2 mg dose of methergine 4 hrs apart x 2 doses and given 250mcg of carboprost, along with 2, 30 u pitocin doses IV wide open with NS. Bleeding subsided after this and patient has been doing very well. She denies lightheadedness or dizzyness upon ambulation. Objective: [] Physical Exam: General - Alert and oriented, no apparent distress Abdomen - Soft, appropriately tender to palpation, non-distended, fundus firm at umbilicus Extremities - no edema, negative Jaylan's bilaterally Incision- c/d/i Assessment: PPD 1 RLTCS w/ RRS Acute blood loss anemia PP Hemorrhage, stable Plan: Routine care. Encourage breast feeding. Encourage ambulation. Ferrous sulfate supplementation. Plan for discharge tomorrow Vitals - Labs Vital Signs - I&O Vital Signs Date Time Temp Pulse Resp B/P (MAP) Pulse Ox O2 Delivery O2 Flow Rate FiO2 09/10/18 08:45 98.3 85 20 109/73 (85) 98 Room Air 09/10/18 04:10 98.2 92 18 95/55 (68) 98 Room Air 09/10/18 00:35 98.4 76 20 95/65 (75) 98 Room Air 09/09/18 20:36 98.4 84 20 128/85 (99) 98 Room Air 09/09/18 19:35 Room Air 09/09/18 16:15 97 20 97/71 (80) Room Air 09/09/18 14:15 97 20 97/76 (83) Room Air I & O 09/10/18 07:00 Intake Total 4350 ml Output Total 4300 ml Balance 50 ml Labs Laboratory Tests 09/09/18 17:48: Hemoglobin 10.5L 09/10/18 06:08: Hemoglobin 9.2L, White Blood Count 15.0H, Red Blood Count 3.56L, Hematocrit 29L , Mean Corpuscular Volume 81, Mean Corpuscular Hemoglobin 26, Mean Corpuscular Hemoglobin Concent 32, Red Cell Distribution Width 14.2, Platelet Count 272, Mean Platelet Volume 9.8, Neutrophils (%) (Auto) 71, Lymphocytes (%) (Auto) 17, Monocytes (%) (Auto) 10, Eosinophils (%) (Auto) 1, Basophils (%) (Auto) 0, Neutrophils # (Auto) 10.7H, Lymphocytes # (Auto) 2.6, Monocytes # (Auto) 1.6H, Eosinophils # (Auto) 0.2, Basophils # (Auto) 0.0 Microbiology 09/09/18 Urine Culture - Preliminary, Resulted Culture In Progress FRITZ MCCOLLUM DO Sep 10, 2018 12:59 pm
[2018-09-10 13:30] VITALS: BP 95/58
--- NOTE | 2018-09-10 13:30 | NUR ---
patient c/o increasing pains in shoulder from post op gas. reports ambulation in hallways today and off floor with increasing PO intake has provided relief. vitals taken, request pain medications for incisional/abdominal pain. see EMAR>
--- NOTE | 2018-09-10 13:36 | NUR ---
dr cosme notified of patient gas pains. new orders received.
[2018-09-10 17:15] VITALS: BP 103/64
[2018-09-10] MEDS: SIMETHICONE 80 MG (MYLICON) CHEW PO SCH (17:15)
[2018-09-10] MEDS: DOCUSATE SODIUM 100 MG (COLACE) CAP PO SCH (19:55)
[2018-09-10 23:46] VITALS: BP 108/71
[2018-09-11] MEDS: IBUPROFEN 600 MG (MOTRIN) TAB PO SCH ×2 (06:17→12:04)
--- NOTE | 2018-09-11 08:22 | Postpartum Progress Note ---
Note Note Day # 2 Subjective: Patient is without complaints. Ambulating, voiding. Tolerating a regular diet without nausea or vomiting. Normal lochia. Pain is well controlled with oral pain medications. Objective: Vital Sign - Last 24 Hours 09/10/18 09/10/18 09/10/18 09/10/18 08:45 13:30 17:15 23:46 Temp 98.3 98.0 98.0 97.7 Pulse 85 88 103 93 Resp 20 20 20 20 B/P (MAP) 109/73 (85) 95/58 (70) 103/64 (77) 108/71 (83) Pulse Ox 98 98 98 98 O2 Delivery Room Air Room Air Room Air Room Air Intake and Output 09/10/18 09/10/18 09/11/18 15:00 23:00 07:00 Intake Total 2510 ml 1200 ml Output Total 2150 ml 1300 ml Balance 360 ml -100 ml Physical Exam: General - Alert and oriented, no apparent distress Abdomen - Soft, appropriately tender to palpation, non-distended, fundus firm at umbilicus Extremities - no edema, negative Jaylan's bilaterally Incision-c/d/i Assessment: PPD 2 RLTCS w/ RRS Acute blood loss anemia PP Hemorrhage, stable Plan: Routine care. Encourage breast feeding. Encourage ambulation. Ferrous sulfate supplementation. Plan for discharge today Vitals - Labs Vital Signs - I&O Vital Signs Date Time Temp Pulse Resp B/P (MAP) Pulse Ox O2 Delivery O2 Flow Rate FiO2 09/10/18 23:46 97.7 93 20 108/71 (83) 98 Room Air 09/10/18 17:15 98.0 103 20 103/64 (77) 98 Room Air 09/10/18 13:30 98.0 88 20 95/58 (70) 98 Room Air 09/10/18 08:45 98.3 85 20 109/73 (85) 98 Room Air I & O 09/11/18 07:00 Intake Total 3710 ml Output Total 3450 ml Balance 260 ml Labs Microbiology 09/09/18 Urine Culture - Preliminary, Resulted Culture In Progress FRITZ MCCOLLUM DO Sep 11, 2018 8:22 am
--- NOTE | 2018-09-11 08:43 | NUR ---
CM/SS called and voicemail left for DCF worker (Vandana Bennett) and [facility] worker (Steffi).
--- NOTE | 2018-09-11 09:35 | NUR ---
CM/SS completed DCF online report, intake number [id number].
[2018-09-11 09:45] VITALS: BP 105/76
[2018-09-11] MEDS: DOCUSATE SODIUM 100 MG (COLACE) CAP PO SCH (09:45)
[2018-09-11] MEDS: HYDROcodone/APAP 5 MG/325 MG (LORTAB) TAB PO PRN (09:45)
[2018-09-11] MEDS: SIMETHICONE 80 MG (MYLICON) CHEW PO SCH ×2 (09:45→14:42)
[2018-09-11] MEDS: ONDANSETRON 4 MG/2 ML (SDV) Z0FRAN IVP PRN (09:52)
--- NOTE | 2018-09-11 10:21 | Anesthesia-Regional Post-Op ---
Regional Patient Condition Mental Status: Alert, Oriented x3 Circulation: Same as Pre-Op Headache: Absent Sensation: Full Recovery Motor Block: Absent Post Op Complications Complications None Follow Up Care/Instructions Patient Instructions None needed. Anesthesia/Patient Condition Patient is doing well, no complaints, stable vital signs, no apparent adverse anesthesia problems. No complications reported per nursing. EITAN KINCAID CRNA Sep 11, 2018 10:21
--- NOTE | 2018-09-11 10:46 | NUR ---
CM/SS spoke with nursery RNs and family to update on status of waiting for DCF to investigate. Parents were concerned baby might be pulled from their care due to the other children being in foster care. Family stated that they do not have a home of their own at this time but will be staying with mother's sister, Amy Cagle at [address], [facility].
--- NOTE | 2018-09-11 11:47 | NUR ---
CM/FIDEL spoke with Qian ([facility], ), she is reviewing all information on the report and talking with the family's DCF Foster Care worker, then she will be out to the hospital to speak to the parents. Provided her with my contact info and she was going to call when on way to the hospital and will meet on women's services.
[2018-09-11] MEDS: CATHETER FLUSH 10 ML SYR IV SCH (12:05)
--- NOTE | 2018-09-11 13:20 | NUR ---
CM/SS met with DCF (Qian) and the family. DCF gathered more information. Family reports having court scheduled for other children on the of this month. Family should have HUD this month, but, discussed how this could be effected by the government shutdown. Qian with DCF was not able to give an definitive answer at this time and will let all know after she meets with her janitor supervisor again and verifies some of the information the family provided.
--- NOTE | 2018-09-11 15:36 | NUR ---
POST OP HOME INSTRUCTIONS GIVEN. PT TEARFUL THIS SHIFT AND HAS HAD BABY IN ROOM. DCF WILL DETERMINE INFANT STATUS.
--- NOTE | 2018-09-11 16:15 | NUR ---
CM/SS met with the family and DCF. DCF is allowing baby to go to the home with mom (Anjelica). Anjelica will be staying with her sister Amy Cagle, until HUD assistance is issued. Freddy (FOB) will not be allowed to be living in that home or to be around baby without Anjelica's mother being present, this along with both having no use of illegal substances was part of the extensive safety plan that DCF put into place. Family will participate in A/D and MH counseling with [facility]. They will have [employer] Supervisor [place] and [facility] in place in the home. They will continue to meet with [facility] and DCF. Jose was updated and provided copies of safety plan that DCF provided.
== END 2018-09-11 15:41 | disposition home or self-care (01) | DRG 784 ==
LOC: WSo 09:44 → LDRP 09:47 → WSo 10:30 → LDRP 10:30
PROVIDERS: ADMIT Family Medicine; ATTEND Family Medicine
PROC: 0UT70ZZ Resection of Bilateral Fallopian Tubes, Open Approach (ICD-10-PCS; 2018-09-09)
PROC: 10D00Z1 Extraction of Products of Conception, Low, Open Approach (ICD-10-PCS; principal; 2018-09-09 12:48)
DX: O34.211 Maternal care for low transverse scar from previous cesarean delivery (principal); O72.2 Delayed and secondary postpartum hemorrhage; O99.03 Anemia complicating the puerperium; D62 Acute posthemorrhagic anemia; Z80.41 Family history of malignant neoplasm of ovary; Z3A.39 39 weeks gestation of pregnancy; Z37.0 Single live birth
CPT/HCPCS: 36415; 80306; 81000; 85007; 85018; 85025; 85027; 86850; 86900; 86901; 87088; 90715; 94664; 99212

== ENCOUNTER 2023-06-30 03:04 | Emergency (ER) | payer SELFPAY ==
[~2023-06-30] VITALS: Ht 165.1 cm; Wt 90.9 kg
[~2023-06-30 03:04] MED LIST changes: +ACHD5005 PO; +CYCL10TA25; -CYCL10TA9; +IBUP-844 PO; -OXYC-465 PO; +OXYC-556 PO
[2023-06-30 03:25] VITALS: BP 143/108
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
== END 2023-06-30 03:18 | disposition left against medical advice (07) ==
LOC: EDUNIT# 03:04 → ER 03:05
DX: M25.552 Pain in left hip (principal); M54.50 Low back pain, unspecified; R10.30 Lower abdominal pain, unspecified; F17.210 Nicotine dependence, cigarettes, uncomplicated; Y04.8XXA Assault by other bodily force, initial encounter

== ENCOUNTER 2023-06-30 05:51 | Emergency (ER) | payer SELFPAY ==
[~2023-06-30] VITALS: Ht 165 cm; Wt 81.0 kg
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
[2023-06-30 07:08] LABS: BASOPHILS # (AUTO) 0.1 10^3/uL (0.0-0.1); BASOPHILS % (AUTO) 1 % (0-10); EOSINOPHILS # (AUTO) 0.9 10^3/uL (0.0-0.3); EOSINOPHILS % (AUTO) 7 % (0-10); HEMATOCRIT 44 % (35-52); LYMPHOCYTES # (AUTO) 3.2 10^3/uL (1.0-4.0); LYMPHOCYTES % (AUTO) 26 % (12-44); MEAN CORPUSCULAR HEMOGLOBIN 29 pg (25-34); MEAN CORPUSCULAR HGB CONC 32 g/dL (32-36); MEAN CORPUSCULAR VOLUME 89 fL (80-99); MEAN PLATELET VOLUME 9.3 fL (9.0-12.2); MONOCYTES # (AUTO) 1.1 10^3/uL (0.0-1.0); MONOCYTES % (AUTO) 9 % (0-12); NEUTROPHILS # (AUTO) 7.2 10^3/uL (1.8-7.8); NEUTROPHILS % (AUTO) 57 % (42-75); PLATELET COUNT 363 10^3/uL (130-400); POTASSIUM 3.7 MMOL/L (3.6-5.0); WHITE BLOOD COUNT 12.5 10^3/uL (4.3-11.0)
[2023-06-30 07:09] LABS: CALCIUM 9.4 MG/DL (8.5-10.1)
[2023-06-30 07:10] LABS: TOTAL PROTEIN 7.3 GM/DL (6.4-8.2)
[2023-06-30] MEDS: IOHEXOL 350 MG/ML 100 ML (OMNIPAQUE 350) VIAL IV ONE (07:11)
[2023-06-30 07:12] LABS: BILIRUBIN,TOTAL 0.3 MG/DL (0.1-1.0)
[2023-06-30] MEDS: NS 100 ML (IVPB) BAG IV ONE (07:12)
[2023-06-30 07:14] LABS: CREATININE SERUM 0.87 MG/DL (0.60-1.30)
[2023-06-30] MEDS ORDERED: HOLD METFORMIN - RECEIVED CONTRAST 20 ML VIAL IV SCH (07:15)
--- NOTE | 2023-06-30 07:46 | Diagnostic Imaging Report ---
PROCEDURE: CT abdomen and pelvis with contrast. TECHNIQUE: Multiple contiguous axial images were obtained through the abdomen and pelvis after administration of intravenous contrast. Auto Exposure Controls were utilized during the CT exam to meet ALARA standards for radiation dose reduction. All CT scans use one or more of the following dose optimizing techniques: automated exposure control, MA and/or KvP adjustment based on patient size and exam type or iterative reconstruction. INDICATION: 37-year-old female, abdominal pain. CORRELATION STUDY: None. FINDINGS: LOWER THORAX: Clear. LIVER: Unremarkable. GALLBLADDER: Slightly contracted, otherwise unremarkable. SPLEEN: Unremarkable. PANCREAS: Unremarkable. ADRENAL GLANDS: Unremarkable. KIDNEYS: Normal configuration. No calcification or obstruction. ABDOMINAL AORTA: Trace wall calcification, nonaneurysmal. GASTROINTESTINAL TRACT: No obstruction or inflammation. Normal appendix. Moderate stool retention through the colon. URINARY BLADDER: Unremarkable. REPRODUCTIVE: Unremarkable. OSSEOUS STRUCTURES: Leftward curvature of the lumbar spine. IMPRESSION: 1. Negative for acute abnormality of the abdomen or pelvis. Dictated by: Dictated on workstation # [id number]
[2023-06-30 08:00] VITALS: BP 137/93
== END 2023-06-30 08:00 | disposition home or self-care (01) ==
LOC: EDUNIT# 05:51 → ER 05:53
DX: S70.02XA Contusion of left hip, initial encounter (principal); S30.1XXA Contusion of abdominal wall, initial encounter; E66.9 Obesity, unspecified; Z68.33 Body mass index [BMI] 33.0-33.9, adult; W51.XXXA Accidental striking against or bumped into by another person, initial encounter
CPT/HCPCS: 36415; 74177; 80053; 85025